=== PATIENT | female | born 1995 | race Caucasian/White ===

== ENCOUNTER 2019-01-13 01:35 | Emergency (ER) | payer BC, OTHER ==
[2019-01-13] MEDS ORDERED: PANTOPRAZOLE 40 MG INJ ONE (01:57)
[2019-01-13] MEDS ORDERED: PROMETHAZINE 25 MG/ML VIAL ONE (01:57)
[2019-01-13] MEDS ORDERED: NA CHLORIDE 0.9% 1,000 ML ONE ×2 (01:57→03:53)
[2019-01-13] MEDS ORDERED: LORazepam 2 MG/ML VIAL ONE (02:00)
[2019-01-13 03:19] LABS: Absolute Lymphocytes (CBC) 0.8 K/uL (0.7-4.9); Basophils % 0.2 % (0-1.3); Hematocrit 40.7 % (36.0-45.0); Lymphocytes % 6.2 % (15.3-44.8); MPV 9.1 fL (7.6-11.3); RBC Red Blood Cell Count 4.76 M/uL (3.86-4.86)
[2019-01-13 03:28] LABS: Albumin 4.3 g/dL (3.4-5.0); Bilirubin Direct 0.2 mg/dL (0-0.2); Bilirubin Total 0.8 mg/dL (0.2-1.0); Potassium 3.9 mmol/L (3.5-5.1); Protein, Total 8.3 g/dL (6.4-8.2)
--- NOTE | 2019-01-13 03:52 | EDPHYS ---
Physician Documentation [facility] Name: Linda Yoder Age: 23 yrs Sex: Female : 1995 Arrival Date: 01/13/2019 Time: 01:38 Bed 6 Private MD: ED Physician Kojo Moses HPI: 01/13 01:56 This 23 yrs old Female presents to ER via Unassigned with complaints of snw Abdominal Pain, Vomiting Blood. 01:56 The patient presents with abdominal pain that is diffuse. Onset: The symptoms/episode snw began/occurred suddenly, at 22:00. The symptoms radiate to left lower quadrant. Associated signs and symptoms: Pertinent positives: nausea and vomiting, vomiting blood. The symptoms are described as crampy. Severity of pain: At its worst the pain was mild moderate. The patient has experienced a previous episode, but today's symptoms are worse. It is unknown whether or not the patient has recently seen a physician. 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 - Social history:: Smoking status: Patient/guardian denies using tobacco. - Ebola Screening: : No symptoms or risks identified at this time. ROS: 01:56 Eyes: Negative for injury, pain, redness, and discharge, ENT: Negative for injury, snw pain, and discharge, Neck: Negative for injury, pain, and swelling, Cardiovascular: Negative for chest pain, palpitations, and edema, Respiratory: Negative for shortness of breath, cough, wheezing, and pleuritic chest pain. 01:56 Back: Negative for injury and pain, : Negative for injury, bleeding, discharge, and swelling, MS/Extremity: Negative for injury and deformity, Skin: Negative for injury, rash, and discoloration, Neuro: Negative for headache, weakness, numbness, tingling, and seizure, Psych: Negative for depression, anxiety, suicide ideation, homicidal ideation, and hallucinations. 01:56 Constitutional: Positive for poor PO intake. 01:56 Abdomen/GI: Positive for abdominal pain, nausea, vomiting, hematemesis. Exam: 01:53 Head/Face: Normocephalic, atraumatic. Eyes: Pupils equal round and reactive to light, snw extra-ocular motions intact. Lids and lashes normal. Conjunctiva and sclera are non-icteric and not injected. Cornea within normal limits. Periorbital areas with no swelling, redness, or edema. ENT: Nares patent. No nasal discharge, no septal abnormalities noted. Tympanic membranes are normal and external auditory canals are clear. Oropharynx with no redness, swelling, or masses, exudates, or evidence of obstruction, uvula midline. Mucous membranes moist. Neck: Trachea midline, no thyromegaly or masses palpated, and no cervical lymphadenopathy. Supple, full range of motion without nuchal rigidity, or vertebral point tenderness. No Meningismus. Chest/axilla: Normal chest wall appearance and motion. Nontender with no deformity. No lesions are appreciated. 01:53 Back: No spinal tenderness. No costovertebral tenderness. Full range of motion. MS/ Extremity: Pulses equal, no cyanosis. Neurovascular intact. Full, normal range of motion. Neuro: Awake and alert, GCS 15, oriented to person, place, time, and situation. Cranial nerves II-XII grossly intact. Motor strength 5/5 in all extremities. Sensory grossly intact. Cerebellar exam normal. Normal gait. 01:53 Constitutional: The patient appears alert, awake, anxious, hyperventilating 01:53 Cardiovascular: Rate: tachycardic, actual rate is 145 bpm, Rhythm: regular, Pulses: no pulse deficits are appreciated. 01:53 Respiratory: the patient does not display signs of respiratory distress, Respirations: shallow respirations, tachypnea, that is severe, + carpal/pedal tingling, spasms, Breath sounds: are clear throughout. 01:53 Abdomen/GI: Inspection: scar(s), stretch byers, Bowel sounds: diminished, Palpation: mild abdominal tenderness, in the right upper quadrant, left upper quadrant and right lower quadrant, moderate abdominal tenderness, in the left lower quadrant. 01:53 Skin: Appearance: Color: pale, Temperature: normal temperature, Moisture: dry. 01:53 Psych: Behavior/mood is anxious, Affect is animated, Oriented to person, place, time. 03:56 Abdomen/GI: Rectal exam: is unremarkable, rectal tone normal, Stool: guaiac negative, earle hemorrhoid(s), are not appreciated, mass, is not appreciated, swelling, is not appreciated. Vital Signs: 01:45 BP 126 / 98; Pulse 133; Resp 20; Temp 98(O); Pulse Ox 100% on R/A; Weight 68.04 kg; lp1 Height 5 ft. 8 in. (172.72 cm); Pain 10/10; 02:19 BP 115 / 83; Pulse 117; Resp 14; Pulse Ox 97% ; ea 03:00 BP 118 / 82; Pulse 105; Resp 16; Pulse Ox 98% on R/A; lp1 03:30 BP 125 / 79; Pulse 119; Resp 14; Pulse Ox 99% on R/A; lp1 04:00 BP 120 / 78; Pulse 111; Resp 14; Pulse Ox 99% on R/A; lp1 04:08 BP 120 / 78 Supine; Pulse 114; ea 04:09 BP 111 / 81 Sitting; Pulse 119; ea 04:11 BP 116 / 85 Standing; Pulse 127; ea 04:30 BP 117 / 78; Pulse 132; Resp 16; Pulse Ox 100% on R/A; lp1 05:13 BP 122 / 77; Pulse 128; Resp 14; Temp 98.1(O); Pulse Ox 100% on R/A; Pain 6/10; lp1 01:45 Body Mass Index 22.81 (68.04 kg, 172.72 cm) lp1 MDM: 01:54 Patient medically screened. [facility] 03:21 Data reviewed: vital signs, nurses notes. Transition of care: After a detail discussion snw of the patient's case, care is transferred to Kojo Moses MD. 01/13 01:46 Order name: [facility] 01/13 01:46 Order name: CBC with Diff; Complete Time: 06:33 snw 01/13 01:46 Order name: Creatinine for Radiology; Complete Time: 03:34 snw 01/13 01:46 Order name: Hepatic Function; Complete Time: 03:34 snw 01/13 01:46 Order name: Lipase; Complete Time: 03:34 snw 01/13 01:46 Order name: Urine Drug Screen; Complete Time: 06:33 snw 01/13 01:46 Order name: Urine Culture snw 01/13 01:46 Order name: Urine Microscopic Only; Complete Time: 06:33 snw 01/13 01:47 Order name: Basic Metabolic Panel; Complete Time: 03:34 EDMS 01/13 03:28 Order name: Manual Differential; Complete Time: 06:33 EDDE 01/13 03:49 Order name: CT Abd/Pelvis - IV Contrast Only [facility] 01/13 04:15 Order name: Chest Single View XRAY [facility] 01/13 04:50 Order name: Urine Dipstick--Ancillary (enter results); Complete Time: 06:33 wa 01/13 04:50 Order name: Urine --Ancillary (enter results); Complete Time: 06:33 mt 01/13 01:46 Order name: Labs collected and sent; Complete Time: 02:10 snw 01/13 01:46 Order name: Urine Test (obtain specimen); Complete Time: 04:50 snw 01/13 01:46 Order name: Urine Dipstick-Ancillary (obtain specimen); Complete Time: 04:50 sn 01/13 03:51 Order name: Orthostatics; Complete Time: 04:27 [facility] 01/13 05:17 Order name: EKG; Complete Time: 05:18 ak1 01/13 05:17 Order name: EKG - Nurse/Tech; Complete Time: 05:17 ak1 Administered Medications: 02:05 Drug: NS 0.9% 1000 ml Route: IV; Rate: 1 bolus; Site: right antecubital; lp1 03:30 Follow up: IV Status: Completed infusion; IV Intake: 1000ml lp1 02:05 Drug: ProTONIX 40 mg Route: IVP; Site: right antecubital; lp1 02:46 Follow up: Response: No adverse reaction lp1 02:05 Drug: Ativan 1 mg Route: IVP; Site: right antecubital; lp1 02:48 Follow up: Response: Marked relief of symptoms lp1 02:05 Drug: Phenergan 12.5 mg Route: IVP; Site: right antecubital; lp1 02:48 Follow up: Response: Marked relief of symptoms; Nausea is decreased lp1 03:57 Drug: NS 0.9% 1000 ml Route: IV; Rate: 1 bolus; Site: right antecubital; lp1 06:30 Follow up: IV Status: Completed infusion; IV Intake: 1000ml lp1 04:26 Drug: morphine 2 mg Route: IVP; Site: right antecubital; ea 04:26 Drug: Zofran 4 mg Route: IVP; Site: right antecubital; ea 05:00 Follow up: Response: No adverse reaction lp1 06:08 Drug: morphine 2 mg Route: IVP; Site: right antecubital; lp1 06:39 Follow up: Response: Pain is unchanged, physician notified lp1 06:39 Drug: morphine 4 mg {Note: RASS 0.} Route: IVP; Site: right antecubital; ea 06:40 Follow up: Response: Medication administered at discharge. lp1 06:39 Drug: Zofran 4 mg Route: IVP; Site: right antecubital; ea 06:40 Follow up: Response: No adverse reaction lp1 Disposition: 03:56 Co-signature as Attending Physician, Kojo Moses MD I agree with the assessment and earle plan of care. Disposition: 01/13/19 03:51 Transfer ordered to [facility]. Diagnosis are Abdominal tenderness, Gastrointestinal hemorrhage, unspecified - upper, Vomiting, Tachycardia, unspecified. - Reason for transfer: Higher level of care. - Accepting physician is to [facility] , . - Condition is Fair. - Problem is new. - Symptoms have improved. Signatures: Dispatcher [employer] EDKojo Morales MD MD cha Therrien, Shelly, CABINET INSTALLER-C CABINET INSTALLER-Csnw Sneha Le RN RN lp1 Yolande Greene RN RN ak1 Penny Vidal RN RN ea Corrections: (The following items were deleted from the chart) 06:40 03:51 01/13/2019 03:51 Transfer ordered to [facility]. Diagnosis is lp1 Abdominal tenderness; Gastrointestinal hemorrhage, unspecified - upper; Vomiting; Tachycardia, unspecified. Reason for transfer: Higher level of care. Accepting physician is to [facility] , . Condition is Fair. Problem is new. Symptoms have improved. earle
--- NOTE | 2019-01-13 03:52 | ER ---
Nurse's Notes [facility] Name: Linda Yoder Age: 23 yrs Sex: Female : 1995 Arrival Date: 01/13/2019 Time: 01:38 Bed 6 Private MD: Diagnosis: Abdominal tenderness;Gastrointestinal hemorrhage, unspecified-upper;Vomiting;Tachycardia, unspecified Presentation: 01/13 01:45 Presenting complaint: Patient states: Began vomiting blood at 2200, x4 episodes; lp1 Complaint of general abdominal pain, "It feels like contractions"; Patient noted to be hyperventilating, anxious. 01:45 Transition of care: patient was not received from another setting of care. Onset of lp1 symptoms was January 12, 2019 at 22:00. Risk Assessment: Do you want to hurt yourself or someone else? Patient reports no desire to harm self or others. Initial Sepsis Screen: Does the patient meet any 2 criteria? No. Patient's initial sepsis screen is negative. Does the patient have a suspected source of infection? No. Patient's initial sepsis screen is negative. Care prior to arrival: None. 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 - Social history:: Smoking status: Patient/guardian denies using tobacco. - Ebola Screening: : No symptoms or risks identified at this time. Screenin:19 Abuse screen: Denies threats or abuse. Denies injuries from another. Nutritional lp1 screening: No deficits noted. Tuberculosis screening: No symptoms or risk factors identified. Fall Risk None identified. Assessment: 02:00 General: Appears uncomfortable, Behavior is anxious. Pain: Complains of pain in abdomen lp1 Pain currently is 9 out of 10 on a pain scale. Quality of pain is described as stabbing, Pain began 4 hours ago. Neuro: Level of Consciousness is awake, alert, obeys commands, Oriented to person, place, time, situation. Cardiovascular: Patient's skin is warm and dry. Respiratory: Airway is patent Trachea midline Respiratory effort is labored, Respiratory pattern is hyperventilation Breath sounds are clear bilaterally. GI: Abdomen is non-distended, Bowel sounds present X 4 quads. Abdomen is tender to palpation X 4 quads. Reports vomiting blood x4. : No signs and/or symptoms were reported regarding the genitourinary system. EENT: Oral mucosa is moist. Good dentition noted. Derm: Skin is intact, Skin is dry, Skin is normal. Musculoskeletal: No deficits noted. 03:04 Reassessment: Patient assisted to bathroom via WC; Informed of urine specimen lp1 collection, states "I wasn't able to pee in the cup" Patient states symptoms have improved. 04:00 Reassessment: Patient resting, eyes closed, respirations unlabored. lp1 05:00 Reassessment: Patient returned from CT, mother at bedside; Updated on plan of care; lp1 Patient states pain to abdomen returning at this time. 05:28 Reassessment: Report called to YRIS Killian at [facility] for patient to transfer to [address] [place], [place] [address]er bed 141. 06:30 Reassessment: EMS at bedside for transfer. 1 Vital Signs: 01:45 BP 126 / 98; Pulse 133; Resp 20; Temp 98(O); Pulse Ox 100% on R/A; Weight 68.04 kg; lp1 Height 5 ft. 8 in. (172.72 cm); Pain 10/10; 02:19 BP 115 / 83; Pulse 117; Resp 14; Pulse Ox 97% ; ea 03:00 BP 118 / 82; Pulse 105; Resp 16; Pulse Ox 98% on R/A; lp1 03:30 BP 125 / 79; Pulse 119; Resp 14; Pulse Ox 99% on R/A; lp1 04:00 BP 120 / 78; Pulse 111; Resp 14; Pulse Ox 99% on R/A; lp1 04:08 BP 120 / 78 Supine; Pulse 114; ea 04:09 BP 111 / 81 Sitting; Pulse 119; ea 04:11 BP 116 / 85 Standing; Pulse 127; ea 04:30 BP 117 / 78; Pulse 132; Resp 16; Pulse Ox 100% on R/A; lp1 05:13 BP 122 / 77; Pulse 128; Resp 14; Temp 98.1(O); Pulse Ox 100% on R/A; Pain 6/10; lp1 01:45 Body Mass Index 22.81 (68.04 kg, 172.72 cm) lp1 ED Course: 01:38 Patient arrived in ED. ds1 01:45 Patient has correct armband on for positive identification. Placed in gown. Bed in low lp1 position. security monitor on. Pulse ox on. NIBP on. 01:50 Inserted saline lock: 20 gauge in right antecubital area, using aseptic technique. lp1 Blood collected. 01:52 Tina [facility]-C [facility]. snw 01:52 Kojo Moses MD is Attending Physician. snw 02:07 Sneha Le RN is Primary Nurse. lp1 02:15 Triage completed. lp1 02:16 Arm band placed on. lp1 03:05 No provider procedures requiring assistance completed. lp1 03:55 Radiology exam delayed due to test not completed at this time. sj 04:37 Radiology exam delayed due to test not completed at this time. kw1 04:[address] via stretcher. lp1 04:50 Chest Single View XRAY In Process Unspecified. EDMS 05:09 CT Abd/Pelvis - IV Contrast Only In Process Unspecified. EDMS 06:31 Patient transferred, IV remains in place. lp1 Administered Medications: 02:05 Drug: NS 0.9% 1000 ml Route: IV; Rate: 1 bolus; Site: right antecubital; lp1 03:30 Follow up: IV Status: Completed infusion; IV Intake: 1000ml lp1 02:05 Drug: ProTONIX 40 mg Route: IVP; Site: right antecubital; lp1 02:46 Follow up: Response: No adverse reaction lp1 02:05 Drug: Ativan 1 mg Route: IVP; Site: right antecubital; lp1 02:48 Follow up: Response: Marked relief of symptoms lp1 02:05 Drug: Phenergan 12.5 mg Route: IVP; Site: right antecubital; lp1 02:48 Follow up: Response: Marked relief of symptoms; Nausea is decreased lp1 03:57 Drug: NS 0.9% 1000 ml Route: IV; Rate: 1 bolus; Site: right antecubital; lp1 06:30 Follow up: IV Status: Completed infusion; IV Intake: 1000ml lp1 04:26 Drug: morphine 2 mg Route: IVP; Site: right antecubital; ea 04:26 Drug: Zofran 4 mg Route: IVP; Site: right antecubital; ea 05:00 Follow up: Response: No adverse reaction lp1 06:08 Drug: morphine 2 mg Route: IVP; Site: right antecubital; lp1 06:39 Follow up: Response: Pain is unchanged, physician notified lp1 06:39 Drug: morphine 4 mg {Note: RASS 0.} Route: IVP; Site: right antecubital; ea 06:40 Follow up: Response: Medication administered at discharge. lp1 06:39 Drug: Zofran 4 mg Route: IVP; Site: right antecubital; ea 06:40 Follow up: Response: No adverse reaction lp1 Intake: 03:30 IV: 1000ml; Total: 1000ml. lp1 06:30 IV: 1000ml; Total: 2000ml. lp1 Outcome: 03:51 ER care complete, transfer ordered by MD. og 05:30 Condition: stable lp1 05:30 Instructed on the need for transfer. 06:40 Transferred by ground EMS to [facility], Transfer form completed. lp1 X-rays sent w/ patient. 06:40 Patient left the ED. lp1 Signatures: Dispatcher [employer] EDKojo Morales MD MD cha Therrien, Shelly, DREDGE HAND-C DREDGE HAND-Soha [facility] Sneha Le, YRIS RN lp1 Penny Vidal RN RN ea Wilhelm, Kimberly kw1 Corrections: (The following items were deleted from the chart) 02:19 02:16 BP 126 / 98; Pulse 133bpm; Resp 20bpm; Pulse Ox 100% RA; Temp 98F Oral; 68.04 kg; lp1 Height 5 ft. 8 in.; BMI: 22.8; Pain 10/10; lp1 02:19 02:16 LMP 01/06/2019 lp1 lp1
[2019-01-13] MEDS ORDERED: ONDANSETRON 4 MG/2 ML VIAL ONE ×2 (04:20→06:38)
[2019-01-13] MEDS ORDERED: MORPHINE 2 MG/ML SYR ONE ×2 (04:20→06:04)
[2019-01-13 05:06] LABS: Blood Morphology Comment NOT SEEN (NOT SEEN); Platelet Estimate ADEQ
[2019-01-13 05:08] LABS: Barbiturates NEGATIVE (NEGATIVE); Benzodiazepines NEGATIVE (NEGATIVE); Cocaine NEGATIVE (NEGATIVE); METHAMPHETAM NEGATIVE (NEGATIVE); Methadone NEGATIVE (NEGATIVE); Opiates NEGATIVE (NEGATIVE); Phencyclidine NEGATIVE (NEGATIVE); THC Cannibis NEGATIVE (NEGATIVE)
[2019-01-13 05:10] LABS: Urine Bacteria <20 /HPF (<20); Urine Culture Reflex Order NOT NEEDED; Urine RBC <5 /HPF (NONE SEEN)
[2019-01-13 05:11] LABS: Urine Blood NEGATIVE (NEG); Urine Glucose NEGATIVE (NEG); Urine Protein NEGATIVE (NEG); Urine pH 8.5 (5.0-7.0)
[2019-01-13] MEDS ORDERED: MORPHINE 4 MG/ML SYR ONE (06:38)
[2019-01-13 06:57] VITALS: O2SAT 100
[2019-01-13 06:58] VITALS: BP 122/77; TEMP 98.1
--- NOTE | 2019-01-13 07:15 | RAD REPORT ---
EXAM DESCRIPTION: RAD - Chest Single View - 01/13/2019 4:49 am CLINICAL HISTORY: Chest pain, hematemesis COMPARISON: None. TECHNIQUE: AP portable chest image was obtained 0436 hours . FINDINGS: Lungs are clear. Heart and vasculature are normal. No measurable pleural effusion and no p neumothorax. No acute bony abnormality seen. No acute aortic findings suspected. IMPRESSION: No acute cardiopulmonary process.
--- NOTE | 2019-01-13 11:02 | EKG ---
Test Date: 2019-01-13 Test Time: 01:55:19 Manager Pipeline: TOMÁS MEASUREMENT RESULTS: Intervals: Rate: 127 MT: 138 QRSD: 80 QT: 304 QTc: 441 [place]: P: 52 MT: 138 QRS: 67 T: 38 INTERPRETIVE STATEMENTS: Sinus tachycardia Septal infarct, age undetermined Abnormal ECG No previous ECG available for comparison Electronically Signed On 01-13-19 11:01:21 CDT by Alvaro Quezada
--- NOTE | 2019-01-13 18:24 | RAD REPORT ---
EXAM DESCRIPTION: CT - Abdomen Pelvis W Contrast - 01/13/2019 6:56 am CLINICAL HISTORY: 23-year-old female with abdominal pain, began vomiting blood at 2200 hours x4 epis odes, abdominal pain that feels like contractions. TECHNIQUE: Axial CT imaging of the abdomen and pelvis was performed following the administration of intravenous contrast.. Sagittal and coronal reconstructed images were then performed. The CT stud y is performed according to ALARA (as low as reasonably achievable) or ALARA/IMAGE GENTLY, with autom atic adjustment of mA and/or kV according to patient size. Performed on: 01/13/2019 at 5:03 AM. COMPARISON: Prior CT abdomen and pelvis performed on 10/22/2014 FINDINGS: Lung bases: The lung bases are clear. Liver: The liver is normal in size and configuration. No focal hepatic abnormalities are identified. Liver attenuation is within normal limits. Spleen: The spleen is normal is size, configuration and attenuation. Gallbladder and bile duct: The gallbladder is well distended and unremarkable. There is no biliary ductal dilatation. Pancreas: The pancreas is grossly normal in size and configuration. Adrenal Glands: The adrenal glands are normal in size and configuration. Kidneys: The kidneys are normal in size and configuration. There is no evidence of hydronephrosis. Th ere is no evidence of nephrolithiasis. No definite solid or cystic renal mass lesions are identified. Stomach: The stomach is grossly normal. There is no definite hiatal hernia. Bowel: The bowel gas pattern is non specific and non obstructive. Appendix: The appendix is normal. Free air: There is no evidence of free air. Free fluid: There is no evidence of free fluid. Vasculature: The aorta is normal in caliber and contour. The inferior vena cava is grossly unremarkab le. Lymphadenopathy: No pathologic lymphadenopathy is identified. Bladder: The bladder is partially distended and smooth in contour. Reproductive: The uterus is grossly within normal limits. The uterus is anteflexed. Bones: No acute osseous abnormalities are identified. Soft tissues: No focal soft tissue abnormalities are identified. IMPRESSION: No evidence of acute intra-abdominal or intrapelvic pathology. Electronically signed by: Yue Craft DO 01/13/2019 5:30 AM CDT Due to temporary technical issues with the PACS/Fluency reporting system, reports are being signed by the in house radiologist as a courtesy to ensure prompt reporting. The interpreting radiologist is f ully responsible for the content of the report.
== END 2019-01-13 06:40 | disposition short-term general hospital (02) ==
LOC: ER 01:35
DX: K92.0 Hematemesis (principal); R00.0 Tachycardia, unspecified
CPT/HCPCS: 96361; 93005; 87088; 85025; 87086; 80048; 36415; 81025; 80076; 80307 ×8; 83690; 74177; 71045; 96375; 96374; 99285; Q9967; J2550; C9113; J2270 ×2; J7030 ×2; J2405 ×2; 81003; 81015

== ENCOUNTER 2019-02-03 10:46 | Emergency (ER) | payer BC ==
[2019-02-03] MEDS ORDERED: MAGNE/ALUM HYDROXD 30 ML UCUP ONE (11:47)
[2019-02-03] MEDS ORDERED: MORPHINE 4 MG/ML SYR ONE (11:48)
[2019-02-03] MEDS ORDERED: LIDOCAINE VISCOUS 2% SOLN 15 ML UDC ONE (11:48)
[2019-02-03] MEDS ORDERED: FAMOTIDINE 20 MG/2 ML VIAL IV ONE (11:48)
[2019-02-03] MEDS ORDERED: NA CHLORIDE 0.9% 1,000 ML ONE (11:48)
[2019-02-03] MEDS ORDERED: ONDANSETRON 4 MG/2 ML VIAL ONE (11:48)
[2019-02-03 12:03] LABS: Absolute Lymphocytes (CBC) 1.4 K/uL (0.7-4.9); Basophils % 0.6 % (0-1.3); Hematocrit 36.7 % (36.0-45.0); Lymphocytes % 29.7 % (15.3-44.8); MPV 8.3 fL (7.6-11.3); RBC Red Blood Cell Count 4.22 M/uL (3.86-4.86)
[2019-02-03 12:24] LABS: ALT/SGPT 18 U/L (12-78); AST/SGOT 13 U/L (15-37); Albumin 3.8 g/dL (3.4-5.0); Alkaline Phosphatase 53 U/L (45-117); BUN Blood Urea Nitrogen 9 mg/dL (7-18); Bicarbonate 27 mmol/L (21-32); Bilirubin Direct < 0.1 mg/dL (0-0.2); Bilirubin Total 0.4 mg/dL (0.2-1.0); Glucose Level 86 mg/dL (74-106); Lipase 91 U/L (73-393); Protein, Total 7.3 g/dL (6.4-8.2); Sodium Level 140 mmol/L (136-145)
--- NOTE | 2019-02-03 13:01 | RAD REPORT ---
EXAM DESCRIPTION: Butch Single View02/03/2019 12:39 pm CLINICAL HISTORY: sob COMPARISON: 01/13/2019 FINDINGS: The lungs appear clear of acute infiltrate. The heart is normal size IMPRESSION: No acute abnormalities displayed
--- NOTE | 2019-02-03 13:08 | RAD REPORT ---
EXAM DESCRIPTION: CT - Abdomen Pelvis W Contrast - 02/03/2019 12:53 pm CLINICAL HISTORY: gastritis/esophagitis/recent EGD;Abd pain COMPARISON: CT study January 13, 2019 TECHNIQUE: Biphasic, helical CT imaging of the abdomen and pelvis was performed following 100 ml non -ionic IV contrast. Oral contrast was given. All CT scans are performed using dose optimization technique as appropriate and may include automated exposure control or mA/KV adjustment according to patient size. FINDINGS: No suspicious findings in the lung bases. The liver, spleen, and pancreas show no suspicious findings. Gallbladder and biliary tree are also wi thout suspicious finding. Symmetric renal function is seen with no hydronephrosis or suspicious renal mass. No pyelonephritis o r acute parenchymal process. No bladder abnormalities. No adrenal abnormalities. No gastric wall thickening or mass identified. No edema or stranding in the fatty tissues adjacent to the stomach. No small bowel dilatation seen. The patient has numerous small mesenteric lymph nodes i n the central abdomen. These are more numerous than seen previously. The appendix is identified and n ormal. No acute colon process seen. Uterus and ovaries show no suspicious findings. No free air, free fluid or inflammatory stranding. N o hernia, mass or bulky lymphadenopathy. No suspicious bony findings. IMPRESSION: The patient has multiple small central mesenteric lymph nodes. No bulky lymphadenopathy. The mesenteric lymph nodes are more prominent than seen on the January 13 imaging. Lymph node pattern could indicate a mesenteric adenitis or nonspecific enteritis. No gastric wall thickening or mass. No stomach, duodenum or pancreatic acute process identifiable.
[2019-02-03 13:35] LABS: Urine Blood 2+ (NEG); Urine Glucose NEGATIVE (NEG); Urine Protein NEGATIVE (NEG)
--- NOTE | 2019-02-03 13:41 | EDPHYS ---
Physician Documentation [facility] [place] Name: Linda Yoder Age: 23 yrs Sex: Female : 1995 Arrival Date: 02/03/2019 Time: 10:52 Bed 25 Private MD: ED Physician Bismark Alfred HPI: 02/03 13:01 This 23 yrs old Female presents to ER via Ambulatory with complaints of rn Abdominal Pain. 13:02 This 23 yrs old Female presents to ER via Ambulatory with complaints of rn Abdominal Pain. 13:02 The patient presents with abdominal pain in the epigastric area. Onset: The rn symptoms/episode began/occurred 2 week(s) ago. The symptoms do not radiate. Associated signs and symptoms: Pertinent positives: nausea and vomiting, vomiting blood, Pertinent negatives: blood in stools, chest pain, diarrhea, fever. The symptoms are described as sharp, stabbing. Modifying factors: The symptoms are alleviated by nothing, the symptoms are aggravated by movement, pressure, touching the area. Severity of pain: At its worst the pain was moderate in the emergency department the pain is unchanged. The patient has experienced similar episodes in the past. Reports seen at [facility] 2 weeks ago for hematemesis, states had EGD there, told gastritis/esophagitis and small esophageal tear. Reports never got completely better, has been taking antacids and nausea medication, today vomited small amount of stringy blood one time, so came back in for evaluation. NO blood in stool. Reports pain radiates to chest and hard to breathe with the pain.. 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 - Social history:: Smoking status: Patient/guardian denies using tobacco. - Ebola Screening: : Patient denies exposure to infectious person Patient denies travel to an Ebola-affected area in the 21 days before illness onset. - Family history:: not pertinent. - Hospitalizations: : Patient was recently seen at. ROS: 13:02 Constitutional: Negative for fever, chills, and weight loss, Eyes: Negative for injury, rn pain, redness, and discharge, Neck: Negative for injury, pain, and swelling, Cardiovascular: Negative for chest pain, palpitations, and edema, Respiratory: Negative for cough, wheezing, and pleuritic chest pain, Abdomen/GI: + epigastric pain and vomiting MS/Extremity: Negative for injury and deformity, Skin: Negative for injury, rash, and discoloration, Neuro: Negative for headache, weakness, numbness, tingling, and seizure. Exam: 13:02 Constitutional: This is a well developed, well nourished patient who is awake, alert, rn appears uncomfortable but walks to room without difficulty or assistance. Head/Face: Normocephalic, atraumatic. Eyes: Pupils equal round and reactive to light, extra-ocular motions intact. Lids and lashes normal. Conjunctiva and sclera are non-icteric and not injected. Cornea within normal limits. Periorbital areas with no swelling, redness, or edema. ENT: MMM Cardiovascular: Regular rate and rhythm. No pulse deficits. Respiratory: Lungs have equal breath sounds bilaterally, clear to auscultation. No increased work of breathing, no retractions or nasal flaring. Abdomen/GI: soft, + epigastric tenderness, no rebound, + guarding MS/ Extremity: Pulses equal, no cyanosis. Neurovascular intact. Full, normal range of motion. Equal circumference. Neuro: Awake and alert, GCS 15, oriented to person, place, time, and situation. Cranial nerves II-XII grossly intact. Motor strength 5/5 in all extremities. Sensory grossly intact. Cerebellar exam normal. Normal gait. Vital Signs: 11:13 BP 118 / 74; Pulse 87; Resp 16; Temp 97.6(TE); Pulse Ox 98% ; ss 12:42 BP 110 / 76; Pulse 53; Resp 16 S; Pulse Ox 100% on R/A; ca1 13:20 BP 126 / 85; Pulse 86; Resp 16 S; Pulse Ox 99% on R/A; ca1 14:12 BP 125 / 81; Pulse 76; Resp 16 S; Temp 98(TE); Pulse Ox 99% on R/A; ca1 MDM: 10:57 Patient medically screened. rn 13:38 Differential diagnosis: gastritis, gastroesophageal reflux disease, GI Bleed, rn pancreatitis, Peptic Ulcer Disease, Perf. Duodenal Ulcer, Perf. Gastric Ulcer, urinary tract infection. Data reviewed: vital signs, nurses notes, lab test result(s), radiologic studies, CT scan, plain films, and as a result, I will discharge patient. Counseling: I had a detailed discussion with the patient and/or guardian regarding: the historical points, exam findings, and any diagnostic results supporting the discharge/admit diagnosis, lab results, radiology results, the need for outpatient follow up, to return to the emergency department if symptoms worsen or persist or if there are any questions or concerns that arise at home. Response to treatment: the patient's symptoms have mildly improved after treatment, and as a result, I will discharge patient. Special discussion: I discussed with the patient/guardian in detail that at this point there is no indication for admission to the hospital. It is understood, however, that if the symptoms persist or worsen the patient needs to return immediately for re-evaluation. Based on the history and exam findings, there is no indication for further emergent testing or inpatient evaluation. I discussed with the patient/guardian the need to see the comber setter for further evaluation of the symptoms. ED course: No acute changes or indication for admission, explained GERD/gastritis/esophagitis to patient as well as esophageal tear and need for time to heal. Told her to continue antacids, add Maalox or mylanta as needed. CT today shows new mesenteric adenitis and patient states diagnosed with flu yesterday and put on abx. Could be magnifying her pain or explain vomiting. . 02/03 11:21 Order name: Basic Metabolic Panel; Complete Time: 12:37 rn 02/03 11:21 Order name: CBC with Diff; Complete Time: 12:37 rn 02/03 11:21 Order name: Creatinine for Radiology; Complete Time: 12:37 rn 02/03 11:21 Order name: Hepatic Function; Complete Time: 12:37 rn 02/03 11:21 Order name: Lipase; Complete Time: 12:37 rn 02/03 13:06 Order name: Urine Dipstick--Ancillary (enter results) 02/03 11:21 Order name: CT Abd/Pelvis - IV Contrast Only; Complete Time: 13:13 rn 02/03 11:21 Order name: XRAY Chest (1 view); Complete Time: 13:13 rn 02/03 13:06 Order name: Urine --Ancillary (enter results) 02/03 11:21 Order name: IV Saline Lock; Complete Time: 11:59 rn 02/03 11:21 Order name: Labs collected and sent; Complete Time: 11:59 rn Administered Medications: 11:39 Drug: GI Cocktail without - (Maalox Suspension 30 ml, Lidocaine Liquid 2 % 15 ca1 ml) Route: PO; 13:22 Follow up: Response: No adverse reaction ca1 11:40 Drug: NS 0.9% 1000 ml Route: IV; Rate: 1000 ml; Site: left antecubital; ca1 13:22 Follow up: Response: No adverse reaction; IV Status: Completed infusion; IV Intake: ca1 1000ml 11:42 Drug: Zofran 4 mg Route: IVP; Site: left antecubital; ca1 13:21 Follow up: Response: No adverse reaction; Nausea is decreased ca1 11:45 Drug: Pepcid 20 mg Route: IVP; Site: left antecubital; ca1 13:22 Follow up: Response: No adverse reaction ca1 11:50 Drug: morphine 4 mg {Note: RASS - 0.} Route: IVP; Site: left antecubital; ca1 13:21 Follow up: Response: No adverse reaction; Pain is decreased; RASS: Alert and Calm (0) ca1 13:50 Drug: Demerol 25 mg {Note: RASS - 0.} Route: IVP; Site: left antecubital; ca1 14:06 Follow up: Response: No adverse reaction; Pain is decreased ca1 Disposition: 02/03/19 13:40 Discharged to Home. Impression: Gastritis, unspecified, Nonspecific mesenteric lymphadenitis. - Condition is Stable. - Discharge Instructions: Gastritis, Adult, Mesenteric Adenitis, Pediatric. - Prescriptions for Zofran ODT 4 mg Oral tablet,disintegrating - place 1 tablet by TRANSLINGUAL route every 8 hours As needed; 20 tablet. Tramadol 50 mg Oral Tablet - take 1 tablet by ORAL route every 8 hours as needed; 20 tablet. - Medication Reconciliation Form, Thank You Letter, Antibiotic Education, Prescription Opioid Use, Work release form form. - Follow up: Kyaw Bates MD; When: As needed; Reason: Recheck today's complaints, Re-evaluation by your physician. - Problem is an ongoing problem. - Symptoms have improved. Signatures: Dispatcher [employer] EDMS Bismark Alfred MD MD rn Smirch, Shelby, RN RN ss Acob, Deborah, RN RN ca1 Corrections: (The following items were deleted from the chart) 14:13 13:40 02/03/2019 13:40 Discharged to Home. Impression: Gastritis, unspecified; ca1 Nonspecific mesenteric lymphadenitis. Condition is Stable. Forms are Medication Reconciliation Form, Thank You Letter, Antibiotic Education, Prescription Opioid Use. Follow up: Kyaw Bates; When: As needed; Reason: Recheck today's complaints, Re-evaluation by your physician. Problem is an ongoing problem. Symptoms have improved. rn
--- NOTE | 2019-02-03 13:41 | ER ---
Nurse's Notes [facility] Name: Linda Yoder Age: 23 yrs Sex: Female : 1995 Arrival Date: 02/03/2019 Time: 10:52 Bed 25 Private MD: Diagnosis: Gastritis, unspecified;Nonspecific mesenteric lymphadenitis Presentation: 02/03 11:10 Presenting complaint: Patient states: warm, tight, burning epigastric discomfort x 3 ss weeks. Patient also reports vomiting blood tinged emesis. Transition of care: patient was not received from another setting of care. Onset of symptoms is unknown. Risk Assessment: Do you want to hurt yourself or someone else? Patient reports no desire to harm self or others. Initial Sepsis Screen: Does the patient meet any 2 criteria? No. Patient's initial sepsis screen is negative. Does the patient have a suspected source of infection? No. Patient's initial sepsis screen is negative. Care prior to arrival: None. 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 - Social history:: Smoking status: Patient/guardian denies using tobacco. - Ebola Screening: : Patient denies exposure to infectious person Patient denies travel to an Ebola-affected area in the 21 days before illness onset. - Family history:: not pertinent. - Hospitalizations: : Patient was recently seen at. Screenin:30 Abuse screen: Denies threats or abuse. Denies injuries from another. Abuse screen: ca1 Denies threats or abuse. Nutritional screening: No deficits noted. Tuberculosis screening: No symptoms or risk factors identified. Fall Risk IV access (20 points). Assessment: 11:30 General: Appears in no apparent distress. comfortable, Behavior is calm, cooperative, ca1 appropriate for age. Pain: Complains of pain in epigastric area Pain does not radiate. Pain currently is 8 out of 10 on a pain scale. Quality of pain is described as burning, Pain began about 3 weeks ago Is continuous. Neuro: Level of Consciousness is awake, alert, obeys commands, Oriented to person, place, time, situation, Appropriate for age. Cardiovascular: Heart tones S1 S2 present Capillary refill < 3 seconds Patient's skin is warm and dry. Respiratory: Airway is patent Respiratory effort is even, unlabored, Respiratory pattern is regular, symmetrical, Breath sounds are clear bilaterally. GI: Abdomen is flat, non-distended, Bowel sounds present X 4 quads. Abd is soft X 4 quads Abdomen is tender to palpation in epigastric area Reports nausea. : No deficits noted. No signs and/or symptoms were reported regarding the genitourinary system. EENT: No deficits noted. No signs and/or symptoms were reported regarding the EENT system. Derm: Skin is intact, is healthy with good turgor, Skin is pink, warm \T\ dry. Musculoskeletal: Circulation, motion, and sensation intact. Capillary refill < 3 seconds, Range of motion: intact in all extremities. 12:42 Reassessment: Patient appears in no apparent distress at this time. Patient and/or ca1 family updated on plan of care and expected duration. Pain level reassessed. Patient is alert, oriented x 3, equal unlabored respirations, skin warm/dry/pink. 13:20 Reassessment: Patient appears in no apparent distress at this time. Patient is alert, ca1 oriented x 3, equal unlabored respirations, skin warm/dry/pink. Dr. Alfred at bedside. 14:12 Reassessment: Patient appears in no apparent distress at this time. Patient is alert, ca1 oriented x 3, equal unlabored respirations, skin warm/dry/pink. Patient states feeling better. Vital Signs: 11:13 BP 118 / 74; Pulse 87; Resp 16; Temp 97.6(TE); Pulse Ox 98% ; ss 12:42 BP 110 / 76; Pulse 53; Resp 16 S; Pulse Ox 100% on R/A; ca1 13:20 BP 126 / 85; Pulse 86; Resp 16 S; Pulse Ox 99% on R/A; ca1 14:12 BP 125 / 81; Pulse 76; Resp 16 S; Temp 98(TE); Pulse Ox 99% on R/A; ca1 ED Course: 10:52 Patient arrived in ED. mr 10:57 Bismark Alfred MD is Attending Physician. rn 11:01 Deborah Hsieh RN is Primary Nurse. ca1 11:12 Triage completed. ss 11:13 Arm band placed on right wrist. ss 11:30 No provider procedures requiring assistance completed. ca1 11:45 Initial lab(s) drawn, by me, sent to lab. Urine collected: clean catch specimen, clear, jp3 martine colored. 11:50 Inserted saline lock: 22 gauge in left antecubital area, using aseptic technique. Blood jp3 collected. Patient maintains SpO2 saturation greater than 95% on room air. 11:51 Placed in gown. Bed in low position. Call light in reach. Side rails up X 1. Side rails jp3 up X2. Warm blanket given. Pillow given. Verbal reassurance given. Pulse ox on. NIBP on. 12:40 XRAY Chest (1 view) In Process Unspecified. EDMS 12:53 CT Abd/Pelvis - IV Contrast Only In Process Unspecified. EDMS 13:39 Kyaw Bates MD is Referral Physician. rn 14:13 IV discontinued, intact, bleeding controlled, No redness/swelling at site. Pressure ca1 dressing applied. Administered Medications: 11:39 Drug: GI Cocktail without - (Maalox Suspension 30 ml, Lidocaine Liquid 2 % 15 ca1 ml) Route: PO; 13:22 Follow up: Response: No adverse reaction ca1 11:40 Drug: NS 0.9% 1000 ml Route: IV; Rate: 1000 ml; Site: left antecubital; ca1 13:22 Follow up: Response: No adverse reaction; IV Status: Completed infusion; IV Intake: ca1 1000ml 11:42 Drug: Zofran 4 mg Route: IVP; Site: left antecubital; ca1 13:21 Follow up: Response: No adverse reaction; Nausea is decreased ca1 11:45 Drug: Pepcid 20 mg Route: IVP; Site: left antecubital; ca1 13:22 Follow up: Response: No adverse reaction ca1 11:50 Drug: morphine 4 mg {Note: RASS - 0.} Route: IVP; Site: left antecubital; ca1 13:21 Follow up: Response: No adverse reaction; Pain is decreased; RASS: Alert and Calm (0) ca1 13:50 Drug: Demerol 25 mg {Note: RASS - 0.} Route: IVP; Site: left antecubital; ca1 14:06 Follow up: Response: No adverse reaction; Pain is decreased ca1 Intake: 13:22 IV: 1000ml; Total: 1000ml. ca1 Outcome: 13:40 Discharge ordered by . rn 14:13 Discharged to home via wheelchair, with family. ca1 14:13 Condition: stable 14:13 Discharge instructions given to patient, Instructed on discharge instructions, follow up and referral plans. medication usage, Demonstrated understanding of instructions, follow-up care, medications, Prescriptions given X 2. 14:13 Patient left the ED. ca1 Signatures: Dispatcher [employer] EDIN Shorty Faby AlfredBismark cameron MD MD rn Smirch, Shelby, RN RN Neeraj Segura 3 Deborah Hsieh RN RN ca1
[2019-02-03] MEDS ORDERED: MEPERIDINE HCL 25 MG/0.5 ML ONE (13:52)
[2019-02-03 14:35] VITALS: O2SAT 99
[2019-02-03 14:36] VITALS: BP 125/81; TEMP 98
== END 2019-02-03 14:13 | disposition home or self-care (01) ==
LOC: ER 10:46
DX: K29.70 Gastritis, unspecified, without bleeding (principal); I88.0 Nonspecific mesenteric lymphadenitis
CPT/HCPCS: 85025; 80048; 36415; 81025; 80076; 81003; 83690; 74177; 71045; Q9967; J2175; J7030; J2405; 96361; 96374; 96375; 99284

== ENCOUNTER 2019-03-20 07:57 | Day surgery (SDC) | payer BC ==
--- OUTSIDE RECORDS SUMMARY | 2019-03-20 08:02 | XMS REPORT ---
:1995 [facility] Address [address] [place] [id number] Care Team Providers Name Role Phone NOEMY BONDS Unavailable Unavailable Problems This patient has no known problems. Allergies, Adverse Reactions, Alerts This patient has no known allergies or adverse reactions. Medications This patient has no known medications. Results Test Description Test Time Test Comments Text Results Atomic Results Result Comments CBC W/PLT COUNT & AUTO DIFFERENTIAL 2019-01-16 07:27:00 Test Item Value Reference Range Comments WHITE BLOOD CELL COUNT (BEAKER) (test fycz=529) 4.2 K/ L 3.5-10.5 RED BLOOD CELL COUNT (BEAKER) (test fdxc=503) 4.09 M/ L 3.93-5.22 HEMOGLOBIN (BEAKER) (test rlvx=202) 11.6 GM/DL 11.2-15.7 HEMATOCRIT (BEAKER) (test okzp=020) 38.2 % 34.1-44.9 MEAN CORPUSCULAR VOLUME (BEAKER) (test yrcn=501) 93.4 fL 79.4-94.8 MEAN CORPUSCULAR HEMOGLOBIN (BEAKER) (test dygr=272) 28.4 pg 25.6-32.2 MEAN CORPUSCULAR HEMOGLOBIN CONC (BEAKER) (test udvt=685) 30.4 GM/DL 32.2- 35.5 RED CELL DISTRIBUTION WIDTH (BEAKER) (test opow=415) 12.1 % 11.7-14.4 PLATELET COUNT (BEAKER) (test tlkg=034) 253 K/CU MM 150-450 MEAN PLATELET VOLUME (BEAKER) (test jrhy=770) 9.8 fL 9.4-12.3 NUCLEATED RED BLOOD CELLS (BEAKER) (test xmgc=726) 0 /100 WBC 0-0 (CELLAVISION MANUAL DIFF)2019-01-16 07:27:00 Test Item Value Reference Range Comments NEUTROPHILS - REL (CELLAVISION)(BEAKER) (test 56 % wagd=0125) LYMPHOCYTES - REL (CELLAVISION)(BEAKER) (test 28 % atob=8397) MONOCYTES - REL (CELLAVISION)(BEAKER) (test 7 % ctkx=7431) EOSINOPHILS - REL (CELLAVISION)(BEAKER) (test 6 % mvbx=4429) BASOPHILS - REL (CELLAVISION)(BEAKER) (test 2 % khja=7876) ATYPICAL LYMPHOCYTES - REL (CELLAVISION)(BEAKER) 1 % 0-0 (test nsar=0154) NEUTROPHILS - ABS (CELLAVISION)(BEAKER) (test 2.35 K/ul 1.56-6.13 oisd=9805) LYMPHOCYTES - ABS (CELLAVISION)(BEAKER) (test 1.18 K/ul 1.18-3.74 tuof=0346) MONOCYTES - ABS (CELLAVISION)(BEAKER) (test 0.29 K/uL 0.24-0.36 lvcv=0283) EOSINOPHILS - ABS (CELLAVISION)(BEAKER) (test 0.25 K/uL 0.04-0.36 sejd=0762) BASOPHILS - ABS (CELLAVISION)(BEAKER) (test 0.08 K/uL 0.01-0.08 jxxd=8876) ATYPICAL LYMPHOCYTES - ABS (CELLAVISION)(BEAKER) 0.04 K/uL 0.00-0.00 (test nohj=9431) TOTAL COUNTED (BEAKER) (test zuym=9022) 100 RBC MORPHOLOGY (BEAKER) (test xrcj=901) Normal WBC MORPHOLOGY (BEAKER) (test qata=840) Normal PLT MORPHOLOGY (BEAKER) (test shsc=056) Normal ARTIFACT (CELLAVISION)(BEAKER) (test qgka=2239) Present PLATELET CONCENTRATION (CELLAVISION)(BEAKER) (test Adequate gvym=0036) Received comment: User comments: Slide comments:[id number] 06:55:00 Test Item Value Reference Range Comments MAGNESIUM (BEAKER) (test jygy=751) 1.9 mg/dL 1.6-2.6 BASIC METABOLIC [id number] 06:55:00 Test Item Value Reference Range Comments SODIUM (BEAKER) (test 139 meq/L 136-145 teox=552) POTASSIUM (BEAKER) (test 3.8 meq/L 3.5-5.1 ojwk=483) CHLORIDE (BEAKER) (test 109 meq/L 98-107 bwde=907) CO2 (BEAKER) (test 25 meq/L 22-29 zgho=675) BLOOD UREA NITROGEN 4 mg/dL 7-21 (BEAKER) (test wrhc=635) CREATININE (BEAKER) (test 0.77 mg/dL 0.57-1.25 zyvd=535) GLUCOSE RANDOM (BEAKER) 85 mg/dL 70-105 (test uzlg=815) CALCIUM (BEAKER) (test 8.5 mg/dL 8.4-10.2 bfrz=820) EGFR (BEAKER) (test 95 mL/min/1.73 sq m ESTIMATED GFR IS NOT gsfx=8960) ACCURATE CREATININE CLEARANCE IN PREDICTING GLOMERULAR FILTRATION RATE. ESTIMATED GFR IS NOT APPLICABLE FOR DIALYSIS PATIENTS. RAD, ABDOMEN/KUB, 1 VIEW [id number] 12:53:00Reason for exam:->r/o obstructionShould this be performed at the bedside?->YesFINAL REPORT CLINICAL HISTORY: obstruction TECHNIQUE: Supine abdomen COMPARISON: None IMPRESSION: The bowel gas pattern is nonspecific. Free air and air-fluid levels are not definitively seen, but also cannot be excluded on the supine view. Signed: Rea Beaulieu MDReport Verified Date/Time: 01/15/2019 12: 53:50 Reading Location: [facility] Radiology Reading Room TISSUE [id number] 11:40:00Surgical Pathology Report Case: [id number] Authorizing Provider: Moon Alvarez MD Collected: 01/13/2019 1112 Ordering Location: [address] Received: 01/14/2019 1144 Service Pathologist: Brad Preciado MD Specimen: Biopsy, Gastric, R/O H.Pylori A. STOMACH, RANDOM BIOPSIES: - MILD CHRONIC INACTIVE GASTRITIS - NEGATIVE FOR HELICOBACTER PYLORI ORGANISMS BY WARTHIN STARRY STAIN - NEGATIVE FOR INTESTINAL METAPLASIA, DYSPLASIA, MALIGNANCY Signing [facility] Phone Line: [phone]. Gastric biopsy, rule out H. pyloriThe specimen is received in one part labeled withthe patient's information as [id number] which corresponds to the accompanying requisition slip. A. Received in formalin labeled "gastric biopsy, r/o H.pylori" are two fragments of hathaway-pink to hathaway-white soft tissue measuring 0.2 x 0.1 x 0.1 cm in aggregate. They are submitted in toto after filtration incassette A1. SC/plPerformed.The interpretation of this case included the use of immunohistochemistry or special stains.Control Slides Examined: In-house known positive controls were evaluated along with the test tissue. These control slides run alongside of the patients sample show appropriate staining. Internal positive and negative controls when available are evaluated Immunohistochemistry technical testing was performed at [facility], Pathology Laboratory where it was developed and its performance characteristics were determined. It has not been cleared or approved by the U.S. Food and Drug Administration. The FDA has determined that such clearance or approval is not necessary. The test is used for clinical purposes. It should not be regarded as investigational or for research. This laboratory is certified under the Clinical Laboratory Improvement Amendments of 1988 (CLIA-88) as qualified to perform high complexity clinical laboratory testing.CBC W/PLT COUNT & AUTO [id number] 07:43:00 Test Item Value Reference Range Comments WHITE BLOOD CELL COUNT 4.3 K/ L 3.5-10.5 (BEAKER) (test ectn=837) RED BLOOD CELL COUNT (BEAKER) 3.99 M/ L 3.93-5.22 (test fwjh=967) HEMOGLOBIN (BEAKER) (test 11.6 GM/DL 11.2-15.7 rguu=658) HEMATOCRIT (BEAKER) (test 37.5 % 34.1-44.9 cgbk=245) MEAN CORPUSCULAR VOLUME 94.0 fL 79.4-94.8 Discordant result compared (BEAKER) (test fang=353) to previous result; clinical correlation required. MEAN CORPUSCULAR HEMOGLOBIN 29.1 pg 25.6-32.2 (BEAKER) (test rykk=620) MEAN CORPUSCULAR HEMOGLOBIN 30.9 GM/DL 32.2-35.5 CONC (BEAKER) (test fsjl=690) RED CELL DISTRIBUTION WIDTH 12.3 % 11.7-14.4 (BEAKER) (test pxuc=863) PLATELET COUNT (BEAKER) (test 237 K/CU MM 150-450 spdh=871) MEAN PLATELET VOLUME (BEAKER) 9.9 fL 9.4-12.3 (test ftvi=356) NUCLEATED RED BLOOD CELLS 0 /100 WBC 0-0 (BEAKER) (test gogh=434) NEUTROPHILS RELATIVE PERCENT 58 % (BEAKER) (test ijqa=501) LYMPHOCYTES RELATIVE PERCENT 27 % (BEAKER) (test dajp=806) MONOCYTES RELATIVE PERCENT 11 % (BEAKER) (test tecg=389) EOSINOPHILS RELATIVE PERCENT 4 % (BEAKER) (test gtqg=792) BASOPHILS RELATIVE PERCENT 0 % (BEAKER) (test ydhg=562) NEUTROPHILS ABSOLUTE COUNT 2.48 K/ L 1.56-6.13 (BEAKER) (test qtyo=284) LYMPHOCYTES ABSOLUTE COUNT 1.13 K/ L 1.18-3.74 (BEAKER) (test wxak=257) MONOCYTES ABSOLUTE COUNT 0.45 K/ L 0.24-0.36 (BEAKER) (test uvuq=243) EOSINOPHILS ABSOLUTE COUNT 0.17 K/ L 0.04-0.36 (BEAKER) (test ktjj=769) BASOPHILS ABSOLUTE COUNT 0.01 K/ L 0.01-0.08 (BEAKER) (test jqkv=160) IMMATURE 0 % 0-1 GRANULOCYTES-RELATIVE PERCENT (BEAKER) (test jqtv=6767) [id number] 06:23:00 Test Item Value Reference Range Comments PHOSPHORUS (BEAKER) (test bmzg=702) 3.1 mg/dL 2.3-4.7 [id number] 06:23:00 Test Item Value Reference Range Comments MAGNESIUM (BEAKER) (test rukd=984) 2.3 mg/dL 1.6-2.6 BASIC METABOLIC [id number] 06:23:00 Test Item Value Reference Range Comments SODIUM (BEAKER) (test 138 meq/L 136-145 xcse=658) POTASSIUM (BEAKER) (test 4.3 meq/L 3.5-5.1 wqtx=582) CHLORIDE (BEAKER) (test 110 meq/L 98-107 doob=997) CO2 (BEAKER) (test 24 meq/L 22-29 fzap=202) BLOOD UREA NITROGEN 5 mg/dL 7-21 (BEAKER) (test wmpv=892) CREATININE (BEAKER) (test 0.66 mg/dL 0.57-1.25 nzmh=600) GLUCOSE RANDOM (BEAKER) 85 mg/dL 70-105 (test bzuy=973) CALCIUM (BEAKER) (test 8.3 mg/dL 8.4-10.2 soss=121) EGFR (BEAKER) (test 113 mL/min/1.73 sq m ESTIMATED GFR IS NOT vokt=8656) ACCURATE CREATININE CLEARANCE IN PREDICTING GLOMERULAR FILTRATION RATE. ESTIMATED GFR IS NOT APPLICABLE FOR DIALYSIS PATIENTS. RAPID DRUG SCREEN, [id number] 19:26:00 Test Item Value Reference Range Comments BARBITURATE URINE (BEAKER) (test ziye=875) Negative Negative BENZODIAZEPINE SCREEN URINE (BEAKER) (test Negative Negative jaem=787) COCAINE (METAB.) SCREEN (BEAKER) (test gwos=1674) Negative Negative METHADONE SCREEN (BEAKER) (test gwjh=2141) Negative Negative OPIATE SCREEN URINE (BEAKER) (test susi=493) Positive Negative CANNABINOID SCREEN URINE (BEAKER) (test acxi=023) Negative Negative AMPH/METHAMPH SCREEN (BEAKER) (test jrpx=8495) Negative Negative PHENCYCLIDINE SCREEN URINE (BEAKER) (test zzgp=298) Negative Negative DRUG CUTOFF CONC.Cocaine 300 ng/mL Cannabinoid 50 ng/mLBenzodiazepine 200 ng/mLBarbiturate 200 ng/ mLPhencyclidine 25 ng/mLOpiate 300 ng/mLMethadone 300 ng/mLAmphetamine/ 1000 ng/mL MethamphetamineThis assay provides an unconfirmed qualitative test result for the clinical management of patients in emergency situations. Chain of custody not maintained. Some capq-jdv-alklyks medications, as well as adulterants, may cause inaccurate results. Clinical correlation should be applied. A more comprehensivedrug screen or confirmation of a detected drug may be performed upon request. SCREEN, [id number] 17:32:00 Test Item Value Reference Range Comments TEST URINE (BEAKER) (test biur=430) Negative [id number] 06:43:00 Test Item Value Reference Range Comments PHOSPHORUS (BEAKER) (test magh=246) 2.9 mg/dL 2.3-4.7 [id number] 06:43:00 Test Item Value Reference Range Comments MAGNESIUM (BEAKER) (test cfxc=005) 1.7 mg/dL 1.6-2.6 BASIC METABOLIC [id number] 06:43:00 Test Item Value Reference Range Comments SODIUM (BEAKER) (test 136 meq/L 136-145 hziw=420) POTASSIUM (BEAKER) (test 3.5 meq/L 3.5-5.1 jtnp=505) CHLORIDE (BEAKER) (test 107 meq/L 98-107 lfif=993) CO2 (BEAKER) (test 25 meq/L 22-29 zlic=924) BLOOD UREA NITROGEN 7 mg/dL 7-21 (BEAKER) (test jnic=945) CREATININE (BEAKER) (test 0.73 mg/dL 0.57-1.25 khtx=737) GLUCOSE RANDOM (BEAKER) 81 mg/dL 70-105 (test qmaa=180) CALCIUM (BEAKER) (test 7.9 mg/dL 8.4-10.2 kcua=786) EGFR (BEAKER) (test 101 mL/min/1.73 sq m ESTIMATED GFR IS NOT yyvw=3636) ACCURATE CREATININE CLEARANCE IN PREDICTING GLOMERULAR FILTRATION RATE. ESTIMATED GFR IS NOT APPLICABLE FOR DIALYSIS PATIENTS. [id number] 11:27:00 Test Item Value Reference Range Comments PHOSPHORUS (BEAKER) (test kpnj=118) 3.3 mg/dL 2.3-4.7 [id number] 11:27:00 Test Item Value Reference Range Comments MAGNESIUM (BEAKER) (test imoq=364) 1.6 mg/dL 1.6-2.6 BASIC METABOLIC [id number] 11:27:00 Test Item Value Reference Range Comments SODIUM (BEAKER) (test 136 meq/L 136-145 tder=251) POTASSIUM (BEAKER) (test 3.6 meq/L 3.5-5.1 cwfd=419) CHLORIDE (BEAKER) (test 105 meq/L 98-107 knfo=620) CO2 (BEAKER) (test 24 meq/L 22-29 iauw=674) BLOOD UREA NITROGEN 12 mg/dL 7-21 (BEAKER) (test yhwp=620) CREATININE (BEAKER) (test 0.76 mg/dL 0.57-1.25 qdnw=828) GLUCOSE RANDOM (BEAKER) 81 mg/dL 70-105 (test kdgy=148) CALCIUM (BEAKER) (test 8.2 mg/dL 8.4-10.2 tusg=681) EGFR (BEAKER) (test 96 mL/min/1.73 sq m ESTIMATED GFR IS NOT svvf=0061) ACCURATE CREATININE CLEARANCE IN PREDICTING GLOMERULAR FILTRATION RATE. ESTIMATED GFR IS NOT APPLICABLE FOR DIALYSIS PATIENTS. [id number] 11:27:00 Test Item Value Reference Range Comments LIPASE (BEAKER) (test tzva=527) 9 U/L 8-78 CBC W/PLT COUNT & AUTO [id number] 11:22:00 Test Item Value Reference Range Comments WHITE BLOOD CELL COUNT (BEAKER) (test bwxm=469) 8.1 K/ L 3.5-10.5 RED BLOOD CELL COUNT (BEAKER) (test ccei=690) 4.20 M/ L 3.93-5.22 HEMOGLOBIN (BEAKER) (test nqim=330) 12.2 GM/DL 11.2-15.7 HEMATOCRIT (BEAKER) (test ehpo=680) 37.8 % 34.1-44.9 MEAN CORPUSCULAR VOLUME (BEAKER) (test dkju=792) 90.0 fL 79.4-94.8 MEAN CORPUSCULAR HEMOGLOBIN (BEAKER) (test 29.0 pg 25.6-32.2 sfrs=327) MEAN CORPUSCULAR HEMOGLOBIN CONC (BEAKER) (test 32.3 GM/DL 32.2-35.5 aqeo=807) RED CELL DISTRIBUTION WIDTH (BEAKER) (test 12.3 % 11.7-14.4 btqm=411) PLATELET COUNT (BEAKER) (test jnnz=750) 267 K/CU MM 150-450 MEAN PLATELET VOLUME (BEAKER) (test pilo=602) 9.8 fL 9.4-12.3 NUCLEATED RED BLOOD CELLS (BEAKER) (test 0 /100 WBC 0-0 baxc=707) NEUTROPHILS RELATIVE PERCENT (BEAKER) (test 87 % wwxm=618) LYMPHOCYTES RELATIVE PERCENT (BEAKER) (test 8 % udyy=823) MONOCYTES RELATIVE PERCENT (BEAKER) (test 5 % siey=124) EOSINOPHILS RELATIVE PERCENT (BEAKER) (test 0 % uezx=605) BASOPHILS RELATIVE PERCENT (BEAKER) (test 0 % rrpp=117) NEUTROPHILS ABSOLUTE COUNT (BEAKER) (test 7.04 K/ L 1.56-6.13 ecle=775) LYMPHOCYTES ABSOLUTE COUNT (BEAKER) (test 0.63 K/ L 1.18-3.74 mdtp=861) MONOCYTES ABSOLUTE COUNT (BEAKER) (test 0.40 K/ L 0.24-0.36 iidj=059) EOSINOPHILS ABSOLUTE COUNT (BEAKER) (test 0.00 K/ L 0.04-0.36 bndu=924) BASOPHILS ABSOLUTE COUNT (BEAKER) (test 0.02 K/ L 0.01-0.08 bunh=697) IMMATURE GRANULOCYTES-RELATIVE PERCENT (BEAKER) 0 % 0-1 (test jruc=2410)
[2019-03-20] MEDS ORDERED: Ringers Lactate 1,000 ML IV ONE (08:14)
[2019-03-20 08:18] LABS: Specific Gravity 1.025 (1.005-1.030)
[2019-03-20] MEDS ORDERED: LIDOCAINE 2% MPF 5 ML VIAL ONE (09:02)
[2019-03-20] MEDS ORDERED: dexAMETHasone 10 MG/ML VIAL ONE (09:02)
[2019-03-20] MEDS ORDERED: propofoL 200 MG/20 ML VIAL IV ONE (09:02)
[2019-03-20] MEDS ORDERED: ROCURONIUM 50 MG/5 ML VIAL IV ONE (09:02)
[2019-03-20] MEDS ORDERED: FENTANYL CITR 100 MCG/2 ML ONE (09:02)
[2019-03-20] MEDS: BUPIVACA 0.5%/EPI 0.0005%/PF 10 ML VIAL ONE ×2 (09:32→09:40)
--- NOTE | 2019-03-20 09:45 | P.OP ---
Pre-Op Diagnosis: Recurrent acute tonsillitis Post-Op Diagnosis: Recurrent acute tonsillitis, Chronic tonsillitis Procedure: Tonsillectomy Anesthesia: Other (General via ETT) Fluids/ Blood products: Other (crystalloid 500ml) Estimated blood loss: Other (<10ml) Specimen: Other (bilateral tonsils) Complications: None Implants: None Indication: Patient persistent issues in spite of good medical management. Details of Operation: The patient was brought to the operating room and placed under general anesthesia via endotracheal tube. The head of bed was turned 90 degrees. A Shoulder roll was placed and the neck extended. A head drape was applied. The McIvor mouth gag was placed and suspended from the Robb stand. The oxygen concentrate was confirmed with the environmental health manager and was less than forty percent. Weight-based dexamethasone was administered by the environmental health manager. The soft palate was palpated and there was no submucous cleft. A red rubber catheter was placed in the nose and secured to retract the soft palate. The tonsils were noted to be large, with deep crypts and liths. The left tonsil was grasped with a straight Allis clamp. The bovie electocautery was used to incision the mucosa over the anterior pillar and identify the tonsillar capsule. The tonsil was dissected using cautery and blunt dissection until free from soft tissue attachments. A tonsil ball was placed to aid hemostasis. The right tonsil was removed in a similar manner. The laryngeal mirror was used to visualize the nasopharynx. The adenoid size was minimal. The adenoids were not removed. Hemostasis was achieved using packing and cautery as needed. Blood loss was minimal. All packing was removed. The tonsillar fossae were injected with 0.5% Marcaine with epinephrine. A total of 3 mL was used. A Salum sump orogastric tube was used to decompress the stomach. The red rubber catheter was removed and used to suction the nasopharynx and nasal cavity. The mouth gag was removed; there was no evidence of injury to the lips, teeth or tongue. The mandible was mobile. Disposition: The patient was then awakened from anesthesia and taken to the recovery room in stable condition.
[2019-03-20] MEDS ORDERED: ONDANSETRON 4 MG/2 ML VIAL ONE (09:58)
[2019-03-20] MEDS: HYDROMORPHONE HCL 2 MG/ML inj ONE ×4 (09:59→10:18)
[2019-03-20] MEDS ORDERED: MEPERIDINE HCL 25 MG/0.5 ML ONE (10:10)
[2019-03-20] MEDS ORDERED: HYDROMORPHONE HCL 1 MG/ML INJ ONE (10:27)
[2019-03-20] MEDS ORDERED: HYDROCOD 2.5mg-ACETAMIN 108mg/5mL Soln ONE (11:04)
[2019-03-20 12:15] VITALS: BP 94/83; TEMP 97.8; O2SAT 100
== END 2019-03-20 12:05 | disposition home or self-care (01) ==
LOC: OR 07:57
PROVIDERS: ATTEND Otolaryngology
PROC: 0CTPXZZ Resection of Tonsils, External Approach (ICD-10-PCS; principal; 2019-03-20 09:00)
DX: J03.01 Acute recurrent streptococcal tonsillitis (principal); J35.01 Chronic tonsillitis; K21.9 Gastro-esophageal reflux disease without esophagitis
CPT/HCPCS: 81025; 88304; 42826; J2704; J1170 ×2; J3010; J1100; J2175; J7120; J2405

== ENCOUNTER 2019-10-20 16:54 | Emergency (ER) | payer BC ==
--- NOTE | 2019-10-20 18:08 | ER ---
Nurse's Notes [facility] Name: Linda Yoder Age: 24 yrs Sex: Female : 1995 Arrival Date: 10/20/2019 Time: 16:57 Bed Waiting Private MD: Diagnosis: Presentation: 10/19 17:50 Note Called from lobby. Unanswered. ca1 ED Course: 16:57 Patient arrived in ED. fj1 Administered Medications: No medications were administered Outcome: 18:07 Patient left the ED. ca1 Signatures: Deborah Hsieh RN RN ca1 Hay Lutz fj1
--- OUTSIDE RECORDS SUMMARY | 2019-10-21 02:02 | XMS REPORT | Clinical Summary ---
:1995 Author Organization [facility] Address [address] [place] [address] Care Team Providers Name Role Phone Asked, No Pcp Primary Care Provider Unavailable Allergies Active Allergy Reactions Severity Noted Date Comments Haloperidol Hallucinations 02/07/2019 Medications Medication Sig Dispensed Refills Start End Status Date Date traMADol (ULTRAM) Take 50 mg by 0 Active 50 mg mouth every 6 tabletIndications: (six) hours as acute pain needed for moderate pain .Acute Pain. sucralfate Take 1 g by 0 Active (CARAFATE) 1 gram mouth 4 (four) tablet times a day. gabapentin Take 1 capsule 90 capsule 11 02/13/20 Act sonia (NEURONTIN) 300 mg (300 mg total) 19 020 capsule by mouth 3 (three) times a day. pantoprazole Take 1 tablet 60 tablet 0 02/13/20 Act sonia (PROTONIX) 40 MG (40 mg total) 19 EC tablet by mouth 2 (two) times a day. dicyclomine Take 1 tablet 120 tablet 11 02/13/20 Act sonia (BENTYL) 20 mg (20 mg total) 19 020 tablet by mouth 4 (four) times a day. pantoprazole Take 40 mg by 0 Dis continued (PROTONIX) 40 MG mouth daily. 019 (Stop Taking at EC tablet Discharge) ondansetron Take 4 mg by 0 Disco ntinued (ZOFRAN) 4 MG mouth every 8 019 (S top Taking at tablet (eight) hours Discha rge) as needed for nausea or vomiting. gabapentin Take 100 mg by 0 Disc ontinued (NEURONTIN) 100 mg mouth 3 (three) 019 (Stop Taking at capsule times a day. Dischar ge) phenol Apply 2 sprays 1 Bottle 0 02/13/20 Expir ed (CHLORASEPTIC) 1.4 to the mouth or 19 019 % aerosol,spray throat every 4 (four) hours as needed (sore throat) for up to 7 days. promethazine Insert 1 6 suppository 0 02/13/20 Exp ired (PHENERGAN) 25 MG suppository (25 019 suppository mg total) into the rectum every 6 (six) hours as needed for nausea or vomiting for up to 30 days. ondansetron ODT Take 1 tablet 42 tablet 0 02/13/20 (ZOFRAN ODT) 4 MG (4 mg total) by 019 disintegrating mouth every 8 tablet (eight) hours as needed for nausea or vomiting for up to 14 days. Active Problems No known active problems Resolved Problems Problem Noted Date Resolved Date Intractable vomiting 02/07/2019 02/12/2019 Encounters Date Type Specialty Care Team Description 02/07/2019 - Hospital Encounter General Internal Archibald, Intra ctable vomiting 02/12/2019 Medicine MD Romero with nausea, Lisa, Mohamed unspecified vomiting MD Katherin type (Primary D x) 02/07/2019 Travel after 10/19/2018 Family History Medical History Relation Name Comments GERD Maternal Grandmother Colon cancer Other Maternal great GM Relation Name Status Comments Maternal Grandmother Other Maternal great GM Alive Social History Tobacco Use Types Packs/Day Years Used Date Never Smoker Smokeless Tobacco: Never Used Alcohol Use Drinks/Week oz/Week Comments Yes Holidays only, 1 -2 drinks Alcohol Habits Answer Date Recorded How often do you have a drink containing alcohol? Monthly or less 02/09/2019 How many drinks containing alcohol do you have on a 1 or 2 02/09/2019 typical day when you are drinking? How often do you have six or more drinks on one Never 02/09/2019 occasion? Sex Assigned at Date Recorded Not on file Job Start Date Occupation Industry Not on file Not on file Not on file Travel History Travel Start Travel End No recent travel history available. Last Filed Vital Signs Vital Sign Reading Time Taken Comments Blood Pressure 108/71 02/12/2019 11:22 AM CDT Pulse 63 02/12/2019 11:22 AM CDT Temperature 35.8 C (96.4 F) 02/12/2019 11:22 AM CDT Respiratory Rate 18 02/12/2019 11:22 AM CDT Oxygen Saturation 97% 02/12/2019 11:22 AM CDT Inhaled Oxygen Concentration - - Weight 70.3 kg (155 lb) 02/07/2019 5:57 PM CDT Height 172.7 cm (5' 8") 02/09/2019 10:07 PM CDT Body Mass Index 23.57 02/07/2019 5:57 PM CDT Plan of Treatment Health Maintenance Due Date Last Done Comments CHLAMYDIA SCREENING 2013 CERVICAL CANCER SCREENING 2018 INFLUENZA VACCINE 11/14/2019 Procedures Procedure Name Priority Date/Time Associated Comments Diagnosis MRI PELVIS W WO Routine 02/11/2019 8:34 Results for this CONTRAST AM CDT procedure are i n the results section. MRI ABDOMEN W WO Routine 02/11/2019 8:34 Results for this CONTRAST AM CDT procedure are i n the results section. SEDIMENTATION RATE Routine 02/11/2019 6:00 Resul ts for this AM CDT procedure are i n the results section. HC COMPLETE BLD COUNT Routine 02/11/2019 6:00 Re sults for this W/AUTO DIFF AM CDT procedure are i n the results section. ESTIMATED GFR Routine 02/11/2019 4:00 Results fo r this AM CDT procedure are i n the results section. C-REACTIVE PROTEIN Routine 02/11/2019 4:00 Resul ts for this AM CDT procedure are i n the results section. COMPREHENSIVE Routine 02/11/2019 4:00 Results fo r this METABOLIC PANEL AM CDT procedure ar e in the results section. STREP SCREEN CULTURE Routine 02/10/2019 10:40 Res ults for this PM CDT procedure are i n the results section. NM HEPATOBILIARY STAT 02/10/2019 7:43 Results for this PM CDT procedure are i n the results section. US GALLBLADDER Routine 02/10/2019 3:00 Results f or this PM CDT procedure are i n the results section. LIPASE LEVEL Routine 02/10/2019 10:34 Results for this AM CDT procedure are i n the results section. HC COMPLETE BLD COUNT Routine 02/10/2019 5:00 Re sults for this W/AUTO DIFF AM CDT procedure are i n the results section. ESTIMATED GFR Routine 02/10/2019 4:00 Results fo r this AM CDT procedure are i n the results section. COMPREHENSIVE Routine 02/10/2019 4:00 Results fo r this METABOLIC PANEL AM CDT procedure ar e in the results section. HC COMPLETE BLD COUNT Routine 02/09/2019 6:30 Re sults for this W/AUTO DIFF AM CDT procedure are i n the results section. ESTIMATED GFR Routine 02/09/2019 4:00 Results fo r this AM CDT procedure are i n the results section. COMPREHENSIVE Routine 02/09/2019 4:00 Results fo r this METABOLIC PANEL AM CDT procedure ar e in the results section. CT ABDOMEN PELVIS W Routine 02/08/2019 12:31 Resu lts for this CONTRAST PM CDT procedure are i n the results section. HEMOGLOBIN & Timed 02/08/2019 6:30 Results for this HEMATOCRIT AM CDT procedure are i n the results section. HEMOGLOBIN & Timed 02/08/2019 2:00 Results for this HEMATOCRIT AM CDT procedure are i n the results section. URINE DRUGS OF ABUSE Routine 02/07/2019 9:00 Res ults for this SCREEN PM CDT procedure are i n the results section. HCG QUALITATIVE, URINE STAT 02/07/2019 6:53 R esults for this SCREEN PM CDT procedure are i n the results section. URINALYSIS STAT 02/07/2019 6:53 Results for this PM CDT procedure are i n the results section. ESTIMATED GFR STAT 02/07/2019 6:04 Results fo r this PM CDT procedure are i n the results section. COMPREHENSIVE STAT 02/07/2019 6:04 Results fo r this METABOLIC PANEL PM CDT procedure ar e in the results section. HC COMPLETE BLD COUNT STAT 02/07/2019 6:04 Re sults for this W/AUTO DIFF PM CDT procedure are i n the results section. after 10/19/2018 Results MRI Abdomen W Wo Contrast (02/11/2019 8:34 AM CDT) Specimen Narrative Performed At This result has an attachment that is no t available. EXAMINATION: MRI ABDOMEN W WO CONTRAST, MRI PELVIS W WO CONTRAST [facility] CLINICAL HISTORY: Concern for Small [place] wel inflammation. Pleae perform MR enterography protocol. TECHNIQUE: Multiplanar multisequence MR images of the abdomen and pelvis were obtained pre- and post dynamic intravenous administration of Gadolinium. MR enterography protocol was obtained. COMPARISON: CT abdomen and pelvis 02/08/2019 FINDINGS: 1.There are no signs of small or large b owel inflammation. Specifically, there is no bowel wall or mucosal fold thickening or edema, mucosal hyperenhancement, or perienteric or pericolonic edema or vasa recta engorgement. There is no evidence of small or large bowel obstruction. No mass is seen. 2.The stomach and appendix are normal. 3.The liver, spleen, pancreas, gallbladd er, bile ducts, and adrenals are normal. 4.The kidneys and urinary bladder are normal. 5.The uterus and ovaries are normal. Tra ce free fluid in the pelvic cul-de-sac is in the normal physiologic range. 6.There is no vascular abnormality. 7.No lymphadenopathy is seen. 8.No marrow abnormality is seen. IMPRESSION: No evidence of small bowel inflammation. [id number] Procedure Note Interface, Radiology Results Incoming - 02/11/2019 9:46 AM CDT EXAMINATION: MRI ABDOMEN W WO CONTRAST, MRI PELVIS W WO CONTRAST CLINICAL HISTORY: Concern for Small [place] el inflammation. Pleae perform MR enterography protocol. TECHNIQUE: Multiplanar multisequence MR images of the abdomen and pelvis were obtained pre- and post dynamic intravenous administration of Gadolinium. MR enterography protocol was obtained. COMPARISON: CT abdomen and pelvis 02/08 FINDINGS: 1.There are no signs of small or large b owel inflammation. Specifically, there is no bowel wall or mucosal fold thickening or edema, mucosal hyperenhancement, or perienteric or pericolonic edema or vasa recta engorgement. There is no evidence of sma ll or large bowel obstruction. No mass is see n. 2.The stomach and appendix are normal. 3.The liver, spleen, pancreas, gallbladd er, bile ducts, and adrenals are normal. 4.The kidneys and urinary bladder are no rmal. 5.The uterus and ovaries are normal. Tra ce free fluid in the pelvic cul-de-sac is in the normal physiologic range. 6.There is no vascular abnormality. 7.No lymphadenopathy is seen. 8.No marrow abnormality is seen. IMPRESSION: No evidence of small bowel inflammation . [facility]-[id number] Performing Organization Address City/State/Zipcode Phone Number [employer] [address] [place] [address] MRI Pelvis W Wo Contrast (02/11/2019 8:34 AM CDT) Specimen Narrative Performed At EXAMINATION: MRI ABDOMEN W WO CONTRAST , MRI PELVIS W WO CONTRAST [facility] CLINICAL HISTORY: Concern for Small Bowel inflammati on. Pleae perform MR enterography protocol. TECHNIQUE: Multiplanar multisequence MR images of the abdomen and pelvis were obtained pre- and post dynamic intravenous admini stration of Gadolinium. MR enterography protocol w as obtained. COMPARISON: CT abdomen and pelvis 01/14 FINDINGS: 1.There are no signs of small or large bowel inflammat ion. Specifically, there is no bowel wall or mucosal fold thickening or e rupali, mucosal hyperenhancement, or perienteric or pericolonic edema or vasa recta engorgement. There is no evidence of sma ll or large bowel obstruction. No mass is see n. 2.The stomach and appendix are normal. 3.The liver, spleen, pancreas, gallbladder, bile ducts , and adrenals are normal. 4.The kidneys and urinary bladder are no rmal. 5.The uterus and ovaries are normal. Trace free fluid in the pelvic cul-de-sac is in the normal physiologic range. 6.There is no vascular abnormality. 7.No lymphadenopathy is seen. 8.No marrow abnormality is seen. IMPRESSION: No evidence of small bowel inflammation . [facility]-[id number] Procedure Note Interface, Radiology Results Incoming - 02/11/2019 9:46 AM CDT EXAMINATION: MRI ABDOMEN W WO CONTRAST, MRI PELVIS W WO CONTRAST CLINICAL HISTORY: Concern for Small [place] el inflammation. Pleae perform MR enterography protocol. TECHNIQUE: Multiplanar multisequence MR images of the abdomen and pelvis were obtained pre- and post dynamic intravenous administration of Gadolinium. MR enterography protocol was obtained. COMPARISON: CT abdomen and pelvis 02/08 FINDINGS: 1.There are no signs of small or large b owel inflammation. Specifically, there is no bowel wall or mucosal fold thickening or edema, mucosal hyperenhancement, or perienteric or pericolonic edema or vasa recta engorgement. There is no evidence of sma ll or large bowel obstruction. No mass is see n. 2.The stomach and appendix are normal. 3.The liver, spleen, pancreas, gallbladd er, bile ducts, and adrenals are normal. 4.The kidneys and urinary bladder are no rmal. 5.The uterus and ovaries are normal. Tra ce free fluid in the pelvic cul-de-sac is in the normal physiologic range. 6.There is no vascular abnormality. 7.No lymphadenopathy is seen. 8.No marrow abnormality is seen. IMPRESSION: No evidence of small bowel inflammation . [facility]-[id number] Performing Organization Address City/State/Zipcode Phone Number [facility] [address] [place] [address] Sedimentation rate (02/11/2019 6:00 AM CDT) Pathologist Sig nature Sedimentation rate 8 0 - 20 mm/hr [facility] Specimen Blood Performing Organization Address City/[facility]/Zipcode Phone Number [facility] DEPARTMENT OF PATHOLOGY AND [address] [place], [place] [address] GENOMIC MEDICINE [facility] [address] [place] [address] CBC with platelet and differential (02/11/2019 6:00 AM CDT)Only the most recent of4 resultswithin the time period is included. Pathologist [facility] WBC 8.36 4.50 - 11.00 [facility] k/uL HOSPITAL RBC 3.86 (L) 4.20 - 5.50 [facility] m/uL [facility] HGB 11.2 (L) 12.0 - 16.0 [facility] g/dL [facility] HCT 35.7 (L) 37.0 - 47.0 % [facility] MCV 92.5 82.0 - 100.0 [facility] MCH 29.0 27.0 - 34.0 pg [facility] MCHC 31.4 31.0 - 37.0 [facility] gdL [facility] RDW - SD 41.1 37.0 - 55.0 fL [facility] MPV 10.6 8.8 - 13.2 fL [facility] Platelet count 247 150 - 400 k/uL [facility] Nucleated RBC 0.00 /100 WBC [facility] Neutrophils 66.5 39.0 - 69.0 % [facility] Lymphocytes 21.3 (L) 25.0 - 45.0 % [facility] Monocytes 8.5 0.0 - 10.0 % [facility] Eosinophils 3.0 0.0 - 5.0 % [facility] Basophils 0.5 0.0 - 1.0 % [facility] Immature granulocytes 0.2Comment: 0.0 - 1.0 % [facility] "Immature HOSPITAL granulocytes" (promyelocytes , myelocytes, metamyelocytes ) Specimen Blood Performing Organization Address City/[facility] Phone Number [facility] DEPARTMENT OF PATHOLOGY AND [address] [place] [address] [address] Estimated GFR (02/11/2019 4:00 AM CDT)Only the most recent of4 resultswithin the time period is included. Pathologist [facility] Estimated GFR >=90 mL/min/1.73 [facility] Comment: m2 HOSPITAL Catergory Units Interpretation G1 >=90 Normal or high G2 60-89 Mildly decreased G3a 45-59 Mildly to moderately decreas ed G3b 30-44 Moderately to severely decre ased G4 15-29 Severely decreased G5 <15 Kidney failure The eGFR was calculated using the Chronic Kidney Disea se Epidemiology Collaboration (CKD-EPI) equation. Interpretation is based on recommendations of the National Kidney Foundation-Kidney Disease Outcomes Baljinder lity Initiative (NKF-KDOQI) published in 2014. Specimen Plasma specimen Performing Organization Address City/[facility] Phone Number [facility] DEPARTMENT OF PATHOLOGY AND [address] [place] [address] [phone] [address] C-reactive protein (02/11/2019 4:00 AM CDT) [facility] CRP 0.49 0.00 - 0.50 mg/dL [facility] Specimen Plasma specimen Performing Organization Address [facility] Phone Number [facility] DEPARTMENT OF PATHOLOGY AND [address] [place], [place] [address] [address] [address] Comprehensive metabolic panel (02/11/2019 4:00 AM CDT)Only the most recent of4 resultswithin the time period is included. [facility] Sodium 143 135 - 148 [facility] mEq/L [facility] Potassium 3.6 3.5 - 5.0 [facility] mEq/L [facility] Chloride 106 98 - 112 mEq/L [facility] CO2 23 (L) 24 - 31 mEq/L [facility] Anion gap 14@ANIO 7 - 15 mEq/L [facility] BUN 10 6 - 20 mg/dL [facility] Creatinine 0.81 0.50 - 0.90 [facility] mg/dL HOSPITAL Glucose 100 (H) 65 - 99 mg/dL [facility] Calcium 8.3 8.3 - 10.2 [facility] mg/dL [facility] Protein 6.5 6.3 - 8.3 g/dL [facility] Comment: HOSPITAL Lytweyh1108.6-7.0 g/dL 1 jowu0918.4-7.6 g/dL 7 months-1nkis632.1-7.3 g/dL 1-2 utcbk385.6-7.5 g/dL >3 bicaf743.0-8.0 g/dL 18-0186943.3-8.3 g/dL Albumin 3.2 (L) 3.5 - 5.0 g/dL [facility] A/G ratio 1.0 0.7 - 3.8 [facility] Alkaline phosphatase 49 35 - 104 U/L [facility] AST 11 10 - 35 U/L [facility] ALT 15 5 - 50 U/L [facility] Total bilirubin <0.2 0.0 - 1.2 [facility] mg/dL HOSPITAL Specimen Plasma specimen Performing Organization Address City/[facility] Phone Number [facility] DEPARTMENT OF PATHOLOGY AND [address] [place] [phone] Strep screen culture (02/10/2019 10:40 PM CDT) Strep screen No beta hemolytic Streptococci isolated [facility] culture isolate Comment: HOSPITAL Specimen Information Specimen Source: Throat Specimen Site: Not otherwise specified Specimen Throat - Not otherwise specified Performing Organization Address City/[facility] Phone Number [facility] DEPARTMENT OF PATHOLOGY AND [address] [place] [phone] [place] Hepatobiliary (HIDA Scan) (02/10/2019 7:43 PM CDT) Specimen Narrative Performed At Procedure: NM HEPATOBILIARY (HIDA SCAN ) [facility] Clinical History: Nausea vomiting Technique: The patient was injected with 4 mCi of [id number] in intravenously, followed by dynamic imaging of the abdomen in the ante rior projection for 1 hour. Findings: There is normal uptake of tracer by the liver with nor mal excretion into the biliary tree. Tracer proceeds normally into the ga llbladder and small bowel. Impression: No evidence of acute cholecystitis or co mmon bile duct obstruction. [facility]-[id number] Procedure Note Interface, Radiology Results Incoming - 02/10/2019 7:48 PM CDT Procedure: NM HEPATOBILIARY (HIDA SCAN) Clinical History: Nausea vomiting Technique: The patient was injected with 4 mCi of T [id number] intravenously, followed by dynamic imaging of the abdomen in the anterior projection for 1 hour. Findings: There is normal uptake of tracer by the liver with normal excretion into the biliary tree. Tracer proceeds normally into the gallbladder and small bowel. Impression: No evidence of acute cholecystitis or co mmon bile duct obstruction. [facility]-[id number] Performing Organization Address [facility] [place] [facility] [phone] [place] [address] US Gallbladder (02/10/2019 3:00 PM CDT) Specimen Narrative Performed At EXAMINATION: US GALLBLADDER [facility] CLINICAL HISTORY: Abd pain unspecifi ed COMPARISON: None. FINDINGS: Gallbladder: The gallbladder is without evidence of ca lculi. The gallbladder wall is not thickened and th ere is no pericholecystic fluid. CBD: 4 mm , within normal limits. Portal vein: The portal vein demonstrates normal hepat opetal flow. The portal vein measures 1.2 cm, within norm al limits. IMPRESSION: Negative gallbladder ultrasound examinat ion. [facility]-[id number] Procedure Note Interface, Radiology Results Incoming - 02/10/2019 3:06 PM CDT EXAMINATION: US GALLBLADDER CLINICAL HISTORY: Abd pain unspecified COMPARISON: None. FINDINGS: Gallbladder: The gallbladder is without evidence of calculi. The gallbladder wall is not thickened and there is no pericholecystic fluid. CBD: 4 mm , within normal limits. Portal vein: The portal vein demonstrate s normal hepatopetal flow. The portal vein measures 1.2 cm, within normal limits. IMPRESSION: Negative gallbladder ultrasound examinat ion. [facility]-[id number] Performing Organization Address [facility] [place] Phone Number [facility] [address] [place] [address] Lipase level (02/10/2019 10:34 AM CDT) Pathologist Sig nature Lipase 18 13 - 60 U/L [facility] Specimen Plasma specimen Performing Organization Address City/State/Zipcode Phone Number [facility] DEPARTMENT OF PATHOLOGY AND [address] [place], [place] [address] GENOMIC MEDICINE [facility] [address] [place] [address] CT Abdomen Pelvis W Contrast (02/08/2019 12:31 PM CDT) Specimen Narrative Performed At EXAMINATION: CT ABDOMEN PELVIS W CONTR AST HM [facility] CLINICAL HISTORY: 23 yearsFemale Nausea vomiting TECHNIQUE: Multiple axial images of the abdomen and pe lvis were obtained following intravenous administration of iodinated cont rast. Sagittal and coronal computerized reformatted images were also obta ined. CT imaging was performed with iterative reconstruction techniques and/or automated exposure co ntrol to reduce radiation dose. COMPARISON: None. IMPRESSION: LUNG BASES: The lung bases are free of acute disease . ABDOMEN: Liver: The liver is normal. No focal mas s. Gallbladder/Biliary: The gallbladder is normal. There is no evidence of intra or extrahepatic biliary ductal dil atation. Spleen: The spleen is not enlarged. Pancreas: The pancreas is unremarkable. Adrenal Glands: The adrenal glands are u nremarkable. Kidneys: The kidneys are unremarkable. No mass, hydron ephrosis or calculi. Vascular: The abdominal aorta is nonaneu rysmal. Nodes: Nonspecific mildly prominent small bowel mesent jeffry lymph nodes measure up to 12 x 7 mm. Lymph nodes are likely reactive in etiology.. Bowel: No bowel obstruction or inflammatory changes. T he appendix appears normal. Ascites/fluid collections: No ascites or fluid collections. PELVIS: No mass, fluid collection or significant adenopathy. MUSCULOSKELETAL: No suspicious osseous lesions. SUMMARY: 1.No acute abnormalities. Nonspecific mesenteric lymph nodes measuring up to 12 x 7 mm likely reactive in etiol ogy. [id number] Procedure Note Hm Interface, Radiology Results Incoming - 02/08/2019 1:08 PM CDT EXAMINATION: CT ABDOMEN PELVIS W CONTRAST CLINICAL HISTORY: 23 yearsFemale Nausea vomiting TECHNIQUE: Multiple axial images of the abdomen and pelvis were obtained following intravenous administration of iodinated contrast. Sagittal and coronal computerized reformatted images were also obtained. CT imaging was performed with iterative reconstruction techniques and/or automat ed exposure control to reduce radiation dose. COMPARISON: None. IMPRESSION: LUNG BASES: The lung bases are free of acute disease . ABDOMEN: Liver: The liver is normal. No focal mas s. Gallbladder/Biliary: The gallbladder is normal. There is no evidence of intra or extrahepatic biliary ductal dilatation. Spleen: The spleen is not enlarged. Pancreas: The pancreas is unremarkable. Adrenal Glands: The adrenal glands are u nremarkable. Kidneys: The kidneys are unremarkable. N o mass, hydronephrosis or calculi. Vascular: The abdominal aorta is nonaneu rysmal. Nodes: Nonspecific mildly prominent smal l bowel mesenteric lymph nodes measure up to 12 x 7 mm. Lymph nodes are likely reactive in etiology.. Bowel: No bowel obstruction or inflammat ory changes. The appendix appears normal. Ascites/fluid collections: No ascites or fluid collections. PELVIS: No mass, fluid collection or significant adenopathy. MUSCULOSKELETAL: No suspicious osseous lesions. SUMMARY: 1.No acute abnormalities. Nonspecific me senteric lymph nodes measuring up to 12 x 7 mm likely reactive in etiology. [facility]-[id number] Performing Organization Address City/[facility] Phone Number [employer] [address] [place] [address] Hemoglobin & hematocrit (02/08/2019 6:30 AM CDT)Only the most recent of2 resultswithin the time period is included. Pathologist Sig nature HGB 11.7 (L) 12.0 - 16.0 g/dL [facility] HCT 37.5 37.0 - 47.0 % [facility] Specimen Blood Performing Organization Address City/[facility] Phone Number [facility] DEPARTMENT OF PATHOLOGY AND [address] [place] [phone] GENOMIC MEDICINE [address] [address] Urine drugs of abuse screen (02/07/2019 9:00 PM CDT) Amphetamine screen, Negative HOME urine [facility] Barbiturate screen, Negative HOME urine [facility] Benzodiazepine Negative HOME screen, urine [facility] Cocaine screen, urine Negative [facility] Methadone metabolite Negative HOME (EDDP), urine [facility] Opiates screen, urine Negative [facility] Oxycodone screen, Negative HOME urine [facility] Phencyclidine screen, Negative [facility] Tricyclic screen, Negative [facility] Cannabinoid screen, Negative HOME urine Comment: [place] Drug screen minimum concentration of detectability [facility] Amphetamines 1000 ng/mL Barbiturates 200 ng/mL Benzodiazepines 300 ng/mL Cocaine 300 ng/mL Methadone 300 ng/mL Opiates 300 ng/mL Oxycodone 300 ng/mL Phencyclidine 25 ng/mL Cannabinoids 50 ng/mL Tricyclics 1000 ng/mL Results are from screening tests and should only be used for medical evaluation. Drug testing for legal purposes requires definitive (or confirmatory) testing methods, which are available upon request. Contact the laboratory if definitive testing is requir ed. Specimen Urine Performing Organization Address City/[facility]/Zipcode Phone Number [facility] DEPARTMENT OF PATHOLOGY AND [address] [place], [place] [address] [address] [address] Urinalysis (02/07/2019 6:53 PM CDT) Pathologist Sig nature Glucose, UA Negative Negative [facility] Bilirubin, UA Negative Negative [facility] Ketones, UA Negative Negative [facility] Specific gravity, UA 1.020 1.001 - 1.[address] [facility] Blood, UA Negative Negative [facility] pH, UA 7.5 5.0 - 8.[address] [facility] Protein, UA Negative Negative [facility] Urobilinogen, UA <2.0 <2.[address] [facility] Nitrite, UA Negative Negative [facility] Leukocyte esterase, Negative Negative [facility] Color, UA Yellow [facility] Appearance, UA Clear [facility] Specimen Urine Performing Organization Address City/[facility]/Zipcode Phone Number DEPARTMENT OF PATHOLOGY AND [address] [place], [place] [address] [facility] [address] [place] [address] EMERGENCY [facility] hCG qualitative, urine screen (02/07/2019 6:53 PM CDT) hCG qualitative, Negative [facility] urine Comment: [place] Sensitivity of HCG test: 25 mIU/mL [facility] Negative test results in patients suspected CENTER to be should be retested with a sample obtained 48-72 hours later, or by performing a quantitative assay. Specimen Urine Performing Organization Address City/State/Zipcode Phone Number DEPARTMENT OF PATHOLOGY AND [address] [place], [place] [address] GENOMIC MEDICINE, [place] [facility] [place] [address] [place] [address] EM[facility]ARE CENTER after 10/19/2018 Advance Directives For more information, please contact: [phone] Type Date Recorded Patient Cotton Stomper Explanati on Advance Directives, Living Will and Medical Power of Admitting Counselor
--- OUTSIDE RECORDS SUMMARY | 2019-10-21 02:03 | XMS REPORT | Clinical Summary ---
:1995 Author Organization [facility] Address [address] [place] [address] Care Team Providers Name Role Phone Unavailable Primary Care Provider Unavailable Allergies No Known Allergies Medications Medication Sig Dispensed Refills Start Date End Date Status gabapentin Take 2 capsules 60 capsule 0 01/14/2019 01/24/2019 (NEURONTIN) 100 MG (200 mg total) capsule by mouth 3 (three) times daily for 10 days. HYDROcodone-acetamin Take 1 tablet 30 tablet 0 01/14/201901/13 ophen (NORCO 5-325) by mouth every 5-325 mg per tablet 6 (six) hours as needed for Pain for up to 10 days. Max Daily Amount: 4 tablets omeprazole Take 1 capsule 120 capsule 0 01/14/2019 03/15/2019 (PRILOSEC) 40 MG (40 mg total) capsule by mouth 2 (two) times daily for 60 days. sucralfate Take 1 tablet 60 tablet 0 01/14/2019 01/29/2019 Exp ired (CARAFATE) 1 gram (1 g total) by tablet mouth 4 (four) times daily for 15 days. Lactobacillus Take 1 tablet 60 tablet 0 01/16/2019 02/15/2019 acidoph-L.bulgar by mouth 2 (FLORANEX) 1 million (two) times cell Tab per tablet daily for 30 days. ondansetron (ZOFRAN) Take 1 tablet 20 tablet 0 01/16/201912/2018 4 MG tablet (4 mg total) by mouth 3 (three) times daily as needed for Nausea for up to 5 days. Active Problems Problem Noted Date Hematemesis with nausea 01/13/2019 Generalized abdominal pain 01/13/2019 Tachycardia 01/13/2019 Hematemesis 01/13/2019 Encounters Date Type Specialty Care Team Description 01/13/2019 Anesthesia Event Gastroenterology Camacho Alexander MD 01/13/2019 Surgery Gastroenterology Moon Alvarez MD ENDOSCOPY,BIOPS Y 01/13/2019 - Hospital Encounter Cardiology Varsha Blake ed abdominal pain (Primary Dx); 01/16/2019 Kinga Boone, Hematemesis with nausea; Tachycardia; Carole Newell, Esophagitis; Ayana-Alvarez tear Mariposa Austin MD 01/13/2019 Travel 01/13/2019 Abstract Internal Medicine Varsha Blake MD after 10/19/2018 Family History Medical History Relation Name Comments Nephrolithiasis Father Hypertension Maternal Grandmother No Known Problem Mother Relation Name Status Comments Father Alive Maternal Grandmother Mother Alive Sister Alive Social History Tobacco Use Types Packs/Day Years Used Date Never Smoker Smokeless Tobacco: Never Used Alcohol Use Drinks/Week oz/Week Comments Yes social - last 2 weeks ago Sex Assigned at Date Recorded Not on file Job Start Date Occupation Industry Not on file Not on file Not on file Travel History Travel Start Travel End No recent travel history available. Last Filed Vital Signs Vital Sign Reading Time Taken Blood Pressure 109/62 01/16/2019 7:24 AM CDT Pulse 74 01/16/2019 9:30 AM CDT Temperature 36.6 C (97.9 F) 01/16/2019 7:24 AM CDT Respiratory Rate 18 01/16/2019 9:30 AM CDT Oxygen Saturation 99% 01/16/2019 9:30 AM CDT Inhaled Oxygen Concentration - - Weight 80.1 kg (176 lb 8 oz) 01/15/2019 7:33 A M CDT Height 172.7 cm (5' 7.99") 01/13/2019 3:56 PM CDT Body Mass Index 26.84 01/15/2019 7:33 AM CDT Plan of Treatment Not on file Procedures Procedure Name Priority Date/Time Associated Diagnosis Comme nts REPORT OF PROCEDURE 01/20/2019 10:42 - ENDOSCOPY SCAN AM CDT RHYTHM STRIP - SCAN 01/20/2019 10:42 AM CDT (CELLAVISION MANUAL Routine 01/16/2019 6:10 Resu lts for this DIFF) AM CDT procedure are i n the results section. CBC W/PLT COUNT & Routine 01/16/2019 6:10 Result s for this AUTO DIFFERENTIAL AM CDT procedure are in the results section. MAGNESIUM Routine 01/16/2019 6:10 Results for this AM CDT procedure are i n the results section. BASIC METABOLIC Routine 01/16/2019 6:10 Results for this PANEL (7) AM CDT procedure are i n the results section. CBC W/PLT COUNT & Routine 01/16/2019 6:10 Result s for this AUTO DIFFERENTIAL AM CDT procedure are in the results section. XR ABDOMEN / KUB 1 STAT 01/15/2019 12:40 Resul ts for this VIEW PM CDT procedure are i n the results section. CBC W/PLT COUNT & Routine 01/15/2019 5:08 Result s for this AUTO DIFFERENTIAL AM CDT procedure are in the results section. MAGNESIUM Routine 01/15/2019 5:08 Results for this AM CDT procedure are i n the results section. BASIC METABOLIC Routine 01/15/2019 5:08 Results for this PANEL (7) AM CDT procedure are i n the results section. CBC W/PLT COUNT & Routine 01/15/2019 5:08 Result s for this AUTO DIFFERENTIAL AM CDT procedure are in the results section. PHOSPHORUS Routine 01/15/2019 5:08 Results for this AM CDT procedure are i n the results section. RAPID DRUG SCREEN, Routine 01/14/2019 4:37 Resul ts for this URINE PM CDT procedure are i n the results section. SCREEN, Routine 01/14/2019 4:37 Result s for this URINE PM CDT procedure are i n the results section. PHOSPHORUS Routine 01/14/2019 5:18 Results for this AM CDT procedure are i n the results section. MAGNESIUM Routine 01/14/2019 5:18 Results for this AM CDT procedure are i n the results section. BASIC METABOLIC Routine 01/14/2019 5:18 Results for this PANEL (7) AM CDT procedure are i n the results section. REPORT OF PROCEDURE 01/13/2019 5:58 - ENDOSCOPY URL PM CDT TISSUE EXAM AP Routine 01/13/2019 5:46 Results for this PM CDT procedure are i n the results section. UPPER 01/13/2019 4:00 Gastrointestinal ENDOSCOPY,BIOPSY PM CDT hemorrhage, unspecified gastrointestinal hemorrhage type CBC W/PLT COUNT & Routine 01/13/2019 10:55 Result s for this AUTO DIFFERENTIAL AM CDT procedure are in the results section. LIPASE Routine 01/13/2019 10:55 Results for this AM CDT procedure are i n the results section. CBC W/PLT COUNT & Routine 01/13/2019 10:55 Result s for this AUTO DIFFERENTIAL AM CDT procedure are in the results section. PHOSPHORUS Routine 01/13/2019 10:55 Results for this AM CDT procedure are i n the results section. MAGNESIUM Routine 01/13/2019 10:55 Results for this AM CDT procedure are i n the results section. BASIC METABOLIC Routine 01/13/2019 10:55 Results for this PANEL (7) AM CDT procedure are i n the results section. after 10/19/2018 Results EKG-SCANNED (01/20/2019 10:42 AM CDT) Narrative Performed At This result has an attachment that is no t available. RHYTHM STRIP - SCAN (01/20/2019 10:42 AM CDT) Narrative Performed At This result has an attachment that is no t available. Manual Differential (01/16/2019 6:10 AM CDT) % Neutros 56 % [facility] % Lymphs 28 % [facility] % Monos 7 % [facility] % Eos 6 % [facility] % Baso 2 % [facility] % Atypical Lymphs 1 (H) 0 - 0 % [facility] # Neutros 2.35 1.56 - 6.13 K/ul [facility] # Lymphs 1.18 1.18 - 3.74 K/ul [facility] H [facility] # Monos 0.29 0.24 - 0.36 K/uL [facility] H [facility] # Eos 0.25 0.04 - 0.36 K/uL [facility] # Baso 0.08 0.01 - 0.08 K/uL [facility] H [facility] # Atypical Lymphs 0.04 (H) 0.00 - 0.00 K/uL [facility] Total Counted 100 [facility] RBC Morphology Normal [facility] WBC Morphology Normal [facility] Platelet Morphology Normal [facility] Artifact Present [facility] Platelet Conc Adequate [facility] Specimen Blood Narrative Performed At Received comment: [facility] User comments: Slide comments: Performing Organization Address City/State/Zipcode Phone Number [facility] [address] [place] [address] CENTER CBC with platelet count + automated diff (01/16/2019 6:10 AM CDT)Only the most recent of3 resultswithin the time period is included. WBC 4.2 3.5 - 10.5 K/L [facility] RBC 4.09 3.93 - 5.22 M/L [facility] Hemoglobin 11.6 11.2 - 15.7 GM/DL [facility] Hematocrit 38.2 34.1 - 44.9 % [facility] MCV 93.4 79.4 - 94.8 fL [facility] MCH 28.4 25.6 - 32.2 pg [facility] MCHC 30.4 (L) 32.2 - 35.5 GM/DL [facility] RDW 12.1 11.7 - 14.4 % [facility] Platelets 253 150 - 450 K/CU MM [facility] MPV 9.8 9.4 - 12.3 fL [facility] nRBC 0 0 - 0 /100 WBC [facility] Specimen Blood Performing Organization Address City/State/Zipcode Phone Number [address] [address] CENTER Magnesium (01/16/2019 6:10 AM CDT)Only the most recent of4 resultswithin the time period is included. Magnesium 1.9 1.6 - 2.6 mg/dL [facility] Specimen Blood Performing Organization Address City/[facility] Centercode Phone Number [facility] [address] [place] [address] [place] Basic metabolic panel (01/16/2019 6:10 AM CDT)Only the most recent of4 results within the time period is included. Sodium 139 136 - 145 meq/L [facility] Potassium 3.8 3.5 - 5.1 meq/L [facility] Chloride 109 (H) 98 - 107 meq/L [facility] CO2 25 22 - 29 meq/L [facility] BUN 4 (L) 7 - 21 mg/dL [facility] Creatinine 0.77 0.57 - 1.25 mg/dL [facility] Glucose 85 70 - 105 mg/dL [facility] Calcium 8.5 8.4 - 10.2 mg/dL [facility] EGFR 95Comment: ESTIMATED GFR IS mL/min/1.73 sq m [facility] NOT ACCURATE CREATININE [facility] CLEARANCE IN PREDICTING GLOMERULAR FILTRATION RATE. ESTIMATED GFR IS NOT APPLICABLE FOR DIALYSIS PATIENTS. Specimen Blood Performing Organization Address City/[facility]/Zipcode Phone Number [address] [address] [place] XR abdomen / KUB 1 view (01/15/2019 12:40 PM CDT) Specimen Narrative Performed At FINAL REPORT GE RIS CLINICAL HISTORY: obstruction TECHNIQUE: Supine abdomen COMPARISON: None IMPRESSION: The bowel gas pattern is nonspecific. Fr ee air and air-fluid levels are not definitively seen, but also edith ot be excluded on the supine view. Signed: Rea Beaulieu MD Report Verified Date/Time:01/15/2019 12:53:50 Reading Location: [facility] [place] y Reading Room Procedure Note Interface, External Ris In - 01/15/2019 12:56 PM CDT FINAL REPORT CLINICAL HISTORY: obstruction TECHNIQUE: Supine abdomen COMPARISON: None IMPRESSION: The bowel gas pattern is nonspecific. Fr ee air and air-fluid levels are not definitively seen, but also edith ot be excluded on the supine view. Signed: Rea Beaulieu MD Report Verified Date/Time: 01/15/2019 1 2:53:50 Reading Location: [facility] [place] y Reading Room Performing Organization Address City/State/Zipcode Phone Number GE RIS Phosphorus (01/15/2019 5:08 AM CDT)Only the most recent of3 resultswithin the time period is included. Phosphorus 3.1 2.3 - 4.7 mg/dL [facility] Specimen Blood Performing Organization Address City/[facility]/Zipcode Phone Number [address] [address] CENTER Rapid drug screen, urine (01/14/2019 4:37 PM CDT) Barbiturate Screen Negative Negative [facility] Benzodiazepine Screen Negative Negative [facility] Cocaine (Metab.) Screen Negative Negative [facility] Methadone Screen Negative Negative [facility] Opiate Screen Positive (A) Negative [facility] Cannabinoid Screen Negative Negative [facility] Amph/Methamph Screen Negative Negative [facility] Phencyclidine Screen Negative Negative [facility] Specimen Urine Narrative Performed At Comment for Urine pH: [facility] Per health technical writer's recommendations, acceptable pH range for urine drug screen testing is 3 to 11. pH testing not performed on this urine sample. While physiologically incompatible, the effect on the results of testing urine outside of pH 3-11 is unknown. [facility] CONC. Cocaine 300 ng/mL Kfwztpginos38 ng /mL Dtpkwujryijzqf910 ng/mL Barbiturate 200 ng/m L Jsqcwmxfuqyxh01 ng/m L Dafmmp552 ng/mL Methadone 300 ng /mL Amphetamine/ 1000 ng/mL Methamphetamine This assay provides an unconfirmed qualitative test result for the clinical management of patients in emergency situations. Chain of custody not maintained. Some pzdq-onm-pznltsb medications, as well as adulterants, may cause inaccurate results. Clinical correlation should be applied. A more comprehensive drug screen or confirmation of a detected drug may be performed upon request. Performing Organization Address City/State/[place] [address] CENTER Screen, urine (01/14/2019 4:37 PM CDT) Preg Test, Ur Negative [facility] Specimen Urine Performing Organization Address City/[facility]/Zipcode Phone Number [address] [address] CENTER REPORT OF PROCEDURE - ENDOSCOPY URL (01/13/2019 5:58 PM CDT) Narrative Performed At This result has an attachment that is no t available. Tissue Exam (01/13/2019 5:46 PM CDT) Case Report Surgical Pathology Report Case: [id number] [facility] Authorizing Provider:Moon Overton MDCollected: 01/13/[address] [place] [address] Ordering Location: [address] Received:01/14/2019 1144 Service Pathologist: Brad Preciado MD Specimen:Biopsy, Gas tric, R/O H.Pylori DIAGNOSIS A. STOMACH, RANDOM BIOPSIES: [facility] - MILD CHRONIC INACTIVE GASTRITIS [facility] - NEGATIVE FOR HELICOBACTER PYLORI ORGANISMS B Y WARTHIN STARRY STAIN - NEGATIVE FOR INTESTINAL METAPLASIA, DYSPLASI A, MALIGNANCY Signing Pathologist Direct Phone Line: CPT Code(s) [address] [facility] [address] [facility] SPECIMEN SOURCE A. Gastric biopsy, rule out H. C [facility] pylori [facility] GROSS DESCRIPTION The specimen is received in one part labeled with the patient's information as [id number] which corresponds to the accompanying requisition slip. [facility] A. Received in formalin labe led "gastric biopsy, r/o H.pylori" are two fragments of hathaway-pink to hathaway-white soft tissue measuring 0.2 x 0.1 x 0.1 cm in aggregate. They are submitted in toto after filtration in cassette A1. SC/pl MICROSCOPIC DESCRIPTION Performed. [facility] SPECIAL STUDIES The interpretation of this c ase included the use of immunohistochemistry or special stains. [facility] Control Slides Examined: In -house known positive controls were evaluated along with the test tissue. These control slides run alongside of the patients sample show appropriate staining. Internal posit sonia and negative controls when available are boo [place]udson Immunohistochemistry techneduardo fox testing was performed at [facility], Pathology Laboratory where it was developed and its performance characteristics were determined. It has not be en cleared or approved by [facility] U.S. Food and Drug Administration. The FDA has determined that such clearance or approval is not necessary. The test is used for clinical purposes. It should not be regarde d as investigational or for research. This laboratory is certified under the Clinical Laboratory Improvement Amendments of 1988 (CLIA-88) as qualified to perform high complexity clinical laboratory testing. Specimen Tissue Performing Organization Address City/State/Zipcode Phone Number [facility] [address] [place] [address] CENTER Lipase (01/13/2019 10:55 AM CDT) Lipase 9 8 - 78 U/L [facility] Specimen Blood Performing Organization Address City/State/Zipcode Phone Number [facility] [address] [place] [address] CENTER after 10/19/2018 Insurance Payer Benefit Plan / Subscriber ID Type Phone Address Group BLUE CROSS/BLUE BCBS PPO POS EPO xxxxxxxxxxxx PPO [phone] [address] [place] [address] Advance Directives For more information, please contact:[facility] [place], [place] [phone] Code Status Date Activated Date Inactivated Comments Full Code 01/13/2019 9:10 AM 01/16/2019 2:53 PM This code status was determined by: Patient
--- OUTSIDE RECORDS SUMMARY | 2019-10-21 02:05 | XMS REPORT | Continuity of Care Document ---
:1995 Author Organization [facility] t Address [address] [place] [address] Care Team Providers Name Role Phone Asked, Pcp Primary Care Physician Unavailable Cristela TRUONG Attending Clinician Katherin Gonzalez MD Attending Clinician CONSUELO BONDS Attending Clinician Unavailable Consuelo Bonds MD Attending Clinician Claudia Newell MD Attending Clinician Enedina TRUONG Attending Clinician Ron Alexander MD Attending Clinician Michelle Alvarez MD Attending Clinician ENEDINA Admitting Clinician Unavailable Payers Payer Name Policy Type Policy Number Effective Date Expiration Date S amanuel BCBSBCBS CHOICE xxxxxxxxxxxx 2018 [place] PPO/FEDERAL EMPL 00:00:00 [place] t PPOxxxxxxxxxxxx2018-PresentP PO BLUE CROSS/BLUE xxxxxxxxxxxx [facility] POS EPO CHOICExxxxxxxxxx [phone] [address], [place] [address] Problems Condition Condition Condition Status Onset Resolution Last Treating Co mments Source Name Details Category Date Date Treatment Clinician Date Generalize Generalize Disease Active 2018-[address] [facility] 0[facility] abdominal abdominal 00:00: Medi marce pain pain 00 Center Tachycardi Tachycardi Disease Active 2018-[address] [facility] Hematemesi Hematemesi Disease Active 2018-[address] [facility] 0[facility]01 [facility] History of Past Illness Condition Condition Condition Status Onset Resolution Last Treating Co mments Source Name Details Category Date Date Treatment Clinician Date Intractabl Intractabl Disease Resolve 2018-042019-02-12 2019-02-12 [place] e vomiting e vomiting d 0-26 00:00:00 14:15:15 [facility] 00:00: st 00 Allergies, Adverse Reactions, Alerts Allergy Allergy Status Severity Reaction(s) Onset Inactive Treating Comm ents Source Name Type Date Date Clinician Haloperi Propensi Active Hallucinatio 2018-04 [place] dol ty to ns 0-26 [facility] adverse 00:00: st reaction 00 s to drug Family History Family Member Diagnosis Comments Start Date Stop Date Source Natural father Nephrolithiasis [facility] Maternal grandmother Hypertension [facility] Maternal grandmother GERD [place] Natural mother No Known Problem [facility] Other Colon cancer [place] Meth odist Social History Social Habit Start Date Stop Date Quantity Comments Source Sex Assigned At [place] M ethodist Alcohol intake 2019-02-11 2019-02-11 Current drinker [place] [facility] 00:00:00 00:00:00 of alcohol (finding) History [facility] 2019-02-09 2019-02-09 2 [place] [facility] Alcohol Frequency 00:00:00 00:00:00 History SDNE 2019-02-09 2019-02-09 1 [place] [facility] Alcohol Std Drinks 00:00:00 00:00:00 History SDNE 2019-02-09 2019-02-09 1 [place] [facility] Alcohol Binge 00:00:00 00:00:00 Alcohol Comment 2019-02-09 2019-02-09 Holidays only, [place] [facility] 00:00:00 00:00:00 1-2 drinks Smoking Status Start Date Stop Date Source Never smoker [place] Method[facility] t Medications Ordered Filled Start Stop Current Ordering Indication Dosage Frequency Signature Comments Components Source Medication Medication Date Date Medication? Clinician (SIG) Name Name pantoprazol 2018-04- No 40mg QD Take 40 mg [facility] e 0-31 10-31 by mouth [facility] (PROTONIX) 16:36: 00:[address] 40 MG EC 40 :00 tablet ondansetron 2018-04- No 4mg Q8H Take 4 mg [facility] (ZOFRAN) 4 0-31 10-31 by mouth Meth mazin MG tablet 16:36: 00:[address] 40 :00 (eight) hours as needed for nausea or vomiting. gabapentin 2018-04- No 100mg Q.[id number] Take 100 [facility] (NEURONTIN) 0-31 10-31 [id number] mg by Methodi 100 mg 16:36: 00:[address] capsule 40 :00 (three) times a day. traMADol 2018-04 Yes acute pain 50mg Q6H Take 50 mg [facility] (ULTRAM) 50 0-31 by mouth Meth mazin mg tablet 16:36: every 6 st 39 (six) hours as needed for moderate pain .Acute Pain. sucralfate 2018-04 Yes 1g Q.25D Take 1 g [place] (CARAFATE) 0-31 by mouth 4 Met hodi 1 gram 16:36: (four) st tablet 39 times a day. pantoprazol 2018-04 Yes 40mg Q.5D Take 1 [place] 0-31 tablet (40 [facility] (PROTONIX) 00:00: mg total) st 40 MG EC 00 by mouth 2 tablet (two) times a day. gabapentin 2018-04- No 300mg Q.[id number] Take 1 [facility] (NEURONTIN) 0-31 10-30 [id number] capsule Methodi 300 mg 00:00: 23:59 3D ([address] capsule 00 :00 total) by mouth 3 (three) times a day. dicyclomine 2018-04- No 20mg Q.25D Take 1 [place] (BENTYL) 20 0-31 10-30 tablet (20 M ethodi mg tablet 00:00: 23:59 mg total) st 00 :00 by mouth 4 (four) times a day. promethazin 2018-04- No 25mg Q6H Insert 1 [place] e 0-31 11-30 suppositor Methodi (PHENERGAN) 00:00: 23:59 y (25 mg s t 25 MG 00 :00 total) suppository into the rectum every 6 (six) hours as needed for nausea or vomiting for up to 30 days. ondansetron 2018-04- No 4mg Q8H Take 1 Chris ston ODT (ZOFRAN 0-31 11-14 tablet (4 [facility] ODT) 4 MG 00:00: 23:59 mg total) st disintegrat 00 :00 by mouth ing tablet every 8 (eight) hours as needed for nausea or vomiting for up to 14 days. phenol 2018-04- No 2{spray Q4H Apply 2 [place] (CHLORASEPT 0-07 } sprays to Me thodi IC) 1.4 % 00:00: 23:[address] aerosol,spr 00 :00 or throat ay every 4 (four) hours as needed (sore throat) for up to 7 days. Lactobacill 2018-04- No 1{tbl} Q.5D Take [address] us 0-04 11-03 tablet by [facility] - acidoph-L.b 00:00: 23:59 mouth 2 Me dical ulgar 00 :00 (two) Center (FLORANEX) times 1 million daily for cell Tab 30 days. per tablet ondansetron 2018-04- No 4mg Take [address] [facility] (ZOFRAN) 4 0-04 10-09 tablet (4 Justine es - MG tablet 00:00: 23:59 mg total) Me dical 00 :00 by mouth 3 Center (three) times daily as needed for Nausea for up to 5 days. omeprazole 2018-04- No 40mg Q.5D Take [address] (PRILOSEC) 0-02 12-01 capsule [facility] - 40 MG 00:00: 23:59 (40 mg Medical capsule 00 :00 total) by Center mouth 2 (two) times daily for 60 days. sucralfate 2018-04- No 1g Q.25D Take [address] (CARAFATE) 0-02 10-17 tablet (1 Justine es - 1 gram 00:00: 23:59 g total) Medica l tablet 00 :00 by mouth 4 Center (four) times daily for 15 days. gabapentin 2019-1 2019- No 200mg Q.[id number] Take [address] (NEURONTIN) 0-02 01-24 [id number] capsules [facility] - 100 MG 00:00: 23:59 3D (200 mg Medical capsule 00 :00 total) by Center mouth 3 (three) times daily for 10 days. HYDROcodone 2018-04- No 1{tbl} Take [address] -acetaminop 0-01-24 tablet by Maryann randle (NORCO 00:00: 23:59 mouth Medic al 5-325) 00 :00 every 6 Center 5-325 mg (six) per tablet hours as needed for Pain for up to 10 days. Max Daily Amount: 4 tablets Vital Signs Vital Name Observation Time Observation Value Comments Source Systolic blood 2019-02-12 11:22:58 108 mm[Hg] [place] [facility]ist pressure Diastolic blood 2019-02-12 11:22:58 71 mm[Hg] [place] [facility] pressure Heart rate 2019-02-12 11:22:58 63 /min [place] [facility] Body temperature 2019-02-12 11:22:58 35.78 Mel [facility] ton Taoist Respiratory rate 2019-02-12 11:22:58 18 /min [facility] Taoist Oxygen saturation in 2019-02-12 11:22:58 97 /min [facility] Arterial blood by Pulse oximetry Body height 2019-02-09 22:07:20 172.7 cm [place] Taoist Body weight 2019-02-07 17:57:00 70.308 kg [facility] BMI 2019-02-07 17:57:00 23.57 kg/m2 [facility] 2019-01-16 09:30:00 74 /min [facility] Respiratory rate 2019-01-16 09:30:00 18 /min [facility] Oxygen saturation in 2019-01-16 09:30:00 99 /min [facility] - Arterial blood by Medical Ce nter Pulse oximetry Systolic blood 2019-01-16 07:24:00 109 mm[Hg] [facility] Diastolic blood 2019-01-16 07:24:00 62 mm[Hg] [facility] S t [facility] Body temperature 2019-01-16 07:24:00 36.61 Mel [facility] Body weight Measured 2019-01-15 07:33:00 80.06 kg [facility] BMI 2019-01-15 07:33:00 26.84 kg/m2 [facility] Body height 2019-01-13 15:56:00 172.7 cm [facility] Procedures Procedure Date / Time Performing Clinician Source Performed MRI ABDOMEN W WO 2019-02-11 08:34:00 Len Navarro Met hodist CONTRAST Khodadad MRI PELVIS W WO CONTRAST 2019-02-11 08:34:00 Len Navarrou [place]on Taoist Khodadad HC COMPLETE BLD COUNT 2019-02-11 06:00:00 Tomy Malone W/AUTO DIFF SEDIMENTATION RATE 2019-02-11 06:00:00 Len Navarro ethodist Khodadad COMPREHENSIVE METABOLIC 2019-02-11 04:00:00 Tomy Malone PANEL C-REACTIVE PROTEIN 2019-02-11 04:00:00 Len Navarro ethodist Khodadad ESTIMATED GFR 2019-02-11 04:00:00 Emerson Gonzalez STREP SCREEN CULTURE 2019-02-10 22:40:00 Amadou Polanco [place] HEPATOBILIARY 2019-02-10 19:43:13 Len Navarro Met hodist Khodadad US GALLBLADDER 2019-02-10 15:00:00 Len Navarro Meth odist Khodadad LIPASE LEVEL 2019-02-10 10:34:00 Len Navarro Meth odist Khodadad HC COMPLETE BLD COUNT 2019-02-10 05:00:00 Tomy Malone W/AUTO DIFF COMPREHENSIVE METABOLIC 2019-02-10 04:00:00 Tomy Malone PANEL ESTIMATED GFR 2019-02-10 04:00:00 Emersno Gonzalez HC COMPLETE BLD COUNT 2019-02-09 06:30:00 Tomy Malone W/AUTO DIFF COMPREHENSIVE METABOLIC 2019-02-09 04:00:00 Tomy Malone Taoist PANEL ESTIMATED GFR 2019-02-09 04:00:[address] ABDOMEN PELVIS W 2019-02-08 12:31:15 Amadou Polanco CONTRAST Michelle HEMOGLOBIN & HEMATOCRIT 2019-02-08 06:30:00 Tomy Malone HEMOGLOBIN & HEMATOCRIT 2019-02-08 02:00:00 Tomy Malone URINE DRUGS OF ABUSE 2019-02-07 21:00:00 Amadou Polanco n Taoist SCREEN Michelle URINALYSIS 2019-02-07 18:53:00 Romero Archibald Met hodist HCG QUALITATIVE, URINE 2019-02-07 18:53:00 Romero Archibald Taoist SCREEN HC COMPLETE BLD COUNT 2019-02-07 18:04:00 Romero Archibald on Taoist W/AUTO DIFF COMPREHENSIVE METABOLIC 2019-02-07 18:04:00 Romero Archibald ston Taoist PANEL ESTIMATED GFR 2019-02-07 18:04:00 Romero Archibald Met hodesequiel REPORT OF PROCEDURE - 2019-01-20 10:42:18 Provider, [facility] ENDOSCOPY SCAN Scanning [facility] RHYTHM STRIP - SCAN 2019-01-20 10:42:08 Provider, Default [facility] BASIC METABOLIC PANEL 2019-01-16 06:10:00 Enedina [facility] (7) [facility] MAGNESIUM 2019-01-16 06:10:00 Mariposa Austin [facility] CBC W/PLT COUNT & AUTO 2019-01-16 06:10:00 Mariposa Austin [facility] S t [facility] DIFFERENTIAL [facility] (CELLAVISION MANUAL 2019-01-16 06:10:00 [place] [facility] - DIFF) [facility] XR ABDOMEN / KUB 1 VIEW 2019-01-15 12:40:00 Enedina [facility] PHOSPHORUS 2019-01-15 05:08:00 Carole Newell [facility] BASIC METABOLIC PANEL 2019-01-15 05:08:00 Enedina [facility] (7) [facility] MAGNESIUM 2019-01-15 05:08:00 Enedina [facility] CBC W/PLT COUNT & AUTO 2019-01-15 05:08:00 [facility] SCREEN, URINE 2019-01-14 16:37:00 Enedina [facility] RAPID DRUG SCREEN, URINE 2019-01-14 16:37:00 Enedina [facility] BASIC METABOLIC PANEL 2019-01-14 05:18:00 Carole Newell [facility] () [facility] MAGNESIUM 2019-01-14 05:18:00 Carole Newell [facility] PHOSPHORUS 2019-01-14 05:18:00 Carole Newell [facility] REPORT OF PROCEDURE - 2019-01-13 17:58:[address] [facility] ENDOSCOPY [facility] TISSUE EXAM 2019-01-13 17:46:00 Moon Alvarez [facility] UPPER ENDOSCOPY,BIOPSY 2019-01-13 16:00:00 Moon Alvarez C [facility] BASIC METABOLIC PANEL 2019-01-13 10:55:00 Carole Newell [place] [address]) [facility] MAGNESIUM 2019-01-13 10:55:00 Carole Newell [facility] PHOSPHORUS 2019-01-13 10:55:00 Carole Newell [facility] LIPASE 2019-01-13 10:55:00 Carole Newell [facility] CBC W/PLT COUNT & AUTO 2019-01-13 10:55:00 [facility] Plan of Care Planned Activity Planned Date Details Comments Source Future Scheduled 2019-11-14 INFLUENZA VACCINE [place] [facility] Test 00:00:00 [code = INFLUENZA VACCINE] Future Scheduled 2018 Screening for [facility] Me thodist Test 00:00:00 malignant neoplasm of cervix (procedure) [code = 757197019] Future Scheduled 2013 CHLAMYDIA SCREENING [place] [facility] Test 00:00:00 [code = CHLAMYDIA SCREENING] Results Test Description Test Time Test Comments Results Result Comments Source Rapid drug screen, urine 2019-06-07 07:05:00 Test Item Value Reference Range Interpretation Comme nts Barbiturate Screen (test code = Negative Negative 48017-4) Benzodiazepine Screen (test code = Negative Negative 45011-9) Cocaine (Metab.) Screen (test code = Negative Negative 3397-7) Methadone Screen (test code = Negative Negative 46289-3) Opiate Screen (test code = 36251-3) Positive Negative A Cannabinoid Screen (test code = Negative Negative 19147-1) Amph/Methamph Screen (test code = Negative Negative 59493-1) Phencyclidine Screen (test code = Negative Negative 84693-0) ERI (test code = ERI) Comment for Urine pH: Per auto radiator specialist's recommendations, acceptable pH range for urine drug screen testing is 3 to 11. pH testing not performed on this urine sample. While physiologically incompatible, the effect on the results of testing urine outside of pH 3-11 is unknown.DRUG CUTOFF CONC.Cocaine 300 ng/mL Cannabinoid 50 ng/mLBenzodiazepine 200 ng/mLBarbiturate 200 ng/mLPhencyclidine 25 ng/mLOpiate 300 ng/mLMethadone 300 ng/mLAmphetamine/ 1000 ng/mL Methamphetamine This assay provides an unconfirmed qualitative test result for the clinical management of patients in emergency situations. Chain of custody not maintained. Some ncal-zkv-xywlavo medications, as well as adulterants, may cause inaccurate results. Clinical correlation should be applied. A more comprehensive drug screen or confirmation of a detected drug may be performed upon request. Lab Interpretation (test code = Abnormal 74188-3) [facility] [id number] 07:05:00 Test Item Value Reference Range Interpretation Comments BARBITURATE URINE (BEAKER) (test Negative Negative code = 725) BENZODIAZEPINE SCREEN URINE (BEAKER) Negative Negative (test code = 726) COCAINE (METAB.) SCREEN (BEAKER) Negative Negative (test code = 1164) METHADONE SCREEN (BEAKER) (test code Negative Negative = 1436) OPIATE SCREEN URINE (BEAKER) (test Positive Negative A code = 734) CANNABINOID SCREEN URINE (BEAKER) Negative Negative (test code = 727) AMPH/METHAMPH SCREEN (BEAKER) (test Negative Negative code = 1438) PHENCYCLIDINE SCREEN URINE (BEAKER) Negative Negative (test code = 608) Comment for Urine pH:Per auto radiator specialist's recommendations, acceptable pH range for urine drug screen testing is 3 to 11. pH testing not performed on this urine sample. While physiologically incompatible,the effect on the results of testing urine outside of pH 3-11 is unknown.DRUG CUTOFF CONC.Cocaine 300 ng/mL Cannabinoid 50 ng/mLBenzodiazepine 200 ng/mLBarbiturate 200 ng/mLPhencyclidine 25 ng/mLOpiate 300 ng/mLMethadone 300 ng/mLAmphetamine/ 1000 ng/mL MethamphetamineThis assay provides an unconfirmed qualitative test result for the clinical management of patients in emergency situations. Chain ofcustody not maintained. Some ybdm-huy-hfudaos medications, as well as adulterants, may cause inaccurate results. Clinical correlation should be applied. A more comprehensive drug screen or confirmationof a detected drug may be performed upon request. Strep screen [id number] 11:43:14 Test Item Value Reference Range Interpretation Comments Strep screen No beta hemolytic Specimen culture Streptococci InformationSpec imen isolate (test isolated Source: Throat Specimen code = 2246) Site: Not other mcwilliams specified [facility] Pelvis W Wo [id number] 09:43:23Hm Interface, Radiology Results - 02/11/2019 9:46 AM CDTEXAMINATION: MRI ABDOMEN W WO CONTRAST, MRI PELVIS W WO CONTRASTCLINICAL HISTORY: Concern for Small Bowel inflammation. Pleae performMR enterography protocol.TECHNIQUE: Multiplanar multisequence MR images of the abdomen and pelvis were obtained pre- and post dynamic intravenous administration of Gadolinium. MR enterography protocolwas obtained.COMPARISON: CT abdomen and pelvis 02/08/2019FINDINGS:1.There are no signs of small or large bowel inflammation. Specifically, there is no bowel wall or mucosal fold thickening or edema, mucosal hyperenhancement, or perienteric or pericolonic edema or vasa recta engorgement. There is no evidence of small or large bowel obstruction. No mass is seen.2.The stomach and appendix are normal.3.The liver, spleen, pancreas, gallbladder, bile ducts, and adrenals are normal.4.The kidneys and urinary bladder are normal.5.The uterus and ovaries are normal. Trace free fluid in the pelvic cul-de-sac is in the normal physiologic range.6.There is no vascular abnormality.7.No lymphadenopathy is seen.8.No marrow abnormality is seen.IMPRESSION: No evidence of small bowel inflammation.[facility]-[id number] McgheeMRI Abdomen W Wo [id number] 09:43:23Hm Interface, Radiology Results - 02/11/2019 9:46 AM CDTEXAMINATION: MRI ABDOMEN W WO CONTRAST, MRI PELVIS W WO CONTRASTCLINICAL HISTORY: Concern for Small Bowel inflammation. Pleae performMR enterography protocol.TECHNIQUE: Multiplanar multisequence MR images of the abdomen and pelvis were obtained pre- and post dynamic intravenous administration of Gadolinium. MR enterography protocolwas obtained.COMPARISON: CT abdomen and pelvis 02/08/2019FINDINGS:1.There are no signs of small or large bowel inflammation. Specifically, there is no bowel wall or mucosal fold thickening or edema, mucosal hyperenhancement, or perienteric or pericolonic edema or vasa recta engorgement. There is no evidence of small or large bowel obstruction. No mass is seen.2.The stomach and appendix are normal.3.The liver, spleen, pancreas, gallbladder, bile ducts, and adrenals are normal.4.The kidneys and urinary bladder are normal.5.The uterus and ovaries are normal. Trace free fluid in the pelvic cul-de-sac is in the normal physiologic range.6.There is no vascular abnormality.7.No lymphadenopathy is seen.8.No marrow abnormality is seen.IMPRESSION: No evidence of small bowel inflammation.[facility]-[id number] MethodistSedimentation [id number] 08:55:23 Test Item Value Reference Range Interpretation Comments Sedimentation rate (test code = 8 0- 20 mm/hr 99911-1) [facility]-reactive [id number] 08:08:10 Test Item Value Reference Range Interpretation Comments CRP (test code = 1988-5) 0.49 mg/dL 0-0.5 [place] MethodistComprehensive metabolic [id number] 08:08:09 Test Item Value Reference Range Interpretation Comments Sodium (test code = 143 135- 148 mEq/L 2951-2) Potassium (test code = 3.6 3.5- 5.0 mEq/L 2823-3) Chloride (test code = 106 98- 112 mEq/L 2074-0) CO2 (test code = 2027-) 23 24- 31 mEq/L L Anion gap (test code = 14@ANIO 7- 15 mEq/L 60928-9) BUN (test code = 3094-0) 10 mg/dL 6-20 Creatinine (test code = 0.81 mg/dL 0.5-0.9 2160-0) Glucose (test code = 100 mg/dL 65-99 H 2345-7) Calcium (test code = 8.3 mg/dL 8.3-10.2 97077-5) Protein (test code = 6.5 g/dL 6.3-8.3 9994.6-7.0 2885-2) g/dL1 hfsg5193.4-7.6 g/dL7 months-2eqwy698 .1- 7.3 g/dL1-2 lidpd575.6-7.5 g/dL>3 ikacy223.0-8.0 g/lL43-8023980. 3-8 .3 g/dL Albumin (test code = 3.2 g/dL 3.5-5 L 1751-7) A/G ratio (test code = 1.0 0.7-3.8 1759-0) Alkaline phosphatase 49 U/L 35-104 (test code = 6768-6) AST (test code = 1920-8) 11 U/L 10-35 ALT (test code = 1742-6) 15 U/L 5-50 Total bilirubin (test <0.2 0-1.2 code = 1974-2) Lab Interpretation (test Abnormal code = 92954-0) [place] MethodistEstimated [id number] 08:08:08 Test Item Value Reference Range Interpretation Comments Estimated GFR (test >=90 mL/min/1.73 m2 Caterg ory Units code = 5488) InterpretationG 1 >=90 Normal or highG2 60-89 Mildly aggespietA2q 45-59 Mildly to mode rately xdjybeqkeD4m 30-44 Moderately to severely decreasedG4 15-29 Severely decre asedG5 <15 Kidn ey failureThe eGFR was calculated jackie terrell the Chronic Kidney Disease Epidemiology Co llaboration (CKD-EPI) equat ion. Interpretation is based on recommendations of the National Kidney Foundation-Kidn ey Disease Outcomes Qualit y Initiative (NKF-KDOQI) pub lished in 2013. [facility] with platelet and [id number] 07:11:12 Test Item Value Reference Range Interpretation Comments WBC (test code = 29373-4) 8.36 4.50- 11.00 k/uL RBC (test code = 67395-3) 3.86 m/uL 4.2-5.5 L HGB (test code = 718-7) 11.2 g/dL 12-16 L HCT (test code = 4544-3) 35.7 % 37-47 L MCV (test code = 787-2) 92.5 fL 82-100 MCH (test code = 785-6) 29.0 pg 27-34 MCHC (test code = 786-4) 31.4 g/dL 31-37 RDW - SD (test code = 41.1 fL 37-55 91781-8) MPV (test code = 24727-1) 10.6 fL 8.8-13.2 Platelet count (test code 247 150- 400 k/uL = 42799-4) Nucleated RBC (test code 0.00 /100 WBC = 99496-4) Neutrophils (test code = 66.5 % 39-69 48572-6) Lymphocytes (test code = 21.3 % 25-45 L 95425-8) Monocytes (test code = 8.5 % 0-10 78318-0) Eosinophils (test code = 3.0 % 0-5 48610-4) Basophils (test code = 0.5 % 0-1 64813-1) Immature granulocytes 0.2 % 0-1 "Immat ure (test code = 11502-8) granul ocytes" (promyelocytes, myelocytes, metamyelocytes) Lab Interpretation (test Abnormal code = 49156-9) Simone Bermeo Hepatobiliary (HIDA Scan)2019-02-10 19:45:10Hm Interface, Radiology Results 02/10/2019 7:48 PM CDTProcedure: ONUR HEPATOBILIARY (HIDASCAN)Clinical History: Nausea vomiting Technique:The patient was injected with 4 mCi of Af-59p-gmkbbefadn intravenously, followed by dynamic imaging of the abdomen in the anterior projection for 1 hour.Findings:There is normal uptake of tracer by the liver with normal excretion into the biliary tree. Tracer proceeds normally into the gallbladder and small bowel. Impression:No evidence of acute cholecystitis or common bile duct obstruction. [id number] [place] TaoistUS [id number] 15:03:14 Interface, Radiology Results 02/10/2019 3:06 PM CDTEXAMINATION: US GALLBLADDERCLINICAL HISTORY: Abd pain unspecifiedCOMPARISON: None.FINDINGS:Gallbladder: The gallbladder is without evidence of calculi. The gallbladder wall is not thickened and there is no pericholecystic fluid.CBD: 4 mm , within normal limits.Portal vein: The portal vein demonstrates normal hepatopetal flow. The p ortal vein measures 1.2 cm, within normal limits.IMPRESSION:Negative gallbladder ultrasound examination[facility]L-[id number] MethodistLipase [id number] 14:14:26 Test Item Value Reference Range Interpretation Comments Lipase (test code = 3040-3) 18 U/L 13-60 [place] MethodistCT Abdomen Pelvis W [id number] 13:05:02 Interface, Radiology Results 02/08/2019 1:08 PM CDTEXAMINATION: CT ABDOMEN PELVIS W CONTRASTCLINICAL HISTORY: 23 yearsFemale Nausea vomitingTECHNIQUE: Multiple axial images of the abdomen and pelvis were obtained following intravenous administration of iodinated contrast. Sagittal andcoronal computerized reformatted images were also obtained. CT imaging was performed with iterative reconstruction techniques and/or automated exposure control to reduce radiation dose. COMPARISON: None.IMPRESSION:LUNG BASES:The lung bases are free of acute disease.ABDOMEN:Liver: The liver is normal.No focal mass.Gallbladder/Biliary: The gallbladder is normal. There is no evidence of intra or extrahepatic biliary ductal dilatation.Spleen: The spleen is not enlarged.Pancreas: The pancreas is unremarkable.Adrenal Glands: The adrenal glands are unremarkable.Kidneys: The kidneys are unremarkable. No mass, hydronephrosis or calculi.Vascular: The abdominal aorta is nonaneurysmal.Nodes: Nonspecific mildly prominent small bowel mesenteric lymph nodes measure up to 12 x 7 mm. Lymph nodes are likely reactive in etiology..Bowel: No bowel obstruction or inflammatory changes. The appendix appears normal.Ascites/fluid collections: No ascites or fluid collections.PELVIS:No mass, fluid collection or significant adenopathy. MUSCULOSKELETAL: No suspicious osseous lesions. SUMMARY:1.No acute abnormalities. Nonspecific mesenteric lymph nodes measuring up to 12 x 7 mm likely reactive in etiology. [facility]-[id number] MethodistHemoglobin & wpcosammby1379-97-63 06:58:47 Test Item Value Reference Range Interpretation Comments HGB (test code = 718-7) 11.7 g/dL 12-16 L HCT (test code = 4544-3) 37.5 % 37-47 Lab Interpretation (test code = Abnormal 62717-7) Simone Ernst drugs of abuse sqdskv3158-04-89 22:35:00 Test Item Value Reference Interpretation Comments Range Amphetamine screen, Negative urine (test code = 3349-8) Barbiturate screen, Negative urine (test code = 3377-9) Benzodiazepine Negative screen, urine (test code = 3390-2) Cocaine screen, Negative urine (test code = 3397-7) Methadone Negative metabolite (EDDP), urine (test code = 98198-0) Opiates screen, Negative urine (test code = 3879-4) Oxycodone screen, Negative urine (test code = 89730-1) Phencyclidine Negative screen, urine (test code = 3936-2) Tricyclic screen, Negative urine (test code = 14052-1) Cannabinoid screen, Negative Drug scr een minimum urine (test code = concentra tion of 3427-2) detectabilityAm phetamines 1000 ng/mLBarbiturat es 200 ng/mLBe nzodiazepines 300 ng/mLCocaine 300 ng/mLMethadone 300 ng/mLOp iates 300 ng/mLOxycodone 300 ng/mLPh encyclidine 25 ng/mLCannabinoi ds 50 ng/mLTr icyclics 1000 ng/mLResults are from screen ing tests and should only be used for medical evaluat ion. Drug testing for leg al purposes requires defini tive (or confirmatory) t esting methods, which are available upon request. C ontact the laboratory if d efinitive testing is requ ired. Simone McgheehCG qualitative, urine gqzftj4736-15-31 19:02:40 Test Item Value Reference Range Interpretation Comments hCG qualitative, Negative Sensitivity of HCG test: urine (test code = 25 mIU/mL Negative test 6-3) results in lizzie ents suspected to be should be retes nicky with a sample obtained 48-72 hours later, or by performing a qu antitative assay. [place] AzlwxpyhnIibdicukjt7316-00-28 19:02:40 Test Item Value Reference Range Interpretation Comments Glucose, UA (test code = 41610-2) Negative Negative Bilirubin, UA (test code = 5770-3) Negative Negative Ketones, UA (test code = 2514-8) Negative Negative Specific gravity, UA (test code = 1.020 1.001-1.035 5811-5) Blood, UA (test code = 5794-3) Negative Negative pH, UA (test code = 5803-2) 7.5 5.0-8.5 Protein, UA (test code = 54312-0) Negative Negative Urobilinogen, UA (test code = <2.0 <2.0 47169-2) Nitrite, UA (test code = 5802-4) Negative Negative Leukocyte esterase, UA (test code = Negative Negative 5799-2) Color, UA (test code = 5778-6) Yellow Appearance, UA (test code = 5767-9) Clear [place] [facility] + automated plpn4422-88-19 07:27:00 Test Item Value Reference Range Interpretation Comments WBC (test code = 6690-2) 4.2 3.5- 10.5 K/L RBC (test code = 789-8) 4.09 3.93- 5.22 M/L MCHC (test code = 786-4) 30.4 32.2- 35.5 GM/DL L Hematocrit (test code = 4544-3) 38.2 % 34.1-44.9 MCV (test code = 787-2) 93.4 fL 79.4-94.8 MCH (test code = 785-6) 28.4 pg 25.6-32.2 RDW (test code = 788-0) 12.1 % 11.7-14.4 Platelets (test code = 777-3) 253 150- 450 K/CU MM MPV (test code = 82685-6) 9.8 fL 9.4-12.3 nRBC (test code = 413) 0 0- 0 /100 WBC Lab Interpretation (test code = Abnormal 94183-9) [facility] Hqdnfshmjlzl6418-21-68 07:27:00 Test Item Value Reference Range Interpretation Comments % Neutros (test code = 56 % 2816) % Lymphs (test code = 28 % 2817) % Monos (test code = 2818) 7 % % Eos (test code = 2819) 6 % % Baso (test code = 2820) 2 % % Atypical Lymphs (test 1 % 0-0 H code = 2829) # Neutros (test code = 2.35 K/ul 1.56-6.13 2830) # Lymphs (test code = 1.18 K/ul 1.18-3.74 2831) # Monos (test code = 2832) 0.29 K/uL 0.24-0.36 # Eos (test code = 2834) 0.25 K/uL 0.04-0.36 # Baso (test code = 2835) 0.08 K/uL 0.01-0.08 # Atypical Lymphs (test 0.04 K/uL 0-0 H code = 2858) Total Counted (test code = 100 1351) RBC Morphology (test code Normal = 762) WBC Morphology (test code Normal = 487) Platelet Morphology (test Normal code = 486) Artifact (test code = Present 3432) Platelet Conc (test code = Adequate 3438) ERI (test code = ERI) Received comment: User comments: Slide comments: Lab Interpretation (test Abnormal code = 19487-0) [facility] & AUTO ZOJPVWCCLKYB3419-41-09 07:27:00 Test Item Value Reference Range Interpretation Comments WHITE BLOOD CELL COUNT (BEAKER) 4.2 K/ L 3.5-10.5 (test code = 775) RED BLOOD CELL COUNT (BEAKER) 4.09 M/ L 3.93-5.22 (test code = 761) HEMOGLOBIN (BEAKER) (test code = 11.6 GM/DL 11.2-15.7 410) HEMATOCRIT (BEAKER) (test code = 38.2 % 34.1-44.9 411) MEAN CORPUSCULAR VOLUME (BEAKER) 93.4 fL 79.4-94.8 (test code = 753) MEAN CORPUSCULAR HEMOGLOBIN 28.4 pg 25.6-32.2 (BEAKER) (test code = 751) MEAN CORPUSCULAR HEMOGLOBIN CONC 30.4 GM/DL 32.2-35.5 L (BEAKER) (test code = 752) RED CELL DISTRIBUTION WIDTH 12.1 % 11.7-14.4 (BEAKER) (test code = 412) PLATELET COUNT (BEAKER) (test 253 K/CU MM 150-450 code = 756) MEAN PLATELET VOLUME (BEAKER) 9.8 fL 9.4-12.3 (test code = 754) NUCLEATED RED BLOOD CELLS 0 /100 WBC 0-0 (BEAKER) (test code = 413) (CELLAVISION MANUAL DIFF)2019-01-16 07:27:00 Test Item Value Reference Range Interpretation Comments NEUTROPHILS - REL 56 % (CELLAVISION)(BEAKER) (test code = 2816) LYMPHOCYTES - REL 28 % (CELLAVISION)(BEAKER) (test code = 2817) MONOCYTES - REL 7 % (CELLAVISION)(BEAKER) (test code = 2818) EOSINOPHILS - REL 6 % (CELLAVISION)(BEAKER) (test code = 2819) BASOPHILS - REL 2 % (CELLAVISION)(BEAKER) (test code = 2820) ATYPICAL LYMPHOCYTES - REL 1 % 0-0 H (CELLAVISION)(BEAKER) (test code = 2829) NEUTROPHILS - ABS 2.35 K/ul 1.56-6.13 (CELLAVISION)(BEAKER) (test code = 2830) LYMPHOCYTES - ABS 1.18 K/ul 1.18-3.74 (CELLAVISION)(BEAKER) (test code = 2831) MONOCYTES - ABS 0.29 K/uL 0.24-0.36 (CELLAVISION)(BEAKER) (test code = 2832) EOSINOPHILS - ABS 0.25 K/uL 0.04-0.36 (CELLAVISION)(BEAKER) (test code = 2834) BASOPHILS - ABS 0.08 K/uL 0.01-0.08 (CELLAVISION)(BEAKER) (test code = 2835) ATYPICAL LYMPHOCYTES - ABS 0.04 K/uL 0.00-0.00 H (CELLAVISION)(BEAKER) (test code = 7478) TOTAL COUNTED (BEAKER) (test code = 100 1351) RBC MORPHOLOGY (BEAKER) (test code Normal = 762) WBC MORPHOLOGY (BEAKER) (test code Normal = 487) PLT MORPHOLOGY (BEAKER) (test code Normal = 486) ARTIFACT (CELLAVISION)(BEAKER) Present (test code = 3432) PLATELET CONCENTRATION Adequate (CELLAVISION)(BEAKER) (test code = 3438) Received comment: User comments: Slide comments:Basic metabolic [id number] 06:55:00 Test Item Value Reference Range Interpretation Comments Sodium (test code = 139 meq/L 901-209 3797-2) Potassium (test code = 3.8 meq/L 3.5-5.1 2823-3) Chloride (test code = 109 meq/L 98-107 H 2075-0) CO2 (test code = 25 meq/L 22-29 2028-9) BUN (test code = 4 mg/dL 7-21 L 3094-0) Creatinine (test code = 0.77 mg/dL 0.57-1.25 2160-0) Glucose (test code = 85 mg/dL 70-105 2345-7) Calcium (test code = 8.5 mg/dL 8.4-10.2 36861-8) EGFR (test code = 95 mL/min/1.73 [place] [address]-4) NOT ACCURATE CREATININE CLEARANCE IN PREDICTING GLOMERULAR FILTRATION RATE . ESTIMATED GFR I S NOT APPLICABLE FOR DIALYSIS PATIEN TS. Lab Interpretation Abnormal (test code = 27999-4) [facility] 06:55:00 Test Item Value Reference Range Interpretation Comments Magnesium (test code = 89383-2) 1.9 mg/dL 1.6-2.6 Lab Interpretation (test code = Normal 36024-4) [facility] 06:55:00 Test Item Value Reference Range Interpretation Comments MAGNESIUM (BEAKER) (test code = 1.9 mg/dL 1.6-2.6 627) BASIC METABOLIC [id number] 06:55:00 Test Item Value Reference Range Interpretation Comments SODIUM (BEAKER) 139 meq/L 136-145 (test code = 381) POTASSIUM (BEAKER) 3.8 meq/L 3.5-5.1 (test code = 379) CHLORIDE (BEAKER) 109 meq/L 98-107 H (test code = 382) CO2 (BEAKER) (test 25 meq/L 22-29 code = 355) BLOOD UREA NITROGEN 4 mg/dL 7-21 L (BEAKER) (test code = 354) CREATININE (BEAKER) 0.77 mg/dL 0.57-1.25 (test code = 358) GLUCOSE RANDOM 85 mg/dL 70-105 (BEAKER) (test code = 652) CALCIUM (BEAKER) 8.5 mg/dL 8.4-10.2 (test code = 697) EGFR (BEAKER) (test 95 mL/min/1.73 ESTIMA NICKY GFR IS code = 1092) sq m NOT ACCURATE CREATININE CLEARANCE IN PREDICTING GLOMERULAR FILTRATION RATE . ESTIMATED GFR I S NOT APPLICABLE FOR DIALYSIS PATIEN TS. RAD, ABDOMEN/KUB, 1 VIEW [id number] 12:53:00Reason for exam:->r/o obstructionShould this be performed at the bedside?->YesFINAL REPORT CLINICAL HISTORY: obstruction TECHNIQUE: Supine abdomen COMPARISO N: None IMPRESSION: The bowel gas pattern is nonspecific. Free air and air-fluid levels are not definitively seen, but also cannot be excluded on the supine view. Signed: Rea Blankenship Verified Date/Time: 01/15/2019 12:53:50 Reading Location: [facility] Radiology Reading Room XR abdomen / KUB 1 view 2019-01-15 12:53:00Interface, External Ris In - 01/15/2019 12:56 PM CDTFINAL REPORT CLINICAL HISTORY: obstruction TECHNIQUE: Supine abdomen COMPARISON: None IMPRESSION: The bowel gas pattern is nonspecific. Free air and air-fluid levels are not definitively seen, but also cannot be excluded on thesupine view. Signed: Rea Blankenship Verified Date/Time: 01/15/2019 12:53:50 Reading Location: [facility] Radiology Reading Room [facility] [id number] 11:40:00 Test Item Value Reference Range Interpretation Comments Case Report (test code Surgical Pathology = 104) Report Case: [id number] Authorizing Provider: Moon Alvarez MD Collected: 01/13/2019 1746 Ordering Location: [address] Received: 01/14/2019 1144 Service Pathologist: Brad Preciado MD Specimen: Biopsy, Gastric, R/O H.Pylori DIAGNOSIS (test code = [id number] 3220) FuZzEwMzNcZnRuYmpcdWMx GFvvpbVfNUdxv7PlK1LsEm AwMFxhbnNpXGRlZmxhbmcx OEDnEON2ilNiGYSwAIfoHH GeOKblIz8agUWyvAetTrNi XUCer2wgnsMUstcugDq8v9 jpMOCaUeK8dPSpDCeqB3wo qvGdbIMkKPLlUYa8gK01JV TjcN7tfTKpMIydidDeOrX7 MWcrDOOsDnX9HQOkcZGlHQ CiB7hyNMXjHSwsLSRgFUrv rVPnVTO6vOtfy0X8aZEvuM MxxCzhRjKvMxNxCOHQg0Id GSd0aNxnD0UwMSBmTnW5bG QgUGFyYWdyYXBoIEZvbnQ7 rT07YSzjtaH5wJEfd7Pka4 2og488dD2mzKEjFFB4DWOz FAVjiWVqRSRkVXS4JKYxzB AkL9y0CxGrfQIoK6J1ErJl kUKwH8Y6StHyePItB6D8Dj FbxXIdQFAppCXlLt4ftVUs xETbck2hcl03BZX6i7XjjV wwIQJ5FBW4EqYjIr8svEFj SLOwTG1qAfWaoVHbMCKtbd 91yMfoFNjuniLxrK3nSkUj FW9mbEezr49mLYSyRL4ofV 8bhm6uanGoELauxUZmuMU9 cmxiBSO0ZTCvotCfa8Ryg0 vkVwKtxhRtB1xhI3WcLXCo GAQqRMEpUtMnnpRof9Wsk3 TudEEbxGy7s8ocNAMcZITe lAgkd3xnWOB5INLnA8K5iV Vek0mcZWngCEBcxDL3vmln OQfbVYXvahV1qvaeCZtzYK MlxNM6ydfcOPpgJRIrBeH5 ytmvTDmhQFXyRAV3RSyka8 61KDR1QGnmBpnlVYdaUOCm bmNvbnRccGduZGVjXHBsYW luXHBsYWluXGYwXGZzMjRc yVZvPQdiv0YcuxUrhQauNC OfLTk5rjPrsaquxMc5xFVd mJbdTLYfnJaigM3dGiPnPn BlJCkvRX6iRHSbC1khmDOe JGLkHJKvW4daZuUnmI6qgC xmMVxmczIwIEEuIFxwbGFp blxmMVxmczIwXGxhbmcxMD FxEShsP6awOaAsZAVguDfi GWvky4EzNONxLZPoDeokqk TyOMd2pbRxKTFYT82FT7hq IFxwbGFpblxmMVxmczIwXG jzytxdNLGkMFlhB4uvLmNs LSEesVqcYYddn5PzRQSdWT VhYuSoCmUNEI4WEIsiyYEd blxmMVxmczIwXGxhbmcxMD WtIQlsZ6dnUmEfTEMftGsf SVyuv9YcTNRtKIOeRaihqz QvTAd1wkNxQJLUY0NLQHEr YWluXGYxXGZzMjBcbGFuZz EwMzNcaGljaFxmMVxkYmNo MGEwDJwsF9mjCnImNnYiYE ZWCQKecBzheR7uGfPjWsAi FLrvYJ7wJURhS6uvxPKwRR RaZRJyD2euZlFvlS9keYtg MVxjZjJcZnMyMFxsdHJjaC V0FQVbiqenqOXbrbfbVNbw czIwXGxhbmcxMDMzXGhpY2 pvQvRjPWYpvJuxFUvgu2Zf XGYxXGZzMjAgIFxwbGFpbl xmMVxmczIwXGxhbmcxMDMz CQbeP5gzJeLtYBJhdWzdWH mho9ExYRMjMTGdKftyquAn PXv4doZhRA5qhZuulC1oHz KfFvDsOQzxVO9xIEBsW9br aKGhXDYpBNZqO0bpWfQajN 9jaFxmMVxmczIwICBccGxh wO6iYrWmAxPmJJppNX1mSX FnT3lirVCtTFHdXLDhB0ey GjAaeV3foVjyKIaxVsPnEo MyMFxsdHJjaCAgTUlMRCBD SFJPTklDIElOQUNUSVZFIE hAR0FYGFQRL8akeKDqoxnd MVxmczIwXGxhbmcxMDMzXG rmS0xqAdEqOBTwuBreWSmy a0MnPYOcEVZiQmHbvWOoAY YkdZliaO0yEjFhRjTrDZqy WR2qBXXwU4zhiTBzIAHcCT NkI2mrBnJaxJ5zyGhcHXcb ZjJcZnMyMFxsdHJjaCAtXH BsYWluXGYxXGZzMjBcbGFu ZzEwMzNcaGljaFxmMVxkYm ZuUHVwIMatO9rtQuWbAeLv MCAgXHBsYWluXGYxXGZzMj BcbGFuZzEwMzNcaGljaFxm CJnwIyJnRCBjYHvwI1crEh UhL2BxOEOdIcWdsWKjF8hm OJ3AP1YLLIBGVKPYIbTENL nSC86VGHWUUVAnIQlCO7KJ UY7UY9RLGKHSBvUJFFSJBB JUSElOIFNUQVJSWSBTVEFJ ZoomROWxrNXaPEgfx5Gfue FhdXgwXHMwXHFsXHBsYWlu GFDdXNEeBcGiaFzkvP0aPy CyOuGtWUziEU5nJCXjZ2wo gIZmKSKaVOHyI7bfHsBvuX 9jaFxmMVxmczIwICBccGxh sU2iOyXqZmXbUZvySS8oCR LpQ1tqtOFiPAPwQUSaO1uy UsVnmI0iySekJAptUdGyVn MyMFxsdHJjaCAtXHBsYWlu XGYxXGZzMjBcbGFuZzEwMz NcaGljaFxmMVxkYmNoXGYx PAkbW0foKgUeFgQvWMVqPF BsYWluXGYxXGZzMjBcbGFu ZzEwMzNcaGljaFxmMVxkYm LxMRNiBIsgE0ekYyJvP9Uc IYPqTmSbhTJfV9lxOA4CA9 BVQAATEOQLUfZMFfYCA5PX JdUGMS4VNNQXGABXEMVnPT XHS9BTBXEKWTfuAOIPNUaX YF1CXHtcvSQvwfhrWEiufg YuFOghsdmpAXXeUWabK3xy MjIyACXweHjiCYkyv0DwRA VeOGTyFpKcjTLvKEFuuj13 LCK4LcOqf2B0CCB9RLIuRL Zzx4wbBWMcdVPtKiCmIzGr ZnRuYmpcdWMxXGRlZmYwe1 jmn222qHXtv5lhYHZnQwD7 iFLpHCSxmYGmD118NTDrRV vcj7eto1ZhAVVpmNMud2K6 GWMQpufexGi0tIdyP14zk5 B1TdhbK3iqVBWkDYIkL7Vj TC9eLZNeVmf0ZCC4PJK1AA TnBOZwN5SnYA3cAKYucUQw OOs0z2ebfCqmQQKkHZL1c2 zmWEtczsOrAM7oqg2weHs1 f3kafmFxYFFeOKBdmCZFBU NsU8LkxDulOs2zpBj3mXbl GfxvDGZ0Osl4BT7rvf11ac g9cFgxUNBbjywfMuK1YZdv MLMkpeqwZSs5RWwfUUKjgE F8GPTysTFaQ3JsYNMbTO1g apq4QZT7WNneVESrIiU8UV LdoQYiRNFvvIrkDWmtx407 WZS1EqZuIS9pC6Bpl4P9xD 9maXRcZGVmdGFiNzIwXGZv cq6viSTfDYuwq4BqEHN6un J8wECncYAdBVDqKoK4MSnz SU6pki93LRYgAFO9il8xuF WpxArrsiBoxYKqOFbwU7Pp HAKyr291ZIKsR9JgQEPgs2 D6scRnAxJpRCWakLV1tjC0 ZVUfQU6ppplbs3prILnkNF wiYBTczdK1mnY7YUTdvYUz Z4ZfnD0zEGPlHQ3npdpuh9 rsUYS0EUhzVECrKVE2VdMx AVKnx6Disjv9JzFnd0DdtS UjCIxfI45qj793EWUeuoQc S7hbdYQvlboqfBDqutpmNO mwuzO7GDFpFLpjawbbBRNs ZPmtD3ryKuUfVRMxfRkvHE ttz0FtDFEvHJQgJqPggYHh UWUqZwb0ZHXhlASaFZUjIh TdJ8ouuhhcWxSVRNHwf8yj W6hxpVNWuYMiE7MqYSyrqa UkTPrxZPpvCDG3MDT6Hf74 PcA0SQCnvy62 CPT Code(s) (test code b4oohIPsIXNgzZLoFuLeTD = 3357) ReWENtz8ieUGQvfBJvFxSm MzNcZnRuYmpcdWMxXGRlZm Xqa3dmp950aCUht8tdTSFr UpW1qEKiBUKpzHDcK994n1 zks8yaxqSsxEP5TGQwTPY1 TJwvrrVgbcA5KXvfaUHtKn M0QRujteOpYXfjhuCyqdTq Goq3NVRuZ078OWZ6sKsjt1 ccEUV9DOTrBJHxTzAdFi9q yFRpS647BVClJLDWZQWfgZ f5BUHiiuMcdfVayNCUf474 A936j3kfRULkugMabGrNgw lrv1epR751LEHloXOsjjFn ZiXnOHDuzZBkdZL2NQJyXD 9twmnlWbRrBR8ydmqtMyPl CW1fote6ZfTbTN8ajctnZo OnAOliNZYiptxzZBGaq1Lv zodtIT4nG6Ycb3C0nO5bzM BpEBUbqSEcTtFaARGcli1e kPSiUJkxr0WsFSQ0dyQ7kX BglDMjMHWfGN16Kjujn3Pn UxqvZSY9TJXahgYqk3Xoo9 buWgDirmSeI1jzU2MkBZKl XVZxLCUvKeXaukJsi4Goc5 TbuJXulUb4c6ykEAIfKEGi mXxui5txUCN7GYGvO7X8sI Lri3xyTDadVZEchQV6wdfx ZLqxQRNfkyG4xfgoYMqoVF XoxUA2qtyaNSihDCOkXzO4 kyflMKtzGPUcRGI3TKpqo0 37DYV6EPtxKdqxMXejGTDa bmNvbnRccGduZGVjXHBsYW luXHBsYWluXGYwXGZzMjRc lYvpwVndgY1sKuAlCoKzQN liBN5fHYAlG6pbqSQeKXKw WFYlS1ylXyHlkO5teOwjEK khdxYkONh9UbO4DEAmosJ6 ODMxMlxwYXJ9 SPECIMEN SOURCE (test h8wezBLaZOAovXAfEyIdJY code = 3377) PwJNMqi9huLWPegTVoIbWb MzNcZnRuYmpcdWMxXGRlZm Awk4bag086gSDwg5rbJGDu MkW1rBUtLRVdeDKnW154s0 lmx2hyyzJfeLP5ETHrNQG8 AEhxlrXnfeH7ALscyGRvDd A5LFthmsDzLGakerBwpgNe Prc6HAGbQ016XHJ6oYent3 yzTYY8ZGQdQUNrBvCxKw0o rUXiA424ADObAXDDBUEmwF u9TJYdhiBpxlZfzCFSe367 V942d9yhQSDhunAmlYmTgd edk4cvH242MAJtaNHlzmQv OuJsUVHyiNCpjVF9AAPyDO 1ickcnUqVgRG5pczetZzVc LZ8xhah3YpUcVE1nxcxcBk VdLGrlOJRbwxfsBCXzb1Mt jmgdQX0tU4Wec7Y6eV1luH ZmIEIbqYAbYkOhHCWazz1o uWBzUUkps1AmEJI6cxS6vH QuxZRtFSCzJC14Qrxqm6Cb TpmoCPP8ZHKyihOfm9Wit8 nbMlKgdlByF5oiQ5ZmPKEv ATEvHQZxTbZlckJsv2Czu3 SblFWqwEs9i1uuEFKrUVPw iQber1exATH9QKHoX6D7dE Tvx8mbMDopOGNcgZC1hjhd XTkaJLGgudS6lhnbOKrcXA QhwHE7zawyIGyzLRMeEjZ2 fktbKCcrZZFxXFV6HYodm8 05UMC3JMjtRejdIXbjUDRz bmNvbnRccGduZGVjXHBsYW luXHBsYWluXGYwXGZzMjRc nGhgyCbfxR7uIlIuTnUbGV lpPW1wLPEgW3iexPLcQXIi JTPrQ8iqUyDesW3nzEotRO vznlAeCHLwJIncy1CsfXCw RdxniAV9FEIlaDxeSX72nV BILiBweWxvcmlccGFyfQ== GROSS DESCRIPTION (test v3kqjWPnCNGvfECkBhSbPU code = 3366) DbDXJle6leRLAgtAJoJyFa MzNcZnRuYmpcdWMxXGRlZm Fiw5gsr735oTRoi9kzCZJk BfO4hVJjBYTxwUMgJ928EE WdYEgom5dmk6LnRWXmnGPk w5N3EHBKmtihnKp4hXfxY0 6es0C2RvmhX1qqTQAaLIji ZUPqHActsDRjOQV4ABOpVM J6SWzbatZfchK1GIiqdUOp FgZ1VAm5n8qguHxtFZAjIH Q7n4rgDKstgrToQE2ywa6f zSl6a4ljgdJoBUEsLIMfcI XNHLSnA4AukTbaCj7ifWm0 nAhzNldmZID2Xvb4ZR9udn 64ums4uTevLDRvfbamNuU0 KGijPXMknvpxCKf7KHgfQX JnbDcyMFxtYXJncjcyMFxt YXJndDcyMFxtYXJnYjcyMF taZUCcCOO3UXpsn988WKT8 AMydm0iak6tnlDEwMlk4RF LqUeXzYwwnYIzsm7Del7jn HOGfws7xHBW3pCPobDxau6 B8gQHqHUByyPFxrzNlMGFn ByW6TZrzHD8czv85SOZlMI G5kc7okXOyeXahrtRvdKMo EOkvL9AwGFFai203WEFpK4 BdJOSst5D4dxZcGqLhSDJm vMO4kuQ7BEMePXf7oJFtnf I2qhIogLCpJ8mbbC08VeFk sTLuL7IqsW72WrLbkZIqF7 RbkY82HbVwlQXlX1OhnX13 EbBgzHEvPSYwbOOaBn6dgI PjcIUdj1AsqHEjNYkbH02f l444WPFpciYsD4yngXTswc xwbGFpblxmMFxmczIwXHFs XHBsYWluXGYwXGZzMjBccG dpeL0oNqXfXjQbEJAEaOSm v6KbQ7btQJ2ckNZxcvEbVC y8BRJwlH5yw70yTUSwnhJg sTPjMFgeVVX0aOLmBKWfEB NcXSRpFB83K6IuyO5xx5Cy IIEth98eGVCfDvU8OXH2Qf X9NVysdMZuVUUwqlOvn8On hoDmFSPpOTVlWZEmF7MvlA BhbnlpbmcgcmVxdWlzaXRp u12jv1qajA3nUAIvjoqnBD WhIL9wDjNhPIw8MGVdoP9u Kn1olNFrcZ5wkZMxINcaFL VzK5OzfSGvDyQpiA8xz1oa UBEvmpUIBzP2wD7gqYZeUR AnXOI7swLiroNfiIXdwALw i8GfsNPsOWJzykxyiX4xeP FuLXdoaXRlIHNvZnQgdGlz o6XrFM5yJPA1hbhxZzTpTe VobINlAfEtsQLrWzQvB10x eJ9jFUxxgjImEMMkQvKCeB I8KWDsQBPnoVHrcRV9AYAr mV1vuV20uqBoYaSgzfBroR z1wrN0jM8jHXeiEKWlw2Ck vNXsZNAlXxNbI4VstRbsyY FyfQ== MICROSCOPIC DESCRIPTION k0sniKChFVUskDLqCkSuNA (test code = 3371) GrWMOml8vxMHBvyKAqIrAw MzNcZnRuYmpcdWMxXGRlZm Hhc5eoo398fMCkw6ciDGXe IcZ0sAIsJEMtbPUdM558YB GwQFxpd6mqs1TxTWQaqJYx q1P8CETMnjhmwKy6eWkxF8 6ny5D6EsvlW6vcRWXmALxn ROPqWUmybFOcNAD4LZLlVR P3ZLyedqDjjbE4XLvjjZSj XeR4WXo1l7jcmFsaDEFtXB J4o4rvNRhjydIbZB8pem2p dNg1e7icytPkRLJdWJDtnK CMCDTyO5VibWwhLk9nvQr8 gTqtXrfeABH6Jnm3MX1pjw 25csw4iWzyKTOltzhnXoQ3 EJdwNIVmnrvjASa2WWvuME JnbDcyMFxtYXJncjcyMFxt YXJndDcyMFxtYXJnYjcyMF gdAQDlHFJ5LYofp284IQL5 VKrhy7enj8gejLMyIkf7KY CdQjQwXrxbLQzge2Iec1zm DBRvgl0rQYV2xBZsxKcaf7 A8nFDqZQOurMRkliYvPMEb ot39kJGwtUKacLHofj0her YdzFOmsOUlDQV5eEWjnxMz RZQrxXNzGHRnLN3odBGsPW AxwE7lgrrnMAEpGlOwfixx TXXinRiiyxSsNd2gzVwkMX E9BGorG9nbrY3qJxV5UFtq Y2xhsE3bZBs5GXganMT7WE GqbF8lAK0kezfei3llAvJx NS4jrsbho4uiFiJpBT1fkt e9r0bzCwTqST3njajzz8rh NzIwXGhlYWRlcnkwXGZvb3 HccvvsJSTpd5GcH2QuzIrr H38ncKmbL10cJTZjvYrnoT 1iuOpwuW9gGbWfAoCqCUdm bFxwbGFpblxmMFxmczIwXH BsYWluXGYxXGZzMjAgUGVy Cz1uoEEhOfyzWUCttIFxoK == SPECIAL STUDIES (test q2sicJWpINDbq1ffVZMsdN code = 3376) FuZzEwMzNcZnRuYmpcdWMx APvbauSmZLdpn1VeY4LcTz AwMFxhbnNpXGRlZmxhbmcx RBGqVHJ6ynKvCTRkVJyuTB SoZMamDp8amQRagHsiSsCe FNSqr4scdaVMdetafMh5j7 jfXDGkUdK8lGGuBJwkF7ua iiDmmSXqZ9EkgHGauBo5m0 pqUkYuVgT6zSUnVFrpV1hs vpBbqRAyCPUxVTo0kI27TJ KovO0scWHnGKvqknBrWuU3 VRulXZJjUiO0VTDswJHeIQ VcY4ewEHKfLAzmOULrPTnz sYGtOGY8iIeql3H8cZVqkP YjaHaqZjYuEiWbRuNLe6Py MNg0jLjcC1OlRCYnSsE8dQ QgUGFyYWdyYXBoIEZvbnQ7 dAydxjRir36weCHbBSGjDO WaHdCgdTfkQYZfRGLLu8Ob aGevDUQ7zEs6xVxsVnelUM D6Fcx7FU4jta09vqq7iXrq ZBQafmcrXqF7SMisYILces piSOx4EKvsZIFefCW5ZVLn sLKtH7FzVHFaWK7xlil8OM A9BIstNFIoAaE2AMYrlVIh OXHwbKlyFPupn843AMA8Tb CvNY6sZ3Bvz4Q9qD7ekQLf TOIgfHIhHuPoRPOkho6ktD OsDVuwl2UwQTI9tbZ4iCTk wRYuWMIjZF20Aaatd7ExUt dnn8WbZ46nvHM5ADwji8tn YV2nDbY0owWqTObrf9vucK 7aYjU7ALarCP6eBY2bJNTa eY7ixasvCVIrMpZvggisEZ PxdGhukjRiMo2ohZjbVAC4 ODizB9fjyP0iUmX8UUsgA9 gvpS5cTSg9WNfciDL0UEPc aQ8vFX9qaxvhu6atXVvvVH mqXRHtvlU9acO0YEFkuUTs A6EfzR7uETIyKL4upxvmv6 dzLPJ1YFwdJLQbRUE8BnIt PWLfv8Czdbr8LwQty3DvsZ VcALxeE28is705BHEpntGv O6xqtAOjsmzszRTxdmllLE olfuX2BHVcSAEzDZuhFSLt XGZzMjJcbGFuZzEwMzNcaG ljaFxmMVxkYmNoXGYxXGxv F9xcBlXnL8SoJEXbClYsNN afYSqbqQDheVYzgYL7jJ0g IR8pELJlmETpT8ClNRXlwg PkmUHwNEU8eCNkwZHaIR6v GSlsaFNgd0mua2RdK1ndaI ixrBA6GH6sBUNhIHXyGHou o1GtmH5bHwdajFEdwenmAW xmczIyXGxhbmcxMDMzXGhp Q9knUsMuQJHdhNxiUZewf3 NoXGYxXGNmMlxmczIyXGx0 cmNoXHBhclxwYXJccGxhaW 8uHlIwWfGlAdnfHK8bYIJk Y2bgkFBtKCCrGVUmS7akJc TeaH6tcDuvMEqiXjXzHuDe NaXXz643xl0nRBXizUJwdc UYgVMouJ1wKZvcFKotGBgq bHXlAWhbv8bjQHUgt0k0wF HvYQZvdyXfp7akUZczriWj OXJbxCVezDFbDCFxp60yKY bwoIqzsWxtYPBck1JuwHqk y6YxGgZpMFifb7ScY90mcA JvbCBzbGlkZXMgcnVuIGFs m90ng7qfDOGyXgM7iDTvtD Y5yCYmqKTog0DajZktOIKv c0boLKZxwr4vxamlpLRpi2 KunB0fyrqkRMdsaTFjdxFd BUJam0e9vBOeBVCaHLPwUM efeRw3GBBfa043uc3xcrY4 lEHiFON1UQhaHARmXTVphq UgZXZhbHVhdGVkXHBsYWlu XGYxXGZzMjJcFuZzEwMz NcaGljaFxmMVxkYmNoXGYx VHkhG1uhKgCyV9WyZBQmEt QqmUIcR0ewdBLaHWFnYQvu XGYxXGZzMjJcbGFuZzEwMz NcaGljaFxmMVxkYmNoXGYx GHenW3ziQmLvJ3HhTDIvLe IgIFxwbGFpblxmMVxmczIy KDhefhlnDJMqBOrkZ0fkCd PkLEYjiZfmHMsbb4RzKFPz TSReYoocswXyVPh7vsWwUO BhclxwbGFpblxmMVxmczIy JVnyistxWYAlLWfaB9zoWo CiVFXinMyaEIfom3FyGCAi XGNmMlxmczIyIEltbXVub2 wdr2OpG5hgsHyvlBV4WDBf G1muhJUizIO8OMA4jT4vSR oavmRnKKPsf6IcJURwXLSe ZcJ8iN4vNMU8XmZLlOtsNQ BsYWluXGYxXGZzMjJcbGFu ZzEwMzNcaGljaFxmMVxkYm WbSGVuFDmyX8wsHxXqZ7Gf AZUgEuXvxLshFYatJLi1Qp xwbGFpblxmMVxmczIyXGxh inlkKIApIHfvL9dzKrXlBA TeoWgsFOrjv8JbPDSpJPVm MlxmczIyIHMgTWVkaWNhbC EFAU09QLSfQJRzfYeylH0d lBEZLNCaqsH0r5J9ERwbJB DxXCo0TRzahzTvWWXoyE7t WIFlEH3sOUh7juVsQFWkc2 PjWW1vIYKowPPhCAV2DVMl v9EbA6Zir4XjBIMrICYbib 7vgyHsTqALdFKtFZLfpc58 STMwZX0vX6ukKRCgOPMeqm MxrPRuy3NzXRKugRR9sZVd AU1BCxGGh38eRGTpVFHYir MsGKLlcDmhcCO1zgI4xE0j LiBUaGUgRkRBIGhhcyBkZX Ernu3yvqJcKUHxFPIic5Ij fNIdzGCvmoXkI1Omj1MfQV Nnre80TEzixBAgec04VL7m A7Uya8GruS8mRBkwBRVlz4 LxfTJrtZWwPAMpi6XaN9jq kvsbNPjwvYKueP3tEKYqGU h1AXNkx4AoBDVzs1GaQbMa rwHrWVTmSHFfZSLvcG91GN L9vEnctPsfhgUeJN6gSFYv etYtCKVvNPWpeH2vPUgjlq LjUCZekpS6q0C6NYldOVUa uwVxTmxhPQH6gqVqswJ9iO ZbN6tqifakKLnhEVLgo7Dc qK6ovISXzVOpj0DhsKJexZ SSxLGeFC3ifnHkPG0mJBX7 ODggKENMSUEtODgpIGFzIH I1UVnzItshZOC3grThTDQk g2YvDXjiE0cqF88lpEdffZ k5sUMsgTgrzIDamIMkDJYg gnE7k3E7XUShl3ZthhzeSL BsYWluXGYyXGZzMjJcbGFu ZzEwMzNcaGljaFxmMlxkYm KpIRCgGZrvX9shTdYoHpTe DaysCDY0xZ== [id number] 11:40:00Surgical Pathology Report Case: [id number] Authorizing Provider: Moon Alvarez MD Collected: 01/13/2019 1746 Ordering Location: [address] Received: 01/14/2019 1144 Service Pathologist: Brad Preciado MD Specimen: Bi opsy, Gastric, R/O H.Pylori A. STOMACH, RANDOM BIOPSIES: - MILD CHRONIC INACTIVE GASTRITIS - NEGATIVE FOR HELICOBACTER PYLORI ORGANISMS BY WARTHIN STARRY STAIN - NEGATIVE FOR INTESTINAL METAPLASIA, DYSPLASIA, MALIGNANCY Signing [employer] Phone Line: [phone] signed by Brad Preciado MD on 01/15/2019 at 11:40 [id number]. Gastric biopsy, rule out H. pyloriThe specimen is received in one part labeled withthe patient's information as [id number] which corresponds to the accompanying requisition slip. A. Received in formalin labeled "gastric biopsy, r/o H.pylori" are two fragments of hathaway-pink to hathaway- white soft tissue measuring 0.2 x 0.1 x [...] evaluated Immunohistochemistry technical testing was performed at [facility], Pathology Laboratory where it was developed [...] clinical laboratory testing.CBC W/PLT COUNT & AUTO [id number] 07:43:00 Test Item Value Reference Range Interpretation Comments WHITE BLOOD CELL COUNT 4.3 K/ L 3.5-10.5 (BEAKER) (test code = 775) RED BLOOD CELL COUNT 3.99 M/ L 3.93-5.22 (BEAKER) (test code = 761) HEMOGLOBIN (BEAKER) 11.6 GM/DL 11.2-15.7 (test code = 410) HEMATOCRIT (BEAKER) 37.5 % 34.1-44.9 (test code = 411) MEAN CORPUSCULAR 94.0 fL 79.4-94.8 Discordant result VOLUME (BEAKER) (test compar ed to previous code = 753) result; clinica l correlation required. MEAN CORPUSCULAR 29.1 pg 25.6-32.2 HEMOGLOBIN (BEAKER) (test code = 751) MEAN CORPUSCULAR 30.9 GM/DL 32.2-35.5 L HEMOGLOBIN CONC (BEAKER) (test code = 752) RED CELL DISTRIBUTION 12.3 % 11.7-14.4 WIDTH (BEAKER) (test code = 412) PLATELET COUNT 237 K/CU MM 150-450 (BEAKER) (test code = 756) MEAN PLATELET VOLUME 9.9 fL 9.4-12.3 (BEAKER) (test code = 754) NUCLEATED RED BLOOD 0 /100 WBC 0-0 CELLS (BEAKER) (test code = 413) NEUTROPHILS RELATIVE 58 % PERCENT (BEAKER) (test code = 429) LYMPHOCYTES RELATIVE 27 % PERCENT (BEAKER) (test code = 430) MONOCYTES RELATIVE 11 % PERCENT (BEAKER) (test code = 431) EOSINOPHILS RELATIVE 4 % PERCENT (BEAKER) (test code = 432) BASOPHILS RELATIVE 0 % PERCENT (BEAKER) (test code = 437) NEUTROPHILS ABSOLUTE 2.48 K/ L 1.56-6.13 COUNT (BEAKER) (test code = 670) LYMPHOCYTES ABSOLUTE 1.13 K/ L 1.18-3.74 L COUNT (BEAKER) (test code = 414) MONOCYTES ABSOLUTE 0.45 K/ L 0.24-0.36 H COUNT (BEAKER) (test code = 415) EOSINOPHILS ABSOLUTE 0.17 K/ L 0.04-0.36 COUNT (BEAKER) (test code = 416) BASOPHILS ABSOLUTE 0.01 K/ L 0.01-0.08 COUNT (BEAKER) (test code = 417) IMMATURE 0 % 0-1 GRANULOCYTES-RELATIVE PERCENT (BEAKER) (test code = 2801) [id number] 06:23:00 Test Item Value Reference Range Interpretation Comments Phosphorus (test code = 2777-1) 3.1 mg/dL 2.3-4.7 Lab Interpretation (test code = Normal 93799-7) [facility] Test Item Value Reference Range Interpretation Comments PHOSPHORUS (BEAKER) (test code = 3.1 mg/dL 2.3-4.7 604) [id number] 06:23:00 Test Item Value Reference Range Interpretation Comments MAGNESIUM (BEAKER) (test code = 2.3 mg/dL 1.6-2.6 627) BASIC METABOLIC [id number] 06:23:00 Test Item Value Reference Range Interpretation Comments SODIUM (BEAKER) 138 meq/L 136-145 (test code = 381) POTASSIUM (BEAKER) 4.3 meq/L 3.5-5.1 (test code = 379) CHLORIDE (BEAKER) 110 meq/L 98-107 H (test code = 382) CO2 (BEAKER) (test 24 meq/L 22-29 code = 355) BLOOD UREA NITROGEN 5 mg/dL 7-21 L (BEAKER) (test code = 354) CREATININE (BEAKER) 0.66 mg/dL 0.57-1.25 (test code = 358) GLUCOSE RANDOM 85 mg/dL 70-105 (BEAKER) (test code = 652) CALCIUM (BEAKER) 8.3 mg/dL 8.4-10.2 L (test code = 697) EGFR (BEAKER) (test 113 mL/min/1.73 ESTIM ATED GFR IS code = 1092) sq m NOT ACCURATE CREATININE CLEARANCE IN PREDICTING GLOMERULAR FILTRATION RATE . ESTIMATED GFR I S NOT APPLICABLE FOR DIALYSIS PATIEN TS. Screen, [id number] 17:32:00 Test Item Value Reference Range Interpretation Comments Preg Test, Ur (test code = 2112-1) Negative [facility] [id number] 17:32:00 Test Item Value Reference Range Interpretation Comments TEST URINE (BEAKER) (test Negative code = 583) [id number] 06:43:00 Test Item Value Reference Range Interpretation Comments PHOSPHORUS (BEAKER) (test code = 2.9 mg/dL 2.3-4.7 604) [id number] 06:43:00 Test Item Value Reference Range Interpretation Comments MAGNESIUM (BEAKER) (test code = 1.7 mg/dL 1.6-2.6 627) BASIC METABOLIC [id number] 06:43:00 Test Item Value Reference Range Interpretation Comments SODIUM (BEAKER) 136 meq/L 136-145 (test code = 381) POTASSIUM (BEAKER) 3.5 meq/L 3.5-5.1 (test code = 379) CHLORIDE (BEAKER) 107 meq/L 98-107 (test code = 382) CO2 (BEAKER) (test 25 meq/L 22-29 code = 355) BLOOD UREA NITROGEN 7 mg/dL 7-21 (BEAKER) (test code = 354) CREATININE (BEAKER) 0.73 mg/dL 0.57-1.25 (test code = 358) GLUCOSE RANDOM 81 mg/dL 70-105 (BEAKER) (test code = 652) CALCIUM (BEAKER) 7.9 mg/dL 8.4-10.2 L (test code = 697) EGFR (BEAKER) (test 101 mL/min/1.73 ESTIM ATED GFR IS code = 1092) sq m NOT ACCURATE CREATININE CLEARANCE IN PREDICTING GLOMERULAR FILTRATION RATE . ESTIMATED GFR I S NOT APPLICABLE FOR DIALYSIS PATIEN TS. [id number] 11:27:00 Test Item Value Reference Range Interpretation Comments Lipase (test code = 3040-3) 9 U/L 878 Lab Interpretation (test code = Normal 59254-8) [facility] Test Item Value Reference Range Interpretation Comments PHOSPHORUS (BEAKER) (test code = 3.3 mg/dL 2.3-4.7 604) [id number] 11:27:00 Test Item Value Reference Range Interpretation Comments MAGNESIUM (BEAKER) (test code = 1.6 mg/dL 1.6-2.6 627) BASIC METABOLIC [id number] 11:27:00 Test Item Value Reference Range Interpretation Comments SODIUM (BEAKER) 136 meq/L 136-145 (test code = 381) POTASSIUM (BEAKER) 3.6 meq/L 3.5-5.1 (test code = 379) CHLORIDE (BEAKER) 105 meq/L 98-107 (test code = 382) CO2 (BEAKER) (test 24 meq/L 22-29 code = 355) BLOOD UREA NITROGEN 12 mg/dL 7-21 (BEAKER) (test code = 354) CREATININE (BEAKER) 0.76 mg/dL 0.57-1.25 (test code = 358) GLUCOSE RANDOM 81 mg/dL 70-105 (BEAKER) (test code = 652) CALCIUM (BEAKER) 8.2 mg/dL 8.4-10.2 L (test code = 697) EGFR (BEAKER) (test 96 mL/min/1.73 ESTIMA NICKY GFR IS code = 1092) sq m NOT ACCURATE CREATININE CLEARANCE IN PREDICTING GLOMERULAR FILTRATION RATE . ESTIMATED GFR I S NOT APPLICABLE FOR DIALYSIS PATIEN TS. [id number] 11:27:00 Test Item Value Reference Range Interpretation Comments LIPASE (BEAKER) (test code = 749) 9 U/L 8-78 CBC W/PLT COUNT & AUTO [id number] 11:22:00 Test Item Value Reference Range Interpretation Comments WHITE BLOOD CELL COUNT (BEAKER) 8.1 K/ L 3.5-10.5 (test code = 775) RED BLOOD CELL COUNT (BEAKER) 4.20 M/ L 3.93-5.22 (test code = 761) HEMOGLOBIN (BEAKER) (test code = 12.2 GM/DL 11.2-15.7 410) HEMATOCRIT (BEAKER) (test code = 37.8 % 34.1-44.9 411) MEAN CORPUSCULAR VOLUME (BEAKER) 90.0 fL 79.4-94.8 (test code = 753) MEAN CORPUSCULAR HEMOGLOBIN 29.0 pg 25.6-32.2 (BEAKER) (test code = 751) MEAN CORPUSCULAR HEMOGLOBIN CONC 32.3 GM/DL 32.2-35.5 (BEAKER) (test code = 752) RED CELL DISTRIBUTION WIDTH 12.3 % 11.7-14.4 (BEAKER) (test code = 412) PLATELET COUNT (BEAKER) (test 267 K/CU MM 150-450 code = 756) MEAN PLATELET VOLUME (BEAKER) 9.8 fL 9.4-12.3 (test code = 754) NUCLEATED RED BLOOD CELLS 0 /100 WBC 0-0 (BEAKER) (test code = 413) NEUTROPHILS RELATIVE PERCENT 87 % (BEAKER) (test code = 429) LYMPHOCYTES RELATIVE PERCENT 8 % (BEAKER) (test code = 430) MONOCYTES RELATIVE PERCENT 5 % (BEAKER) (test code = 431) EOSINOPHILS RELATIVE PERCENT 0 % (BEAKER) (test code = 432) BASOPHILS RELATIVE PERCENT 0 % (BEAKER) (test code = 437) NEUTROPHILS ABSOLUTE COUNT 7.04 K/ L 1.56-6.13 H (BEAKER) (test code = 670) LYMPHOCYTES ABSOLUTE COUNT 0.63 K/ L 1.18-3.74 L (BEAKER) (test code = 414) MONOCYTES ABSOLUTE COUNT (BEAKER) 0.40 K/ L 0.24-0.36 H (test code = 415) EOSINOPHILS ABSOLUTE COUNT 0.00 K/ L 0.04-0.36 L (BEAKER) (test code = 416) BASOPHILS ABSOLUTE COUNT (BEAKER) 0.02 K/ L 0.01-0.08 (test code = 417) IMMATURE GRANULOCYTES-RELATIVE 0 % 0-1 PERCENT (BEAKER) (test code = 2801)
== END 2019-10-20 18:07 | disposition left against medical advice (07) ==
LOC: ER 16:54
DX: Z02.89 Encounter for other administrative examinations (principal)

== ENCOUNTER 2019-10-22 12:28 | Emergency (ER) | payer BC ==
--- NOTE | 2019-10-22 13:36 | EDPHYS ---
Physician Documentation [facility] Name: Linda Yoder Age: 24 yrs Sex: Female : 1995 Arrival Date: 10/22/2019 Time: 12:30 Bed 6 Private MD: ED Physician Haider Li HPI: 10/21 13:34 This 24 yrs old Female presents to ER via Ambulatory with complaints of Fever.kb 13:34 The patient or guardian reports cough, that is intermittent, described as mild, kb difficulty breathing, flu symptoms, low-grade fever, myalgias, no appetite. Onset: The symptoms/episode began/occurred 4 day(s) ago. Severity of symptoms: At their worst the symptoms were moderate, in the emergency department the symptoms are unchanged. Modifying factors: The symptoms are alleviated by nothing, the symptoms are aggravated by nothing. Associated signs and symptoms: Pertinent positives: fever. The patient has not experienced similar symptoms in the past. The patient has not recently seen a physician. Pt reports cough, shortness of breath, loss of taste, fatigue, body aches, fever, and migraines for 4 days. . 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 - Social history:: Smoking status: Patient denies any tobacco usage or history of. ROS: 13:32 ENT: Negative for injury, pain, and discharge, Neck: Negative for injury, pain, and kb swelling, Cardiovascular: Negative for chest pain, palpitations, and edema, Abdomen/GI: Negative for abdominal pain, nausea, vomiting, diarrhea, and constipation, Back: Negative for injury and pain, MS/Extremity: Negative for injury and deformity, Skin: Negative for injury, rash, and discoloration. 13:32 Constitutional: Positive for body aches, chills, fatigue, fever, malaise. 13:32 Respiratory: Positive for cough, shortness of breath, Negative for dyspnea on exertion, hemoptysis, orthopnea, pleurisy, sputum production, wheezing. 13:32 Neuro: Positive for headache. Exam: 13:34 Constitutional: This is a well developed, well nourished patient who is awake, alert, kb and in no acute distress. Head/Face: Normocephalic, atraumatic. Chest/axilla: Normal chest wall appearance and motion. Nontender with no deformity. No lesions are appreciated. Cardiovascular: Regular rate and rhythm with a normal S1 and S2. No gallops, murmurs, or rubs. Normal PMI, no JVD. No pulse deficits. Respiratory: Lungs have equal breath sounds bilaterally, clear to auscultation and percussion. No rales, rhonchi or wheezes noted. No increased work of breathing, no retractions or nasal flaring. Abdomen/GI: Soft, non-tender, with normal bowel sounds. No distension or tympany. No guarding or rebound. No evidence of tenderness throughout. Skin: Warm, dry with normal turgor. Normal color with no rashes, no lesions, and no evidence of cellulitis. MS/ Extremity: Pulses equal, no cyanosis. Neurovascular intact. Full, normal range of motion. Neuro: Awake and alert, GCS 15, oriented to person, place, time, and situation. Cranial nerves II-XII grossly intact. Motor strength 5/5 in all extremities. Sensory grossly intact. Cerebellar exam normal. Normal gait. Vital Signs: 12:53 BP 110 / 73; Pulse 86; Resp 15 S; Temp 98.1(TE); Pulse Ox 100% on R/A; Weight 65.77 kg ca1 (R); Height 5 ft. 8 in. (172.72 cm) (R); 12:53 Body Mass Index 22.05 (65.77 kg, 172.72 cm) ca1 MDM: 13:00 Patient medically screened. kb 13:33 Data reviewed: vital signs, nurses notes. Data interpreted: Pulse oximetry: on room air kb is 100 %. Interpretation: normal. Counseling: I had a detailed discussion with the patient and/or guardian regarding: the historical points, exam findings, and any diagnostic results supporting the discharge/admit diagnosis, the need for outpatient follow up, a family practitioner, to return to the emergency department if symptoms worsen or persist or if there are any questions or concerns that arise at home. 10/21 13:19 Order name: COVID-19 kb Administered Medications: No medications were administered Disposition: 10/22/19 13:36 Discharged to Home. Impression: Acute upper respiratory infection, unspecified. - Condition is Stable. - Discharge Instructions: Viral Respiratory Infection, [id number]-[id number], COVID-19. - Medication Reconciliation Form, Thank You Letter, Antibiotic Education, Prescription Opioid Use form. - Follow up: Emergency Department; When: As needed; Reason: Worsening of condition. Follow up: Private Physician; When: 2 - 3 days; Reason: Recheck today's complaints, Continuance of care, Re-evaluation by your physician. Addendum: 10/24/2019 09:27 Addendum: Pt contacted at [phone] to notify of positive COVID-19 test results, feeling r n better, questions answered, told health department will be contacting for further instructions and documentation. . 10/26/2019 16:29 Co-signature as Attending Physician, Haider Li MD I agree with the assessment and k dr plan of care. Signatures: Dispatcher [employer] EDNY Samantha Mcgrath, OTOLARYNGOLOGIST-C OTOLARYNGOLOGIST-CkAlicia Restrepo, RN RN Haider Robbins MD MD [facility] [place] Alfred MD MD rn Мария, Deborah, RN RN ca1 Corrections: (The following items were deleted from the chart) 10/21 14:10 13:36 10/22/2019 13:36 Discharged to Home. Impression: Acute upper respiratory sv infection, unspecified. Condition is Stable. Forms are Medication Reconciliation Form, Thank You Letter, Antibiotic Education, Prescription Opioid Use. Follow up: Emergency Department; When: As needed; Reason: Worsening of condition. Follow up: Private Physician; When: 2 - 3 days; Reason: Recheck today's complaints, Continuance of care, Re-evaluation by your physician. kb
--- NOTE | 2019-10-22 13:36 | ER ---
Nurse's Notes [facility] [place], [place] Name: Linda Yoder Age: 24 yrs Sex: Female : 1995 Arrival Date: 10/22/2019 Time: 12:30 Bed 6 Private MD: Diagnosis: Acute upper respiratory infection, unspecified Presentation: 10/21 12:53 Chief complaint: Patient states: I can't taste anything, started this morning. Headache ca1 x 4 days. Woke up this morning with SOB, and body aches. 4 weeks. Coronavirus screen: Proceed with normal triage. Surgical mask placed on patient. Patient moved to private room, placed in contact and droplet isolation with eye protection until further assessment. Patient denies a cough. Patient reports shortness of breath or difficulty breathing. Patient reports a measured and/or subjective temperature greater than 100.4F. Patient denies travel on a cruise ship or to a country the [facility] currently lists as an affected area. Patient denies contact with known and/or suspected case of COVID-19. Surgical mask in place. Instructed on keeping mask at all times and keep 6 feet distance from other people in the lobby. Verbalized understanding. Ebola Screen: Patient negative for fever greater than or equal to 101.5 degrees Fahrenheit, and additional compatible Ebola Virus Disease symptoms Patient denies exposure to infectious person. Patient denies travel to an Ebola-affected area in the 21 days before illness onset. No symptoms or risks identified at this time. Initial Sepsis Screen: Does the patient meet any 2 criteria? No. Patient's initial sepsis screen is negative. Does the patient have a suspected source of infection? No. Patient's initial sepsis screen is negative. Risk Assessment: Do you want to hurt yourself or someone else? Patient reports no desire to harm self or others. Onset of symptoms was October 22, 2019. 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 - Social history:: Smoking status: Patient denies any tobacco usage or history of. Screenin:10 Abuse screen: Denies threats or abuse. Denies injuries from another. Nutritional sv screening: No deficits noted. Tuberculosis screening: No symptoms or risk factors identified. Fall Risk None identified. Vital Signs: 12:53 BP 110 / 73; Pulse 86; Resp 15 S; Temp 98.1(TE); Pulse Ox 100% on R/A; Weight 65.77 kg ca1 (R); Height 5 ft. 8 in. (172.72 cm) (R); 12:53 Body Mass Index 22.05 (65.77 kg, 172.72 cm) ca1 ED Course: 12:30 Patient arrived in ED. mr 12:55 Triage completed. ca1 12:56 Arm band placed on right wrist. ca1 13:00 Samantha Mcgrath FNP-C is PHCP. kb 13:00 Haider Li MD is Attending Physician. kb 13:06 Alicia Ortega, RN is Primary Nurse. sv 13:10 Patient has correct armband on for positive identification. Bed in low position. Call sv light in reach. Door closed. Head of bed elevated. 14:24 Health Dept notified/ PUI # [phone]/ Lina from lab notified. eb Administered Medications: No medications were administered Outcome: 13:36 Discharge ordered by . kb 14:10 Patient left the ED. sv Signatures: Samantha Mcgrath FNP-C IN [employer]IGHT REFUELING CRAFTSMAN-Ckb Alicia Ortega, RN RN sv Shorty Faby delgadillo NoelStaci Cheryl, RN RN ca1
[2019-10-22 14:15] VITALS: BP 110/73; TEMP 98.1; O2SAT 100
--- OUTSIDE RECORDS SUMMARY | 2019-10-22 14:19 | XMS REPORT | Clinical Summary ---
:1995 Author Organization [facility] Address [address] [place] [address] Care Team Providers Name Role Phone Asked, [...] type (Primary D x) 02/07/2019 Travel after 10/21/2018 Family History Medical History Relation Name Comments [...] are i n the results section. after 10/21/2018 Results MRI Abdomen W Wo Contrast (02/11/2019 [...] IMPRESSION: No evidence of small bowel inflammation. [facility]-[id number] Procedure Note Interface, Radiology Results Incoming - 02/11/2019 9:46 AM CDT EXAMINATION: MRI ABDOMEN W WO CONTRAST, MRI PELVIS W WO CONTRAST CLINICAL HISTORY: Concern for [place] el inflammation. Pleae perform MR enterography protocol. [...] No evidence of small bowel inflammation . [facility]-[id number] Performing Organization Address City/State/Zipcode Phone Number [facility] [address] [place] [address] MRI Pelvis W Wo Contrast (02/11/2019 8:34 [...] No evidence of small bowel inflammation . [facility]-[id number] Procedure Note Interface, Radiology Results Incoming - 02/11/2019 9:46 AM CDT EXAMINATION: MRI ABDOMEN W WO CONTRAST, MRI PELVIS W WO CONTRAST CLINICAL HISTORY: Concern for [place] el inflammation. Pleae perform MR enterography protocol. [...] No evidence of small bowel inflammation . [facility]-[id number] Performing Organization Address City/State/Zipcode Phone Number [facility] [address] [place] [address] Sedimentation rate (02/11/2019 6:00 AM CDT) Pathologist Sig nature Sedimentation rate 8 0 - 20 mm/hr [facility] Specimen Blood Performing Organization Address City/[facility]/Zipcode Phone Number [facility] DEPARTMENT OF PATHOLOGY AND [address] [place], [place] [address] [address] [facility] [address] [place] [address] CBC with platelet and differential (02/11/2019 6:00 AM CDT)Only the most recent of4 resultswithin the time period is included. Pathologist [facility] WBC 8.36 4.50 - 11.00 [facility] k/uL HOSPITAL RBC 3.86 (L) 4.20 - 5.50 [facility] m/uL [facility] HGB 11.2 (L) 12.0 - 16.0 [facility] g/dL [facility] HCT 35.7 (L) 37.0 - 47.0 % [facility] MCV 92.5 82.0 - 100.0 [facility] MCH 29.0 27.0 - 34.[address] [facility] MCHC 31.4 31.0 - 37.0 [facility] gdL [facility] RDW - SD 41.1 37.0 - 55.[address] [facility] MPV 10.6 8.8 - 13.[address] [facility] Platelet count 247 150 - 400 k/uL [facility] Nucleated RBC 0.00 /[address] [facility] Neutrophils 66.5 39.0 - 69.0 % [facility] Lymphocytes 21.3 (L) 25.0 - 45.0 % [facility] Monocytes 8.5 0.0 - 10.0 % [facility] Eosinophils 3.0 0.0 - 5.0 % [facility] Basophils 0.5 0.0 - 1.0 % [facility] Immature granulocytes 0.2Comment: 0.0 - 1.0 % [facility] "Immature HOSPITAL granulocytes" (promyelocytes , myelocytes, metamyelocytes ) Specimen Blood Performing Organization Address City/[facility] Phone Number [facility] DEPARTMENT OF PATHOLOGY AND [address] [place] [address] [address] Estimated GFR (02/11/2019 4:00 AM CDT)Only the most recent of4 resultswithin the time period is included. Pathologist [facility] Estimated GFR >=90 mL/min/1.73 [facility] Comment: m2 HOSPITAL Catergory Units Interpretation G1 [...] 2014. Specimen Plasma specimen Performing Organization Address City/[facility] Phone Number [facility] DEPARTMENT OF PATHOLOGY AND [address] [place] [address] [phone] [address] C-reactive protein (02/11/2019 4:00 AM CDT) [facility] CRP 0.49 0.00 - 0.50 mg/dL [facility] Specimen Plasma specimen Performing Organization Address [facility] Phone Number [facility] DEPARTMENT OF PATHOLOGY AND [address] [place], [place] [phone] [address] [address] Comprehensive metabolic panel (02/11/2019 4:00 AM CDT)Only the most recent of4 resultswithin the time period is included. [facility] Sodium 143 135 - 148 [facility] mEq/L [facility] Potassium 3.6 3.5 - 5.0 [facility] mEq/L [facility] Chloride 106 98 - 112 mEq/L [facility] CO2 23 (L) 24 - 31 mEq/L [facility] Anion gap 14@ANIO 7 - 15 mEq/L [facility] BUN 10 6 - 20 mg/dL [facility] Creatinine 0.81 0.50 - 0.90 [facility] mg/dL HOSPITAL Glucose 100 (H) 65 - 99 mg/dL [facility] Calcium 8.3 8.3 - 10.2 [facility] mg/dL [facility] Protein 6.5 6.3 - 8.3 g/dL [facility] Comment: HOSPITAL Azvdvys4238.6-7.0 g/dL 1 rglf0261.4-7.6 g/dL 7 months-0ecvv067.1-7.3 g/dL 1-2 mukcr254.6-7.5 g/dL >3 jzcno454.0-8.0 g/dL 18-6358997.3-8.3 g/dL Albumin 3.2 (L) 3.5 - 5.0 g/dL [facility] A/G ratio 1.0 0.7 - 3.[address] [facility] Alkaline phosphatase 49 35 - 104 U/L [facility] AST 11 10 - 35 U/L [facility] ALT 15 5 - 50 U/L [facility] Total bilirubin <0.2 0.0 - 1.2 [facility] mg/dL HOSPITAL Specimen Plasma specimen Performing Organization Address City/[facility] Phone Number [facility] DEPARTMENT OF PATHOLOGY AND [address] [place] [address] Strep screen culture (02/10/2019 10:40 PM CDT) Strep screen No beta hemolytic Streptococci isolated [facility] culture isolate Comment: HOSPITAL Specimen Information Specimen Source: Throat Specimen Site: Not otherwise specified Specimen Throat - Not otherwise specified Performing Organization Address City/[facility] Phone Number [facility] DEPARTMENT OF PATHOLOGY AND [address] [place] [address] [place] Hepatobiliary (HIDA Scan) (02/10/2019 7:43 PM CDT) Specimen Narrative Performed At Procedure: [place] HEPATOBILIARY (HIDA SCAN ) RADIANT Clinical History: Nausea vomiting Technique: The patient was injected with 4 mCi of [id number] in intravenously, followed by dynamic imaging of the abdomen in the ante rior projection for 1 hour. Findings: There is normal uptake of tracer by the liver with nor mal excretion into the biliary tree. Tracer proceeds normally into the ga llbladder and small bowel. Impression: No evidence of acute cholecystitis or co mmon bile duct obstruction. [facility]-[id number] Procedure Note Interface, Radiology Results Incoming - 02/10/2019 7:48 PM CDT Procedure: NM HEPATOBILIARY (HIDA SCAN) Clinical History: Nausea vomiting Technique: The patient was injected with 4 mCi of T [id number]-rxlqshobal intravenously, followed by dynamic imaging of the abdomen in the anterior projection for 1 hour. Findings: There is normal uptake of tracer by the liver with normal excretion into the biliary tree. Tracer proceeds normally into the gallbladder and small bowel. Impression: No evidence of acute cholecystitis or co mmon bile duct obstruction. [id number] Performing Organization Address [facility] Phone Number Yo [address] [place] [address] [place] Gallbladder (02/10/2019 3:00 PM CDT) Specimen [...] limits. IMPRESSION: Negative gallbladder ultrasound examinat ion. [facility]-[id number] Procedure Note Interface, Radiology Results Incoming - [...] limits. IMPRESSION: Negative gallbladder ultrasound examinat ion. [id number] Performing Organization Address [facility] Phone Number Yo [phone] [place] [address] Lipase level (02/10/2019 10:34 AM CDT) Pathologist Sig nature Lipase 18 13 - 60 U/L [facility] Specimen Plasma specimen Performing Organization Address City/State/Zipcode Phone Number [facility] DEPARTMENT OF PATHOLOGY AND [address] [place], [place] [address] [address] [facility] [address] [place] [address] CT Abdomen Pelvis W Contrast (02/08/2019 12:31 [...] 7 mm likely reactive in etiol ogy. [id number] Procedure Note Hm Interface, Radiology Results Incoming [...] x 7 mm likely reactive in etiology. [facility]-[id number] Performing Organization Address City/[facility] Phone Number [facility] [address] [place] [address] Hemoglobin & hematocrit (02/08/2019 6:30 AM CDT)Only the most recent of2 resultswithin the time period is included. Pathologist Sig nature HGB 11.7 (L) 12.0 - 16.0 g/dL [facility] HCT 37.5 37.0 - 47.0 % [facility] Specimen Blood Performing Organization Address City/[facility] Phone Number [facility] DEPARTMENT OF PATHOLOGY AND [address] [place] [phone] GENOMIC MEDICINE [address] [address] Urine drugs of abuse screen (02/07/2019 9:00 PM CDT) Amphetamine screen, Negative E[facility] urine [facility] Barbiturate screen, Negative [facility] urine [facility] Benzodiazepine Negative [facility] screen, urine [facility] Cocaine screen, urine Negative [facility] Methadone metabolite Negative [facility] (EDDP), urine [facility] Opiates screen, urine Negative [facility] Oxycodone screen, Negative [facility] urine [facility] Phencyclidine screen, Negative [facility] Tricyclic screen, Negative [facility] Cannabinoid screen, Negative [facility] urine Comment: ORTHODOXY Drug screen minimum concentration of detectability [facility] Amphetamines 1000 ng/mL Barbiturates 200 [...] requir ed. Specimen Urine Performing Organization Address City/[facility]/Zipcode Phone Number [facility] DEPARTMENT OF PATHOLOGY AND [address] [place], [place] [address] GENOM[address] [address] Urinalysis (02/07/2019 6:53 PM CDT) Pathologist Sig nature Glucose, UA Negative Negative [facility] Bilirubin, UA Negative Negative [facility] Ketones, UA Negative Negative [facility] Specific gravity, UA 1.020 1.001 - 1.035 [facility] Blood, UA Negative Negative [facility] pH, UA 7.5 5.0 - 8.5 [facility] Protein, UA Negative Negative [facility] Urobilinogen, UA <2.0 <2.0 [facility] Nitrite, UA Negative Negative [facility] Leukocyte esterase, Negative Negative [facility] UA [facility] Color, UA Yellow [facility] Appearance, UA Clear [facility] Specimen Urine Performing Organization Address City/[facility]/Zipcode Phone Number DEPARTMENT OF PATHOLOGY AND [address] [place], [place] [address] [facility] [address] [place] [address] EMERGENCY [facility] hCG qualitative, urine screen (02/07/2019 6:53 PM CDT) hCG qualitative, Negative [facility] urine Comment: [place] Sensitivity of HCG test: 25 mIU/mL [facility] Negative test results in patients suspected CENTER to be should be retested with a sample obtained 48-72 hours later, or by performing a quantitative assay. Specimen Urine Performing Organization Address City/State/Zipcode Phone Number DEPARTMENT OF PATHOLOGY AND [address] [place], [place] [address] GENOMIC MEDICINE, [place] [facility] [place] [address] [place] [address] EMERGENCY CARE CENTER after 10/21/2018 Advance Directives For more information, please contact: [phone] Type Date Recorded Patient Supervisor Rides Explanati on Advance Directives, Living Will and Medical Power of Disaster Director
--- OUTSIDE RECORDS SUMMARY | 2019-10-22 14:20 | XMS REPORT | Clinical Summary ---
:1995 Author Organization [facility] Address [address] [place] [address] Care Team Providers Name Role Phone Unavailable [...] Abstract Internal Medicine Varsha Blake MD after 10/21/2018 Family History Medical History Relation [...] n the results section. after 10/21/2018 Results EKG-SCANNED (01/20/2019 10:42 AM CDT) Narrative Performed At This result has an attachment that is no t available. RHYTHM STRIP - SCAN (01/20/2019 10:42 AM CDT) Narrative Performed At This result has an attachment that is no t available. Manual Differential (01/16/2019 6:10 AM CDT) % Neutros 56 % [facility] % Lymphs 28 % [facility] % Monos 7 % [facility] % Eos 6 % [facility] % Baso 2 % [facility] % Atypical Lymphs 1 (H) 0 - 0 % [facility] # Neutros 2.35 1.56 - 6.13 K/ul [facility] # Lymphs 1.18 1.18 - 3.74 K/ul [facility] # Monos 0.29 0.24 - 0.36 K/uL [facility] # Eos 0.25 0.04 - 0.36 K/uL [facility] # Baso 0.08 0.01 - 0.08 K/uL [facility] # Atypical Lymphs 0.04 (H) 0.00 - 0.00 K/uL [facility] Total Counted 100 [facility] RBC Morphology Normal [facility] WBC Morphology Normal [facility] Platelet Morph[facility] Normal [facility] Artifact Present [facility] Platelet Conc Adequate [facility] Specimen Blood Narrative Performed At Received comment: [facility] User comments: Slide comments: Performing Organization Address City/State/Zipcode Phone Number [facility] [address] [place] [address] CENTER CBC with platelet count + automated diff (01/16/2019 6:10 AM CDT)Only the most recent of3 resultswithin the time period is included. WBC 4.2 3.5 - 10.5 K/L [facility] RBC 4.09 3.93 - 5.22 M/L [facility] Hemoglobin 11.6 11.2 - 15.7 GM/DL [facility] Hematocrit 38.2 34.1 - 44.9 % [facility] MCV 93.4 79.4 - 94.8 fL [facility] MCH 28.4 25.6 - 32.2 pg [facility] MCHC 30.4 (L) 32.2 - 35.5 GM/DL [facility] RDW 12.1 11.7 - 14.4 % [facility] Platelets 253 150 - 450 K/CU MM [facility] MPV 9.8 9.4 - 12.3 fL [facility] nRBC 0 0 - 0 /100 WBC [facility] Specimen Blood Performing Organization Address City/State/Zipcode Phone Number [address] [address] CENTER Magnesium (01/16/2019 6:10 AM CDT)Only the most recent of4 resultswithin the time period is included. Magnesium 1.9 1.6 - 2.6 mg/dL [facility] Specimen Blood Performing Organization Address City/[facility] Phone Number [facility] [address] [place] [address] [place] Basic metabolic panel (01/16/2019 6:10 AM CDT)Only the most recent of4 results within the time period is included. Sodium 139 136 - 145 meq/L [facility] Potassium 3.8 3.5 - 5.1 meq/L [facility] Chloride 109 (H) 98 - 107 meq/L [facility] CO2 25 22 - 29 meq/L [facility] BUN 4 (L) 7 - 21 mg/dL [facility] Creatinine 0.77 0.57 - 1.25 mg/dL [facility] Glucose 85 70 - 105 mg/dL [facility] Calcium 8.5 8.4 - 10.2 mg/dL [facility] EGFR 95Comment: ESTIMATED GFR IS mL/min/1.73 sq m [facility] NOT ACCURATE CREATININE [facility] CENTER CLEARANCE IN PREDICTING GLOMERULAR FILTRATION RATE. ESTIMATED GFR IS NOT APPLICABLE FOR DIALYSIS PATIENTS. Specimen Blood Performing Organization Address City/[facility]/Zipcode Phone Number [address] [address] [place] XR abdomen / KUB 1 view (01/15/2019 12:40 PM CDT) Specimen Narrative Performed At FINAL REPORT GE [facility] CLINICAL HISTORY: obstruction TECHNIQUE: Supine abdomen COMPARISON: None IMPRESSION: The bowel gas pattern is nonspecific. Fr ee air and air-fluid levels are not definitively seen, but also edith ot be excluded on the supine view. Signed: Rea Beaulieu MD Report Verified Date/Time:01/15/2019 12:53:50 Reading Location: [employer] [facility] Reading Room Procedure Note Interface, External [...] 01/15/2019 1 2:53:50 Reading Location: [facility] [employer] [facility] Reading Room Performing Organization Address City/State/Zipcode Phone Number GE RIS Phosphorus (01/15/2019 5:08 AM CDT)Only the most recent of3 resultswithin the time period is included. Phosphorus 3.1 2.3 - 4.7 mg/dL [facility] Specimen Blood Performing Organization Address City/[facility]/Zipcode Phone Number [address] [address] CENTER Rapid drug screen, urine (01/14/2019 4:37 PM CDT) Barbiturate Screen Negative Negative [facility] Benzodiazepine Screen Negative Negative [facility] Cocaine (Metab.) Screen Negative Negative [facility] Methadone Screen Negative Negative [facility] Opiate Screen Positive (A) Negative [facility] Cannabinoid Screen Negative Negative [facility] Amph/Methamph Screen Negative Negative [facility] Phencyclidine Screen Negative Negative [facility] Specimen Urine Narrative Performed At Comment for Urine pH: [facility] Per recreation coordinator's recommendations, acceptable pH range for urine drug screen testing is 3 to 11. pH testing not performed on this urine sample. While physiologically incompatible, the effect on the results of testing urine outside of pH 3-11 is unknown. DRUGCUTOFF CONC. Cocaine 300 ng/mL Opyoxcvhmcj32 ng /mL Mzpltzccxurncf456 ng/mL Barbiturate 200 ng/m L Xwicqmpdacfrv90 ng/m L Gybmft779 ng/mL Methadone 300 ng /mL Amphetamine/ 1000 ng/mL Methamphetamine This assay provides an unconfirmed qualitative test result for the clinical management of patients in emergency situations. Chain of custody not maintained. Some iihd-gwj-jhmfbbi medications, as well as adulterants, may cause inaccurate results. Clinical correlation should be applied. A more comprehensive drug screen or confirmation of a detected drug may be performed upon request. Performing Organization Address City/State/[place] [address] CENTER Screen, urine (01/14/2019 4:37 PM CDT) Preg Test, Ur Negative [facility] Specimen Urine Performing Organization Address City/[facility]/Zipcode Phone Number [address] [address] CENTER REPORT OF PROCEDURE - ENDOSCOPY URL (01/13/2019 5:58 PM CDT) Narrative Performed At This result has an attachment that is no t available. Tissue Exam (01/13/2019 5:46 PM CDT) Case Report Surgical Pathology Report Case: [id number] [facility] Authorizing Provider:Moon Overton MDCollected: 01/13/[address] [place] [address] Ordering Location: [address] Received:01/14/2019 1144 Service Pathologist: Brad Preciado MD Specimen:Biopsy, Gas tric, R/O H.Pylori DIAGNOSIS A. STOMACH, RANDOM BIOPSIES: [facility] - MILD CHRONIC INACTIVE GASTRITIS [facility] - NEGATIVE FOR HELICOBACTER PYLORI ORGANISMS B Y WARTHIN STARRY STAIN - NEGATIVE FOR INTESTINAL METAPLASIA, DYSPLASI A, MALIGNANCY Signing Pathologist Direct Phone Line: CPT Code(s) 125[address] [facility] [address] [facility] SPECIMEN SOURCE A. Gastric biopsy, rule out H. C [facility] pylori [facility] GROSS DESCRIPTION The specimen is received in one part labeled with the patient's information as [id number] which corresponds to the accompanying requisition slip. [facility] A. Received in formalin labe led "gastric biopsy, r/o H.pylori" are two fragments of hathaway-pink to hathaway-white soft tissue measuring 0.2 x 0.1 x 0.1 cm in aggregate. They are submitted in toto after filtration in cassette A1. SC/pl MICROSCOPIC DESCRIPTION Performed. [facility] SPECIAL STUDIES The interpretation of this c ase included the use of immunohistochemistry or special stains. [facility] Control Slides Examined: In -house known positive controls were evaluated along with the test tissue. These control slides run alongside of the patients sample show appropriate staining. Internal posit sonia and negative controls when available are boo [place]udson Immunohistochemistry techneduardo fox testing was performed at [facility], Pathology Laboratory where it was developed and its performance characteristics were determined. It has not be en cleared or approved by [facility] U.S. Food and Drug Administration. The FDA [...] Tissue Performing Organization Address City/State/Zipcode Phone Number [facility] [address] [place] [address] CENTER Lipase (01/13/2019 10:55 AM CDT) Lipase 9 8 - 78 U/L [facility] Specimen Blood Performing Organization Address City/State/Zipcode Phone Number [facility] MED[facility] [address] [place] [address] CENTER after 10/21/2018 Insurance Payer Benefit Plan / Subscriber ID Type Phone Address Group BLUE CROSS/BLUE BCBS PPO POS EPO xxxxxxxxxxxx PPO [phone] [address] [place] [address] Advance Directives For more information, please contact:[facility] [place], [place] [phone] Code Status Date Activated Date Inactivated Comments Full Code 01/13/2019 9:10 AM 01/16/2019 2:53 PM This code status was determined by: Patient
--- OUTSIDE RECORDS SUMMARY | 2019-10-22 14:23 | XMS REPORT | Continuity of Care Document ---
:1995 Author Organization [facility] t Address [address] [place] [address] Care Team Providers Name Role Phone Asked, [...] Date S amanuel BCBSBCBS CHOICE xxxxxxxxxxxx 2018 [place] PPO/FEDERAL EMPL 00:00:00 Methodis t PPOxxxxxxxxxxxx2018-PresentP PO BLUE CROSS/BLUE xxxxxxxxxxxx MILAGROS Matos - SHIELDBCBS PPO Medical Ce nter POS EPO CHOICExxxxxxxxxx [phone] [id number], [place] [address] Problems Condition Condition Condition Status Onset Resolution [...] Date Intractabl Intractabl Disease Resolve 2018-042019-02-12 2019-02-12 [place] e vomiting e vomiting d 0-26 00:00:00 14:15:15 Methodi 00:00: st 00 Allergies, Adverse Reactions, Alerts Allergy Allergy Status Severity Reaction(s) Onset Inactive Treating Comm ents Source Name Type Date Date Clinician Haloperi Propensi Active Hallucinatio 2018-04 [place] dol ty to ns 0-26 Methodi adverse 00:00: st reaction 00 s to drug Family History Family Member Diagnosis Comments Start Date Stop Date Source Natural father Nephrolithiasis [facility] Maternal grandmother Hypertension [facility] Maternal grandmother GERD [place] Natural mother No Known Problem [facility] Other Colon cancer [place] Meth odist Social History Social Habit Start Date Stop Date Quantity Comments Source Sex Assigned At [place] M ethodist Alcohol intake 2019-02-11 2019-02-11 Current drinker [place] 00:00:00 00:00:00 of alcohol (finding) History [facility] 2019-02-09 2019-02-09 2 [place] Meth odist Alcohol Frequency 00:00:00 00:00:00 History [facility] 2019-02-09 2019-02-09 1 [place] Meth odist Alcohol Std Drinks 00:00:00 00:00:00 History [facility] 2019-02-09 2019-02-09 1 [place] Meth odist Alcohol Binge 00:00:00 00:00:00 Alcohol Comment 2019-02-09 2019-02-09 Holidays only, [place] 00:00:00 00:00:00 1-2 drinks Smoking Status Start Date Stop Date Source Never smoker [place] Methodis t Medications Ordered Filled Start Stop [...] nausea or vomiting. gabapentin 2018-04- No 100mg Q.[id number] Take 100 [facility] (NEURONTIN) 0-31 10-31 [id number] mg by Methodi 100 mg 16:36: 00:00 [...] times a day. gabapentin 2018-04- No 300mg Q.[id number] Take 1 [facility] (NEURONTIN) 0-31 10-30 [id number] capsule Methodi 300 mg 00:00: 23:59 3D [...] 2{spray Q4H Apply 2 [place] (CHLORASEPT 0-31 11-07 } sprays to Me thodi IC) 1.4 % 00:00: 23:[address] aerosol,spr 00 :00 or throat ay every 4 (four) hours as needed (sore throat) for up to 7 days. Lactobacill 2018-04- No 1{tbl} Q.5D Take [address] us 0-04 11-03 tablet by [facility] - acidoph-L.b 00:00: 23:59 mouth 2 Me [...] 15 days. gabapentin 2019-1 2019- No 200mg Q.[id number] Take [address] [facility] (NEURONTIN) 0-01-24 [id number] capsules [facility] - 100 MG 00:00: 23:59 3D (200 mg Medical capsule 00 :00 total) by Center mouth 3 (three) times daily for 10 days. HYDROcodone 2018-04 2019- No 1{tbl} Take [address] -acetaminop 001-24 tablet by Maryann randle (NORCO 00:00: 23:59 mouth Medic al 5-325) 00 :00 every 6 Center 5-325 mg (six) per tablet hours as needed for Pain for up to 10 days. Max Daily Amount: 4 tablets Vital Signs Vital Name Observation Time Observation Value Comments Source Systolic blood 2019-02-12 11:22:58 108 mm[Hg] [place] [facility] pressure Diastolic blood 2019-02-12 11:22:58 71 mm[Hg] [place] pressure Heart rate 2019-02-12 11:22:58 63 /min [place] [facility] Body temperature 2019-02-12 11:22:58 35.78 Mel [place] [facility] Respiratory rate 2019-02-12 11:22:58 18 /min Gregory [facility] Sabianist Oxygen saturation in 2019-02-12 11:22:58 97 /min [place] [facility] Arterial blood by Pulse oximetry Body height 2019-02-09 22:07:20 172.7 cm [place] [facility] Body weight 2019-02-07 17:57:00 70.308 kg [place] [facility] BMI 2019-02-07 17:57:00 23.57 kg/m2 [place] [facility] Heart rate 2019-01-16 09:30:00 74 /min [facility] Respiratory rate 2019-01-16 09:30:00 18 /min [facility] Oxygen saturation in 2019-01-16 09:30:00 99 /min [facility] - Arterial blood by Medical Ce nter Pulse oximetry Systolic blood 2019-01-16 07:24:00 109 mm[Hg] [facility] Diastolic blood 2019-01-16 07:24:00 62 mm[Hg] [facility] S t [facility] Body temperature 2019-01-16 07:24:00 36.61 Mel [facility] Body weight Measured 2019-01-15 07:33:00 80.06 kg [facility] BMI 2019-01-15 07:33:00 26.84 kg/m2 [facility] Body height 2019-01-13 15:56:00 172.7 cm [facility] Procedures Procedure Date / Time Performing Clinician Source Performed MRI ABDOMEN W WO 2019-02-11 08:34:00 Len Navarro Met hodist CONTRAST Khodadad MRI PELVIS W WO CONTRAST 2019-02-11 08:34:00 Len Navarrou [place]on [facility] Khodadad HC COMPLETE BLD COUNT 2019-02-11 06:00:00 Tomy Malone W/AUTO DIFF SEDIMENTATION RATE 2019-02-11 06:00:00 Len Navarro ethodist Khodadad COMPREHENSIVE METABOLIC 2019-02-11 04:00:00 Tomy Malone PANEL C-REACTIVE PROTEIN 2019-02-11 04:00:00 Len Navarro ethodist Khodadad ESTIMATED GFR 2019-02-11 04:00:00 Emerson Gonzalez STREP SCREEN CULTURE 2019-02-10 22:40:00 Amadou Polanco [place] HEPATOBILIARY 2019-02-10 19:43:13 Len Navarro Met hodist Khodadad US GALLBLADDER 2019-02-10 15:00:00 Len Navarro Meth odist Khodadacorey LIPASE LEVEL 2019-02-10 10:34:00 Len Navarro Meth odist Khodadad HC COMPLETE BLD COUNT 2019-02-10 05:00:00 Tomy Malone W/AUTO DIFF COMPREHENSIVE METABOLIC 2019-02-10 04:00:00 Tomy Malone PANEL ESTIMATED GFR 2019-02-10 04:00:00 Emerson Gonzalez HC COMPLETE BLD COUNT 2019-02-09 06:30:00 Tomy Malone W/AUTO DIFF COMPREHENSIVE METABOLIC 2019-02-09 04:00:00 Tomy Malone [facility] PANEL ESTIMATED GFR 2019-02-09 04:00:[address] ABDOMEN PELVIS W 2019-02-08 12:31:15 Amadou Polanco CONTRAST Michelle HEMOGLOBIN & HEMATOCRIT 2019-02-08 06:30:00 Tomy Malone HEMOGLOBIN & HEMATOCRIT 2019-02-08 02:00:00 Tomy Malone URINE DRUGS OF ABUSE 2019-02-07 21:00:00 Amadou Polanco Sabianist SCREEN Michelle URINALYSIS 2019-02-07 18:53:00 Romero Archibald Met hodist HCG QUALITATIVE, URINE 2019-02-07 18:53:00 Romero Archibald Sabianist SCREEN HC COMPLETE BLD COUNT 2019-02-07 18:04:00 Romero Archibald on Sabianist W/AUTO DIFF COMPREHENSIVE METABOLIC 2019-02-07 18:04:00 Romero Archibaldu ston Sabianist PANEL ESTIMATED GFR 2019-02-07 18:04:00 Romero Archibald Met hodesequiel REPORT OF PROCEDURE - 2019-01-20 10:42:18 Provider, Default [facility] ENDOSCOPY SCAN Scanning [facility] RHYTHM STRIP - SCAN 2019-01-20 10:42:08 Provider, Default [facility] BASIC METABOLIC PANEL 2019-01-16 06:10:00 Enedina [facility] (7) [facility] MAGNESIUM 2019-01-16 06:10:00 Mariposa Austin [facility] CBC W/PLT COUNT & AUTO 2019-01-16 06:10:00 Mariposa Austin [facility] S t [facility] DIFFERENTIAL [facility] (CELLAVISION MANUAL 2019-01-16 06:10:00 ManheimMariposa [facility] L ukes - DIFF) [facility] XR ABDOMEN / KUB 1 VIEW 2019-01-15 12:40:00 Enedina [facility] PHOSPHORUS 2019-01-15 05:08:00 Carole Newell [facility] BASIC METABOLIC PANEL 2019-01-15 05:08:00 Mariposa Austin [facility] (7[facility] MAGNESIUM 2019-01-15 05:08:00 Enedina [facility] CBC W/PLT COUNT & AUTO 2019-01-15 05:08[facility] 2019-01-14 16:37:00 Enedina [facility] RAPID DRUG SCREEN, URINE 2019-01-14 16:37:00 Enedina [facility] BASIC METABOLIC PANEL 2019-01-14 05:18:00 Carole Newell [place] [id number]) [facility] MAGNESIUM 2019-01-14 05:18:00 Carole Newell [facility] PHOSPHORUS 2019-01-14 05:18:00 Carole Newell [facility] REPORT OF PROCEDURE - 2019-01-13 17:58:31 Moon Alvarez I [facility] ENDOSCOPY [facility] TISSUE EXAM 2019-01-13 17:46:00 Moon Alvarez [facility] UPPER ENDOSCOPY,BIOPSY 2019-01-13 16:00:00 Moon Alvarez [facility] BASIC METABOLIC PANEL 2019-01-13 10:55:00 Carole Newell [address] MAGNESIUM 2019-01-13 10:55:00 Carole Newell [facility] PHOSPHORUS 2019-01-13 10:55:00 Carole Newell [facility] LIPASE 2019-01-13 10:55:00 Carole Newell [facility] CBC W/PLT COUNT & AUTO 2019-01-13 10:55:00 Carole Newell [facility] Plan of Care Planned Activity Planned Date Details Comments Source Future Scheduled 2019-11-14 INFLUENZA VACCINE [place] Test 00:00:00 [code = INFLUENZA VACCINE] Future Scheduled 2018 Screening for [facility] Me thodist Test 00:00:00 malignant neoplasm of cervix (procedure) [code = 404874142] Future Scheduled 2013 CHLAMYDIA SCREENING [place] Test 00:00:00 [code = CHLAMYDIA SCREENING] Results Test Description Test Time Test Comments Results Result Comments Source Rapid drug screen, urine 2019-06-07 07:05:00 Test Item Value Reference Range Interpretation Comme nts Barbiturate Screen (test code = Negative Negative 40873-7) Benzodiazepine Screen (test code = Negative Negative 74515-2) Cocaine (Metab.) Screen (test code = Negative Negative 3397-7) Methadone Screen (test code = Negative Negative 37273-5) Opiate Screen (test code = 91657-2) Positive Negative A Cannabinoid Screen (test code = Negative Negative 45418-4) Amph/Methamph Screen (test code = Negative Negative 89285-3) Phencyclidine Screen (test code = Negative Negative 37688-4) ERI (test code = ERI) Comment for Urine pH: Per licensed practical nurse's recommendations, acceptable pH range for urine drug [...] situations. Chain of custody not maintained. Some bvfz-xbv-iezeeot medications, as well as adulterants, may cause inaccurate results. Clinical correlation should be applied. A more comprehensive drug screen or confirmation of a detected drug may be performed upon request. Lab Interpretation (test code = Abnormal 95063-9) [facility] [id number] 07:05:00 Test Item Value Reference Range Interpretation [...] code = 608) Comment for Urine pH:Per licensed practical nurse's recommendations, acceptable pH range for urine drug [...] emergency situations. Chain ofcustody not maintained. Some lxwk-jwh-jgclqcc medications, as well as adulterants, may cause inaccurate results. Clinical correlation should be applied. A more comprehensive drug screen or confirmationof a detected drug may be performed upon request. Strep screen [id number] 11:43:14 Test Item Value Reference Range Interpretation Comments Strep screen No beta hemolytic Specimen culture Streptococci InformationSpec imen isolate (test isolated Source: Throat Specimen code = 2246) Site: Not other mcwilliams specified [place] [facility] Pelvis W Wo [id number] 09:43:23Hm Interface, Radiology Results - 02/11/2019 9:46 [...] is seen.IMPRESSION: No evidence of small bowel inflammation.[facility]-[id number] MethodistMRI Abdomen W Wo [id number] 09:43:23Hm Interface, Radiology Results 02/11/2019 9:46 AM CDTEXAMINATION: MRI ABDOMEN W [...] is seen.IMPRESSION: No evidence of small bowel inflammation.[facility]-[id number] MethodistSedimentation [id number] 08:55:23 Test Item Value Reference Range Interpretation Comments Sedimentation rate (test code = 8 0- 20 mm/hr 06837-5) [facility] [id number] 08:08:10 Test Item Value Reference Range Interpretation Comments CRP (test code = 1988-5) 0.49 mg/dL 0-0.5 [place] MethodistComprehensive metabolic [id number] 08:08:09 Test Item Value Reference Range Interpretation Comments Sodium (test code = 143 135- 148 mEq/L 2951-2) Potassium (test code = 3.6 3.5- 5.0 mEq/L 2823-3) Chloride (test code = 106 98- 112 mEq/L 2075-0) CO2 (test code = 2027-) 23 24- 31 mEq/L L Anion gap (test code = 14@ANIO 7- 15 mEq/L 23821-6) BUN (test code = 3094-0) 10 mg/dL 6-20 Creatinine (test code = 0.81 mg/dL 0.5-0.9 2160-0) Glucose (test code = 100 mg/dL 65-99 H 2345-7) Calcium (test code = 8.3 mg/dL 8.3-10.2 52348-0) Protein (test code = 6.5 g/dL 6.3-8.3 9994.6-7.0 2885-2) g/dL1 itrn2071.4-7.6 g/dL7 months-6mohi461 .1- 7.3 g/dL1-2 .6-7.5 g/dL>3 wzqoe695.0-8.0 g/kN04-1604670. 3-8 .3 g/dL Albumin (test code = 3.2 g/dL 3.5-5 L 1751-7) A/G ratio (test code = 1.0 0.7-3.8 1759-0) Alkaline phosphatase 49 U/L 35-104 (test code = 6768-6) AST (test code = 1920-8) 11 U/L 10-35 ALT (test code = 1742-6) 15 U/L 5-50 Total bilirubin (test <0.2 0-1.2 code = 1974-2) Lab Interpretation (test Abnormal code = 30504-0) [place] MethodistEstimated [id number] 08:08:08 Test Item Value Reference Range Interpretation Comments Estimated GFR (test >=90 mL/min/1.73 m2 Caterg ory Units code = 5488) InterpretationG 1 >=90 Normal or highG2 60-89 Mildly zxrjilfuhJ5v 45-59 Mildly to mode rately dhvnuwsrdR0l 30-44 Moderately to severely decreasedG4 15-29 Severely decre asedG5 <15 Kidn ey failureThe eGFR was calculated jackie terrell the Chronic Kidney Disease Epidemiology Co llaboration (CKD-EPI) equat ion. Interpretation is based on recommendations of the National Kidney Foundation-Kidn ey Disease Outcomes Qualit y Initiative (NKF-KDOQI) pub lished in 2013. Simone LaneShiprock-[facility] Centerb with platelet and [id number] 07:11:12 Test Item Value Reference Range Interpretation Comments WBC (test code = 89988-3) 8.36 4.50- 11.00 k/uL RBC (test code = 97111-9) 3.86 m/uL 4.2-5.5 L HGB (test code = 718-7) 11.2 g/dL 12-16 L HCT (test code = 4544-3) 35.7 % 37-47 L MCV (test code = 787-2) 92.5 fL 82-100 MCH (test code = 785-6) 29.0 pg 27-34 MCHC (test code = 786-4) 31.4 g/dL 31-37 RDW - SD (test code = 41.1 fL 37-55 30874-1) MPV (test code = 74689-8) 10.6 fL 8.8-13.2 Platelet count (test code 247 150- 400 k/uL = 53443-0) Nucleated RBC (test code 0.00 /100 WBC = 16958-6) Neutrophils (test code = 66.5 % 39-69 07676-6) Lymphocytes (test code = 21.3 % 25-45 L 42231-2) Monocytes (test code = 8.5 % 0-10 15875-5) Eosinophils (test code = 3.0 % 0-5 68035-7) Basophils (test code = 0.5 % 0-1 24545-9) Immature granulocytes 0.2 % 0-1 "Immat ure (test code = 06861-1) granul ocytes" (promyelocytes, myelocytes, metamyelocytes) Lab Interpretation (test Abnormal code = 71218-0) Simone McgheeWA Hepatobiliary (HIDA Scan)2019-02-10 19:45:10Hm Interface, Radiology Results - 02/10/2019 7:48 PM CDTProcedure: NM HEPATOBILIARY (HIDASCAN)Clinical History: Nausea vomiting Technique:The patient was injected with 4 mCi of Pp-82b-lzrzouzcds intravenously, followed by dynamic imaging of the abdomen in the anterior projection for 1 hour.Findings:There is normal uptake of tracer by the liver with normal excretion into the biliary tree. Tracer proceeds normally into the gallbladder and small bowel. Impression:No evidence of acute cholecystitis or common bile duct obstruction. [id number] [place] SabianistUS [id number] 15:03:14 Interface, Radiology Results 02/10/2019 3:06 PM CDTEXAMINATION: US GALLBLADDERCLINICAL HISTORY: Abd pain unspecifiedCOMPARISON: None.FINDINGS:Gallbladder: The gallbladder is without evidence of calculi. The gallbladder wall is not thickened and there is no pericholecystic fluid.CBD: 4 mm , within normal limits.Portal vein: The portal vein demonstrates normal hepatopetal flow. The p ortal vein measures 1.2 cm, within normal limits.IMPRESSION:Negative gallbladder ultrasound examination.[facility]-[id number] MethodistLipase [id number] 14:14:26 Test Item Value Reference Range Interpretation Comments Lipase (test code = 3040-3) 18 U/L 13-60 [place] MethodistCT Abdomen Pelvis W [id number] 13:05:02[facility], Radiology Results 02/08/2019 1:08 PM CDTEXAMINATION: CT [...] x 7 mm likely reactive in etiology. [facility]-[id number] MethodistHemoglobin & [id number] 06:58:47 Test Item Value Reference Range Interpretation Comments HGB (test code = 718-7) 11.7 g/dL 12-16 L HCT (test code = 4544-3) 37.5 % 37-47 Lab Interpretation (test code = Abnormal 62952-3) Simone Ernst drugs of abuse hanxgw0905-02-04 22:35:00 Test Item Value Reference Interpretation Comments Range Amphetamine screen, Negative urine (test code = 3349-8) Barbiturate screen, Negative urine (test code = 3377-9) Benzodiazepine Negative screen, urine (test code = 3390-2) Cocaine screen, Negative urine (test code = 3397-7) Methadone Negative metabolite (EDDP), urine (test code = 64125-8) Opiates screen, Negative urine (test code = 3879-4) Oxycodone screen, Negative urine (test code = 77965-6) Phencyclidine Negative screen, urine (test code = 3936-2) Tricyclic screen, Negative urine (test code = 90859-9) Cannabinoid screen, Negative Drug scr een minimum [...] is requ ired. Simone McgheehCG qualitative, urine [id number] 19:02:40 Test Item Value Reference Range Interpretation Comments hCG qualitative, Negative Sensitivity of HCG test: urine (test code = 25 mIU/mL Negative test 2106-3) results in lizzie ents suspected to be should be retes nicky with a sample obtained 48-72 hours later, or by performing a qu antitative assay. [place] BdjbjpehbJgfqcfrhxz5615-01-36 19:02:40 Test Item Value Reference Range Interpretation Comments Glucose, UA (test code = 25305-4) Negative Negative Bilirubin, UA (test code = 5770-3) Negative Negative Ketones, UA (test code = 2514-8) Negative Negative Specific gravity, UA (test code = 1.020 1.001-1.035 5811-5) Blood, UA (test code = 5794-3) Negative Negative pH, UA (test code = 5803-2) 7.5 5.0-8.5 Protein, UA (test code = 14110-3) Negative Negative Urobilinogen, UA (test code = <2.0 <2.0 54941-3) Nitrite, UA (test code = 5802-4) Negative Negative Leukocyte esterase, UA (test code = Negative Negative 5799-2) Color, UA (test code = 5778-6) Yellow Appearance, UA (test code = 5767-9) Clear [place] [facility]SA[facility] with platelet count + automated [id number] 07:27:00 Test Item Value Reference Range Interpretation [...] 450 K/CU MM MPV (test code = 86706-8) 9.8 fL 9.4-12.3 nRBC (test code = 413) 0 0- 0 /100 WBC Lab Interpretation (test code = Abnormal 99438-5) [facility] [id number] 07:27:00 Test Item Value Reference Range Interpretation [...] comments: Lab Interpretation (test Abnormal code = 86412-7) [facility] W/PLT COUNT & AUTO [id number] 07:27:00 Test Item Value Reference Range Interpretation [...] K/uL 0.00-0.00 H (CELLAVISION)(BEAKER) (test code = 2858) TOTAL COUNTED (BEAKER) (test code = 100 1351) RBC MORPHOLOGY (BEAKER) (test code Normal = 762) WBC MORPHOLOGY (BEAKER) (test code Normal = 487) PLT MORPHOLOGY (BEAKER) (test code Normal = 486) ARTIFACT (CELLAVISION)(BEAKER) Present (test code = 3432) PLATELET CONCENTRATION Adequate (CELLAVISION)(BEAKER) (test code = 3438) Received comment: User comments: Slide comments:Basic metabolic [id number] 06:55:00 Test Item Value Reference Range Interpretation Comments Sodium (test code = 139 meq/L 810-009 8835-2) Potassium (test code = 3.8 meq/L 3.5-5.1 2823-3) Chloride (test code = 109 meq/L 98-107 H 2075-0) CO2 (test code = 25 meq/L 22-29 2028-9) BUN (test code = 4 mg/dL 7-21 L 3094-0) Creatinine (test code = 0.77 mg/dL 0.57-1.25 2160-0) Glucose (test code = 85 mg/dL 70-105 2345-7) Calcium (test code = 8.5 mg/dL 8.4-10.2 80892-5) EGFR (test code = 95 mL/min/1.73 [place] [address]-2) NOT ACCURATE CREATININE CLEARANCE IN PREDICTING GLOMERULAR FILTRATION RATE . ESTIMATED GFR I S NOT APPLICABLE FOR DIALYSIS PATIEN TS. Lab Interpretation Abnormal (test code = 26587-9) [facility] 06:55:00 Test Item Value Reference Range Interpretation Comments Magnesium (test code = 89619-6) 1.9 mg/dL 1.6-2.6 Lab Interpretation (test code = Normal 00424-0) [facility]2019-10-04 06:55:00 Test Item Value Reference Range Interpretation Comments MAGNESIUM (BEAKER) (test code = 1.9 mg/dL 1.6-2.6 627) BASIC METABOLIC [id number] 06:55:00 Test Item Value Reference Range Interpretation [...] DIALYSIS PATIEN TS. RAD, ABDOMEN/KUB, 1 VIEW [id number] 12:53:00Reason for exam:->r/o obstructionShould this be performed at the bedside?->YesFINAL REPORT CLINICAL HISTORY: obstruction TECHNIQUE: Supine abdomen COMPARISO N: None IMPRESSION: The bowel gas pattern is nonspecific. Free air and air-fluid levels are not definitively seen, but also cannot be excluded on the supine view. Signed: Rea Blankenship Verified Date/Time: 01/15/2019 12:53:50 Reading Location: [facility] Radiology Reading Room XR abdomen / KUB 1 view 2019-01-15 12:53:00Interface, External Ris In - 01/15/2019 12:56 PM CDTFINAL REPORT CLINICAL HISTORY: obstruction TECHNIQUE: Supine abdomen COMPARISON: None IMPRESSION: The bowel gas pattern is nonspecific. Free air and air-fluid levels are not definitively seen, but also cannot be excluded on thesupine view. Signed: Rea Blankenship Verified Date/Time: 01/15/2019 12:53:50 Reading Location: [facility] Reading [facility] [id number] 11:40:00 Test Item Value Reference Range Interpretation Comments Case Report (test code Surgical Pathology = 104) Report Case: [id number] Authorizing Provider: Moon Alvarez MD Collected: 01/13/2019 1746 Ordering Location: [address] Received: 01/14/2019 1144 Service Pathologist: Brad Preciado MD Specimen: Biopsy, Gastric, R/O H.Pylori DIAGNOSIS (test code = j1jkoDLrNSYmi7jdSDZkhD 3220) FuZzEwMzNcZnRuYmpcdWMx XHstwhQmKWgiz2GsP9TbSb AwMFxhbnNpXGRlZmxhbmcx IRXkAKY9pmNwAXLzFRdeMQ BxXAmoOe0xpWWjkZygJbHt TOPig9itrrJArpvkwKb8c4 rrSWNjTeA4qRAhXAblO0yl jxKpkSTsKEJyCAz7gK44IO UunU2vlLGyGPzvfeFxGhK3 PVwkXDDsOvG5OQYstOTxNE AlT2pfJOYlOIhmDQDcJXzc iXEvAOF6dSfjl1S5nBPhtW FriJbnTeNtWtUdLANCw9Ri RXo3rPxwM3RaOIWzCiS5xK QgUGFyYWdyYXBoIEZvbnQ7 xC74KPcucwF0jLKtb4Njx9 4oz093yX8suUFjFKM6WNXe OTEtiFKjVHRkHNT6KAXxlO RzK6v8NgWgvUJeU5Y6NfQy dADsW5P2ZmPvnTQlO6P2Qp HcaCFuSBImyEEpYs7djNHk yGQxgs8ppd55SSG6x8JmiL kaADB9LFL5HtKoTk6tsMUw KKSiZW3rPsBcbDFtPOVmfu 06kEfaHHlmptNziW3nDsPb VD5mvBvtd46pIQFcMH4aaY 0kht8iqfWrTDazyCEfrQU1 eipcSMP7ULSzrmIqz5Ljv1 kwHyZaqsAlF8yyF4PoTFCe MUDzGCHzSoKwdsIef8Dao0 WzaLKjwTe7t3teNZNiHIQs jIbjh8ocQKH6SUIsM7C2xX Xbw9qvGSopEWElzUQ2ssgd NDzcZXOvdwM7adtyQUumFK WvuOF4mwlcCMzuNZNyQfR8 wqozVXtkAERiNSL1LAbzf7 30SVW8SZtyQljlGDbsKXUj bmNvbnRccGduZGVjXHBsYW luXHBsYWluXGYwXGZzMjRc fXDbYXzuh4UodaGgkMwnPI XuYKj0vdDaqtnrbNo1lJLz sHxxRGYjvPdtbY8oZxVmUp MtWOfeRF4aQBXtR2bgdQIg PFRfNHAzG3iyEnZfbO3vhE xmMVxmczIwIEEuIFxwbGFp blxmMVxmczIwXGxhbmcxMD UkHVyaS4dgDpHvVCTkxNad HHnoc5YlNTWsREYaLnkojt UcHWc4bfZfMNVJP75ZV7nj IFxwbGFpblxmMVxmczIwXG pjozdoTVSnTCfrZ0hlOiZa ZORrjDejGGkzt0YoIJFiFD FzMfQiHeBEAN9PZOygxCPl blxmMVxmczIwXGxhbmcxMD ArZUkbH2srIjAjPBWapXdo ICbyn0YhHSFzAPIfVkjyfr KjDLq1azAfNMUDF8LGEQNe YWluXGYxXGZzMjBcbGFuZz EwMzNcaGljaFxmMVxkYmNo WYCxAMiiD0hrQyZiVjGpKS YHZSXinGvayA3kCrSsSpKz UDdiDI1aVGQrJ5jwcFXxUQ CwFQBmF8isReMdwS8tsExq MVxjZjJcZnMyMFxsdHJjaC U0WZDlaahauCGgeexlFBuc czIwXGxhbmcxMDMzXGhpY2 ybHhCyGATomCohQCpcf7Wf XGYxXGZzMjAgIFxwbGFpbl xmMVxmczIwXGxhbmcxMDMz PIhbH3axYmOlNGOgfPxnNT yap3GeQUQwCPDiYkdtccBq HBf2kmSbAS8adAlsyB9rLb IhBwPlKTpyPQ5vBSAeR4nk xNXaEHEhSDWsO6inNlFjxP 9jaFxmMVxmczIwICBccGxh gN1sWyVxQoMfVUqvLR5hQU XwS6xqwRNgHJVoTECkE2se EmMosQ3ymDazIQtuLbHtTy MyMFxsdHJjaCAgTUlMRCBD SFJPTklDIElOQUNUSVZFIE wCQ8WJEMWMM9nueKWvutzh MVxmczIwXGxhbmcxMDMzXG xeX2vtGgMgJROshJthIRyp u1JoFVIrHPPwAtBbyHEfTW HgiEyodB5hVwArKkAqLDja NI6eNEBgZ0jdgQXiQZUvZT RgD8dvCnNfgT0ttObhTBgc ZjJcZnMyMFxsdHJjaCAtXH BsYWluXGYxXGZzMjBcbGFu ZzEwMzNcaGljaFxmMVxkYm NpSEWtEPimN3suXxTvPfCc MCAgXHBsYWluXGYxXGZzMj BcbGFuZzEwMzNcaGljaFxm XByuYuAhVDTxSQdvB3poWy VyD5BgIYMfOoTgqFKbD8wk HL6UY5QLEHOZELAIPzPURQ cHX03BKDQRBVTiBJkEV2DM MW3XB1GESRCIKaSAEMMCAP JUSElOIFNUQVJSWSBTVEFJ JwwaIYWvbHJhDWzrz1Dpbt FhdXgwXHMwXHFsXHBsYWlu APXfVGOmPaCnlUjyjF9vMg YsViViMKniHB6mJARiO9ji uUWeTTQfZYWaA2gkQlExpM 9jaFxmMVxmczIwICBccGxh gK7nJnTiBwEaHXdjVK5eXX UfA3zcvDMyFRJlEAMcA5rv ZjQtzZ7irNrwIGyuPiEsIt MyMFxsdHJjaCAtXHBsYWlu XGYxXGZzMjBcbGFuZzEwMz NcaGljaFxmMVxkYmNoXGYx CGjsD8stLzDdMbJhPUVgHG BsYWluXGYxXGZzMjBcbGFu ZzEwMzNcaGljaFxmMVxkYm WkSRNbEUybZ2neToHxP8Ls ZKPcZhDaqMBsI3fjCK7MB0 FMIECRKFCBJgOWTbLBH3ZZ SqQFXG3GVICCSJRHCQBlKC PLU9JXLNHNENilVGBQQXpV VG3QWZauvRUhlaiyYSqjei IhZUptomjeCEDkHZywP6ki PjYcUFHbxZstOMibf0KwSE FsCAGfUaAvmAVgIGBzqt95 ETS2OvBcp5R1PGJ0JXGpLM Ovg3baZMJtaRZdUpGjXbXn ZnRuYmpcdWMxXGRlZmYwe1 tpj155yEKqm3umXWPvSwI1 sEOtBISxfZLjY982JRUxMS gum6tmp4VmPPKtsDXpw7H6 VTAUtenviPj0zCtvL36gu1 R7UcosS7whYFSxYMMxK8Ep EN2aMOOaCas5FWY0CTB7QN PkQJDsU2HkHL1uKEQxdBHy KLs0w9vsqDzuQNKuEBB5w3 xyTNwamoYhNA1axx8wkJy0 b7bxdlSzQYSkVNKkvINNOB SpR9BzbFdsJt1aqEq0oQey LfqpCPF4Eda6DB8gps16om a1sWjvZRTokupqVnM1UOjp MJEedylqQWb9FZaeDOSydI N9DBBqgUVpW9YjAOAqQH2s yad4RMK4MYchDMLzWpS0GI EnqPTrZUOngEbqUAwdl025 JAU4WgUuTF2aN8Spk7F8tK 9maXRcZGVmdGFiNzIwXGZv di8pfXYbXUhxr1UzFOV2zz T7cTAwyFZtFGAzZhU0NHqh AF4ari61XRFxDQG2hd3ehL KmtQkksfIadBKcGZaiB7Sp JALjh185FEPsU9LxIWXjm3 K5hyEqYrGmPRWsfSF7tkB3 SMJkUT7updcwg6apIMwzMS vyGYFfuiC9kqO4BRUkiZEa X7TnyT7sJEQyIX8mcqdwt1 erUHF5WSrgJIDtOOX3ZaMw KBClc7Jlfvk6FlIds6BypG MaUHwwF61xd157UDDnwaEj P5pbhWViwakpjXRaullcFI kqamN5ZWQvTQlipecxMETq LMhsA2pfVjNyHUEhsNtfWR eiv4BwHHHrUCZmLwCurPPp PQHtOxw5ARElvBLsRCHoHy KlE7gkjelcBuKTHMZlb1nv S3ckfSHXtDTsG3TxSBwnbp HwCBjwAVeiDBQ3LKJ4Ml67 RrW9ZPSjkl73 CPT Code(s) (test code x3leoLBqRIZffQEiGcZbMM = 3357) MnWNBdb5ubHKWatVMxGxOh MzNcZnRuYmpcdWMxXGRlZm Uzn6avk731vIPxr3kfFOEf HoL6rPKpCCIclONiU922a0 qbl6vojbIzwSO3MWKaJFX7 KPinifRbufZ8WEbepORzSh H4DIyxncXkDAaukkXvuhQl Gmd2AKWlA449YEX9pPsjp0 tgERT9FHRvOXWmGoAnBj5z dKJjN501QBQxMCGSNYJvhM h1YJJbjtDjnqJixEXHy467 J754x7dbUPWduaQauDcFjc atr0pfM610TDXayNKdrxNn VfJvHXRffOKijHR4FGYdKC 7ghcjvPbMlSD8edusiQfQx VX9doxi7EtKdWE4qzxsbGe YvAJsjLGGpwlssWCMug4Po pzqrHV4dK1Nhj7R5iS5ctK OwJGXfpNEbYtTmGJMeut8n uTOwGGoor2DdHHF0tjM5pF LqhNYfKAVzHH25Qmfmw8Yu LjmdLVQ9HSLyvcHqa0Qna2 mbOeTmeuEaC1mpO5EcIUPh XWQcJBXnKuRcwbOtb5Bkb9 BymDQqmMf3b3kbJTSlSKCf uQunh6eaDSF6MQWeC0I7kC Xwx1clFIxlQQLhsSJ8ghqs OQffXIFmqxY7hhjlZOcvUZ ZsxQX8loxrNLyiHONmXiD8 yirqHFrpTTXiAGW4PUxss7 55FFQ2JWytMczhUScbAGHu bmNvbnRccGduZGVjXHBsYW luXHBsYWluXGYwXGZzMjRc tNgmxBghnC9sMrFmTnHpUY qaAX8yOBBbZ4zzhPVaEXVp IJWvC3qeAzUqaI3kwKbzPN vwytIgGKp4KeF5COZznpP4 ODMxMlxwYXJ9 SPECIMEN SOURCE (test c9menWNiPERmlCUsEpVxPL code = 3377) YqNKLzf6ysJZIdaBJgQzVl MzNcZnRuYmpcdWMxXGRlZm Bbj5ivw366vKFrk0ahZTWb SnB7aMCvNEGtfWBzW462a2 plt7ifwiJjyGS7ASTbTZH2 SEokvdPjiuT3CXmxcNRhJu V2QJwhjuWhHPsiouDswqRd Zbv1LZWcX941FQJ1dAvhh6 itZPN5ILSoEVQqBrKrDm0y lWAnH952NNKlDYRABZSkxB p7NSQuyaWzztVbiBDQz655 T108k6dyRTMwmsJzvXeQfg rrb4bhP507OTEiqNIurhWz HfXzGNUrzNPdgKH8KJXfSU 7byjxzDqSgIK6wldicNuEo AP4khgn4WzKlQG4kgndbQj NyGRwdDZVvtgjwJNMec0Gj hfeoDA3qY1Lyv5S2gW5cwO RnAXLsxEVhMpYbYARpon3f eVRyJCdya5KdJWL1moH9oF AkfYKcAURfCG70Jbsna4Gf FfbaGUH8JDPscrVyi1Iix2 jcTyTgygUzR3vvU2PoIUIv CQQoUVSuHqNxsnJht1Anm8 UduMFhmGn6o1qkRACnZQEw wNmwz8rdARL4OGHqG2X1qQ Ziv9vsTNwnFQYoxMA7nuhc TMupCUJsxoV0vvphQVrxKP EysTN4utjaIJwoYPZsZuE9 ifpcRMcmCDTnERH3JDrsj8 97FFR8UNwrFcxpTAonJHHw bmNvbnRccGduZGVjXHBsYW luXHBsYWluXGYwXGZzMjRc sLiiiCbidG0eLkZlFcYrIA uzQU1dHOTaA3atfXBgLCPq ESDaH4sfZfNdpY7jnJifON hjoyPzVIIrBLnfb5EgpPEf EvtvwHY9BNHydVurCQ28nL BILiBweWxvcmlccGFyfQ== GROSS DESCRIPTION (test q5dapPOaMPWhgECmYkApOE code = 3366) FiMFBwv0onPSGglVAlJiGd MzNcZnRuYmpcdWMxXGRlZm Czb6yoj949gOYnf1geRJOb GoA8oRIwOZWwkPIiE832RV MbOVuoc2uyy4AxPPAjxSRu j2M6OQEDpbwsyTb7qHbeG9 0pf2I0FbmvR6wyYJVgYZvq WVLfHEqpgMFxMHC3UTVeAR Y0NLslaaIcjoO7PMbdwSQp FiF1ZHw0f0gvpIzjVKKnRH U4d9qsJZduquEaNR0amz8w sDa6c9iktoMsXCUjPUAncP FFFTLoI0RwnNkaUc7itDk1 cIyoApclSLV4Zod2RR3vev 19cyx2hDznFBYmnbomIfJ5 CWcyZFYewuiiBYx0ORrqBC JnbDcyMFxtYXJncjcyMFxt YXJndDcyMFxtYXJnYjcyMF vsNMUlLUR4GUkxu556CCL3 POhnb4xif0pvfBWdTvn3WI DdVvZqSrquXPdgq6Xjx9rc FHFigy9xRJQ7dCFtuNvej2 H0aRNuJWTkaUXwxsDfOQWa OaP8VTfjHM0okt72ZYLvHY C0da3xjZCdnBhvlaWyhXCp KErxQ3SsBIXir393VZUkE2 CjNWHvr1S8mtWoSbUbNAMe yEQ0inH8HKNdHOd9hADfwr I0vcDctCHfD9xcwS91HqPo eHNuF5SsvA20ZnPnaDYsW4 YfoI07TvLrfOPeG0BjpP60 LwMkwTQkGMOmyGIhDe9atY LwgWFqk8UniXVcZGxwV48o b164HCPvdvFnX7injCMmit xwbGFpblxmMFxmczIwXHFs XHBsYWluXGYwXGZzMjBccG idlT7hUaApPuMmOTROwRSi n8DuY7zmPQ6urQLqkjAjOX z9TNFluH0wt90pYQTwcnCy eCWsEIjbQXK0jFVrHZBiUS HbRDKcTA26F4AihY5sk9Sa ARJva91vXFTgKnO0ZDN7Th Y6UEiuwTNkZTZkkxOse3Vc ppKkFMApYAYdEXQmK0TzsO BhbnlpbmcgcmVxdWlzaXRp y28zl3lilD1kJMSkzdnaNV AkNR2yRvHtVSc2FPJppY7q Ky1erMVlfY5qaHGtVJuuTE NjI3NcnXMuGmZudE8ok9jw SRZaytSOYbB9lN3fkYMzAE QfYKP4aeJszqNbeXHafJJc p6NeqZZrXERtlrhcyD5jaP FuLXdoaXRlIHNvZnQgdGlz r5DwRZ5vRSY5enydXbXxTp InvTQvVbDgqPHfLdMrC18h dR6xRAjkxzQxTVYcRyCJsD C2PDEaXKAhrYChkJV7JMOo uV3srX46ktMhXwDeqhVmqP a5drF2eD5aIFqoNLVdc5Nw sHXhEZLwZaRoV3AywIdarE FyfQ== MICROSCOPIC DESCRIPTION h1zxnSZtEYGktKKhKoPhCH (test code = 3371) GxHVJps7kmLDFbjMHwVgAt MzNcZnRuYmpcdWMxXGRlZm Mrm5tmw059wOKpt2zcNNQx MuC3kLNtOTUuxOUxZ590GE CvOCcvn0osm1ObGXBztMEd q3P0OVJLoxzrpBe5dNpfR6 2zh4X8FhuiL4aaFVZeOCwr GJWiUJyvyIAoTBQ5EFUnXG B1MZhcosValsG0NQlpoGDq LwY1OEi2x8dzvLlzITFiKE B1a5mxBXtsmnLkER6fml0m zVj7c3utykEoKEDfIYJozM ODRJKnH9EjdOzxAm1baZj9 iRypMnstEUR1Xws9BT9shc 22dwg8qRrrWXLcsypzTyK7 PVboMWXwnunlCOy5WDwaJG JnbDcyMFxtYXJncjcyMFxt YXJndDcyMFxtYXJnYjcyMF yvQOYxXDD1CSkcf450IKQ8 WHrgy5dwh0yulCTtJlg7LZ NlJjVwTmfjNNaib8Ewm7cl GTBmqh2rGTJ8iKCuwTkpy8 J1fAYbPUQcxEGpjaDnPXNm hh88sDLieTJvpFEgnn0jqq TsoLIloJApRDC8jNIndkCe ALIguETuDITjUT4uvDQdTL VkbQ5szefsDLMmWcDzypag FNQgeSinqoMeMu4euFlsCY W1VCgsG0sagC6vSrG0BQrt F7zksI5rRWi8LTttuUA7TG FgjS4qLI0ukbgrv6jiVhIq WJ9qdbowd5fnPqWaDD1fbd z6g1yfPnDcFC7idwybt7ly NzIwXGhlYWRlcnkwXGZvb3 RoglibEOBfm5NfX7HllGtv K73naMhqM91rUYQemHjooW 8tqQptoY1iQkJuSbXtQRdm bFxwbGFpblxmMFxmczIwXH BsYWluXGYxXGZzMjAgUGVy Rs8dqILrSxzdYKMdzGAhlO == SPECIAL STUDIES (test x8jpaXRpHWQds7mfMVQkvD code = 3376) FuZzEwMzNcZnRuYmpcdWMx SJqqvxThCRked7DdQ8FrWd AwMFxhbnNpXGRlZmxhbmcx PLVtAMM0tuWrPUUeGKldKA UgVCkoGx8bzLQwyDesQdWo ATUjl8cvvuFOjsijcKz1c5 vhNVUeFiO1jPTyEBkuC1id cqJebVCmS3AutRElqPl5y0 ynVvYtRqT5dMLzMDerH3zw zbAzdOZaNDQnZNh7nZ73EV RtnT7raMZmOMlpqyIrDnK1 MGkcRFOmEjA9WGCjiOIsIN NjN4pjHVYcAFhhOBIpWGti jVHfYTR4yVipl4M1bIZgeY TznCzeBeZwLeVkGpLXc9Wr JQs9nWzuE4FeHRReVqU1yP QgUGFyYWdyYXBoIEZvbnQ7 cPmvkmHcq91aqFTeFYXxMF OaUwNfbNbiLPYsZRJOa1Ac wNnmWSG3jDn9zZxxErhgZG J4Egp7SE1ees59cdc7vYlt ZRIfnbltSpD6FBslEGCymq osXOy3WUcoYWEjzTI3LQRs oIUtR1RpKLWaES6qvxz7BX X4JSdqPNWmSwR1HAZfvSIq SGNgrJubMCliy524IQK3Si BfLO1zK5Iau0I9eC1zuHHl KPCypTTpQjDbZNFcsw3oaD RoEJxlv1KcVIQ6hrF5nCHi uOEcBWPoIR79Fyfqm4OyTz hzh2IxX98kkJJ5NObkm1tf WC5kQnW5duVyQKsuy0yonO 2wShG6DOhuGH3hVU6mIJKb bK7jcfvxYAWgYeCkgyufMB VliLihgoSxMk0ueGfmYYU5 EDttV0ndyT2aRaN9DGqlV9 bzfE0wBEn3DEnhiDE4WTHn fI6lUX5qxqsjl7hrOLicMO emTYIuotV7zgU8QJLfoSZq X8SthF2sWRRfBA2kszciw0 uhIZG8ATpwETErDJU0ZnOt JHWov3Otobz6BoPmq5TucN XlOWlaR00zw063KUYiywKz U1pbrXJnylvxwMVgmeljWT jpnhO1TMCxOWUxCPevCRUa XGZzMjJcbGFuZzEwMzNcaG ljaFxmMVxkYmNoXGYxXGxv K7cbDhNeW9HuUIZcFsAaHT nzFMprcBHimVJaqCJ6xQ6z QB1oVGSusSPnT5ZnMDIikw EivBHpMLZ9fZXjmTHaXT8o PAhgrDDwm3gqu9PgP3ahtM gmjIC3KB7bAMHjSQTiFIhi m5HuiG2aCgintRFmbwhcEI xmczIyXGxhbmcxMDMzXGhp P3xyQaQuPWDltFuiUCuqt0 NoXGYxXGNmMlxmczIyXGx0 cmNoXHBhclxwYXJccGxhaW 2zTjHfQkWvXnwkZJ5lRBBc G6seqLJiMSIpDUUjL6laTr SdeO9grVpdCUbgVtJlWtYj WlTHo438nv1qXQOlbVItlm AYjWQzqT3qOMrnVNqsRUzs zMDgMFhda6piZNTbt2g7mY LuRNMwssFww8txXFivxzPr IHTgzQBtqGAeRRWuk53gCH emyDubcKcqIVQch7KotQad f0HkZbWdBOxqg6TzH85nzG JvbCBzbGlkZXMgcnVuIGFs e56mg8kwXCIgUoU0tOWphI M2pLPtvFWil5QdsMpwYPXv z2kdNWDlhm4bmzkggWZge9 VznG8yuekyKPlupLYwqtLy TMRqx6j4yIMqRBJdAXTbFE jpiLa4HAYlh992ju2vpeG4 lJCvBCA0LCutLJCwVVOwgm UgZXZhbHVhdGVkXHBsYWlu XGYxXGZzMjJcbGFuZzEwMz NcaGljaFxmMVxkYmNoXGYx IVbrD1bwUlSwD5EaHMLnYm ButRSwH1aowVYdSTHeLJox XGYxXGZzMjJcbGFuZzEwMz NcaGljaFxmMVxkYmNoXGYx MGluW6skGnTkM0GbCVGrNb IgIFxwbGFpblxmMVxmczIy ECavlzuvOXTrCQnoA5iiDi SpAQCudDywCZbfy7QdWJLq OZFgXnathzJsFPd5rnInGW BhclxwbGFpblxmMVxmczIy ZRcmqwghSKFsIQauR2ueKd CvNJUkaTfoNHzne6BzWGVg XGNmMlxmczIyIEltbXVub2 vvs2NjR7arrYdksUY7KHEk C7vytDDpqJX2JIQ7nG7yZM zlmiRdOMXbh8OtLRNlXGGi DwE8oK7hNLX2JsTTfDjvTU BsYWluXGYxXGZzMjJcbGFu ZzEwMzNcaGljaFxmMVxkYm LtHVJbAMpfY5asYyUpL6Tq NZEqOhJlcZtzKNfuTGk0Mn xwbGFpblxmMVxmczIyXGxh dhxfJBJmRJgmZ4ylXcTdEN McvStrJCdfe9LmMHAiKIZf MlxmczIyIHMgTWVkaWNhbC BGVV48YNDeULCwiOamyP2m tNVCRTWogeK5v9G2EPfkGV TqNAi0SHnwolVvLLKtuT5w YKUsVN2wXYt0shViUFCih1 JhJQ2dFYIdbVNbTPU0TPRi o7MtM5Zeg9ZlBHHrPQRyxn 9yeeErBxFKkLJeYTWdcf09 PJLxOS0aL7wnDPCoSOYfmh EnuPGvm3NzOHXzqTN2pJAu FY1EHqEFx96tMQAlHNBAfp LhHMNcmYcvbEF2egJ4kW7j LiBUaGUgRkRBIGhhcyBkZX Umgf7quoSwPXUyTWXpx2Uz kGPgnJYqueFqY3Spe7GaYA Puyb47HFdveFZref76ZX9u O4Bwu9XxnT8kGIdyZMCcf3 UhrHJawVBzKWCbc8IqO2wg suyyKGselDOshW3rLQLcWK m2BNHqg4BqNKOfb1YhRcGq cjCyJKFoMASgTSDajK39KU T2pAaotDjssmFsZE3eCRSj cwGnVDYqHFUtqX7uMGillx RkNGKmtbR2m3F7RDsoIXBy smUuJojrGYX2vvOynyV0hY RrX3ilslrtFMvnCSLoq5Vh fI7ppTZTqAIbm3AqkTUekL UOnHMoDU5kgrUtCH0bEPO0 ODggKENMSUEtODgpIGFzIH P2KGeaRypvUVR9wiBmPMFl r3QjDGckO9brX92ypWbtuI e1gKJmaZjlcNEdbPCwXNJs jmA9d4Y1WTMwg3UlyvndBE BsYWluXGYyXGZzMjJcbGFu ZzEwMzNcaGljaFxmMlxkYm GyIEAtYByaX0wvWnFlBhNx UyfbQBI9uY== [id number] 11:40:00Surgical Pathology Report Case: [id number] Authorizing Provider: Moon Alvarez MD Collected: 01/13/2019 1746 Ordering Location: [address] Received: 01/14/2019 1144 Service Pathologist: Brad Preciado MD Specimen: Bi opsy, Gastric, R/O H.Pylori A. STOMACH, RANDOM BIOPSIES: - MILD CHRONIC INACTIVE GASTRITIS - NEGATIVE FOR HELICOBACTER PYLORI ORGANISMS BY WARTHIN STARRY STAIN - NEGATIVE FOR INTESTINAL METAPLASIA, DYSPLASIA, MALIGNANCY Signing [employer] Phone Line: [phone] signed by Brad Preciado MD on 01/15/2019 at 11:40 [id number]. Gastric biopsy, rule out H. pyloriThe specimen is received in one part labeled withthe patient's information as [id number] which corresponds to the accompanying requisition slip. [...] evaluated Immunohistochemistry technical testing was performed at [facility], Pathology Laboratory where it was developed and [...] clinical laboratory testing.CBC W/PLT COUNT & AUTO [id number] 07:43:00 Test Item Value Reference Range Interpretation [...] GRANULOCYTES-RELATIVE PERCENT (BEAKER) (test code = 2801) [id number] 06:23:00 Test Item Value Reference Range Interpretation Comments Phosphorus (test code = 2777-1) 3.1 mg/dL 2.3-4.7 Lab Interpretation (test code = Normal 00491-9) [facility] Test Item Value Reference Range Interpretation Comments PHOSPHORUS (BEAKER) (test code = 3.1 mg/dL 2.3-4.7 604) [id number] 06:23:00 Test Item Value Reference Range Interpretation Comments MAGNESIUM (BEAKER) (test code = 2.3 mg/dL 1.6-2.6 627) BASIC METABOLIC [id number] 06:23:00 Test Item Value Reference Range Interpretation [...] NOT APPLICABLE FOR DIALYSIS PATIEN TS. Screen, [id number] 17:32:00 Test Item Value Reference Range Interpretation Comments Preg Test, Ur (test code = 2112-1) Negative [facility], [id number] 17:32:00 Test Item Value Reference Range Interpretation Comments TEST URINE (BEAKER) (test Negative code = 583) [id number] 06:43:00 Test Item Value Reference Range Interpretation Comments PHOSPHORUS (BEAKER) (test code = 2.9 mg/dL 2.3-4.7 604) [id number] 06:43:00 Test Item Value Reference Range Interpretation Comments MAGNESIUM (BEAKER) (test code = 1.7 mg/dL 1.6-2.6 627) BASIC METABOLIC [id number] 06:43:00 Test Item Value Reference Range Interpretation [...] S NOT APPLICABLE FOR DIALYSIS PATIEN TS. [id number] 11:27:00 Test Item Value Reference Range Interpretation Comments Lipase (test code = 3040-3) 9 U/L 8-78 Lab Interpretation (test code = Normal 34237-4) [facility] 11:27:00 Test Item Value Reference Range Interpretation Comments PHOSPHORUS (BEAKER) (test code = 3.3 mg/dL 2.3-4.7 604) [id number] 11:27:00 Test Item Value Reference Range Interpretation Comments MAGNESIUM (BEAKER) (test code = 1.6 mg/dL 1.6-2.6 627) BASIC METABOLIC [id number] 11:27:00 Test Item Value Reference Range Interpretation [...] S NOT APPLICABLE FOR DIALYSIS PATIEN TS. [id number] 11:27:00 Test Item Value Reference Range Interpretation Comments LIPASE (BEAKER) (test code = 749) 9 U/L 8-78 CBC W/PLT COUNT & AUTO [id number] 11:22:00 Test Item Value Reference Range Interpretation [...]
== END 2019-10-22 14:10 | disposition home or self-care (01) ==
LOC: ER 12:28
DX: O98.511 Other viral diseases complicating pregnancy, first trimester (principal); O99.511 Diseases of the respiratory system complicating pregnancy, first trimester; U07.1 COVID-19; J98.8 Other specified respiratory disorders; Z3A.01 Less than 8 weeks gestation of pregnancy
CPT/HCPCS: 99281; U0001